=== PATIENT | female | born 1945 | race Caucasian/White ===

== ENCOUNTER 2018-05-21 18:34 | Inpatient (IN) | payer MEDICARE ==
[2018-05-21] MEDS ORDERED: Furosemide IV* 10 MG/ML VIAL (40 MG) IV ONE (19:06)
--- NOTE | 2018-05-21 19:13 | ED ---
Shortness of Breath - HPI Summary HPI Summary: This is a 72-year-old woman who presents to the emergency department with a history of progressive onset shortness of breath over the past several weeks. She had open heart surgery last month and apparently did well with that and felt generally well when she went home, but since that time she has become more and more short of breath. There has been some cough, occasionally productive of hicks green sputum. There is definitely orthopnea, the patient sleeps and rests in a recliner chair. There has not been any fever. Appetite has been diminished. There has been chest pain, but this appears to be related to her surgery, and has been present since that time area and there has been no change in the character or intensity of the chest pain. She has also been suffering reportedly from infection in the surgical wound in her leg where her grafting was done from. She was on Bactrim for this, is now on clindamycin. She has daily dressing changes with a visiting nurse. A chest x-ray was reportedly done 4 days ago. Her ability to exert herself and ambulate has been definitely impaired by this. - History of Current Complaint Chief Complaint: EDShortnessOfBreath Time Seen by Provider: 05/21/18 18:52 - Allergy/Home Medications Allergies/Adverse Reactions: Allergies Allergy/AdvReac Type Severity Reaction Status Date / Time cephalexin [From Keflex] Allergy Rash Verified 05/21/18 19:09 glucosamine Allergy Swelling Verified 05/21/18 19:09 ibuprofen Allergy Vomiting Verified 05/21/18 19:09 iodine Allergy Swelling Verified 05/21/18 19:09 metformin Allergy Diarrhea Verified 05/21/18 19:09 rofecoxib Allergy Unknown Verified 05/21/18 19:09 Reaction Details ropinirole [From Requip] Allergy Dizziness Verified 05/21/18 19:09 shrimp Allergy Hives Verified 05/21/18 19:09 Home Medications: Home Medications Docusate Sodium 100 mg PO BEDTIME 05/21/18 [History Confirmed 05/21/18] PMH/Surg Hx/FS Hx/Imm Hx Endocrine/Hematology History: Reports: Hx Diabetes Cardiovascular History: Reports: Hx Angina, Hx Hypercholesterolemia, Hx Hypertension Respiratory History: Reports: Hx Sleep Apnea GI History: Reports: Hx Gastroesophageal Reflux Disease, Hx Ulcer - Stomach Musculoskeletal History: Reports: Hx Arthritis, Hx Back Problems, Hx Fibromyalgia, Other Musculoskeletal History - Carpal Tunnel Left Wrist; Bilateral Knee Pain Sensory History: Reports: Hx Contacts or Glasses Denies: Hx Hearing Aid Opthamlomology History: Reports: Hx Contacts or Glasses Neurological History: Reports: Other Neuro Impairments/Disorders - Peripheral Neuropathy; Restless Leg Syndrome Psychiatric History: Reports: Hx Anxiety, Hx Depression, Hx Panic Disorder, Other Psychiatric Issues/Disorders - Insomnia - Cancer History Cancer Type, Location and Year: Squamous Cell Cancer - Surgical History Surgery Procedure, Year, and Place: Hysterectomy in 1989 at [facility] [place]; Laproscopic Tubal Ligation 1980 at [facility] [place]; Right Shoulder Surgery 1985 at [facility] [place]; Endoscopy in 1990 Infectious Disease History: No Infectious Disease History: Denies: Traveled Outside the [place] in Last 30 Days - Social History Alcohol Use: None Hx Substance Use: Yes Substance Use Type: Reports: Prescribed Smoking Status (MU): Current Some Day Smoker Type: Cigarettes Amount Used/How Often: 1-2 per day Have You Smoked in the Last Year: No Review of Systems Negative: Fever, Chills Eyes: Negative ENT: Negative Positive: Chest Pain - Chronic as noted in history of present illness Positive: Shortness Of Breath - As above Negative: Abdominal Pain, Vomiting, Diarrhea, Nausea Positive: no symptoms reported All Other Systems Reviewed And Are Negative: Yes Physical Exam - Summary Physical Exam Summary: General: This is a well-developed, well- nourished obese elderly woman lying on the stretcher in no apparent distress. The patient does not appear ill or toxic. HEENT:Extraocular movements are intact. Conjunctiva are normal without pallor. Pharynx is clear without exudate or swelling. Dentition is unremarkable. There is no sign of head trauma. Neck: Supple, no adenopathy noted. Lungs: Lungs are clear to auscultation. There are no signs of respiratory distress. I do not detect a pleural effusion on exam. Coronary: Peripheral perfusion is good. Heart sounds are regular, a normal S1 and S2 were auscultated. There is no gallop rhythm, nor any pathological sounded murmurs. Her sternotomy incision appears clean and dry. Abdomen: The abdomen appears normal and is nondistended. Normoactive bowel sounds are present. On palpation, there is no significant tenderness, nor any guarding or rebound. Genitourinary: Deferred Back: Good range of motion is observed. There are no surface abnormalities nor any scoliosis. Extremities: Good range of motion was observed in all 4 extremities. There is no sign of any trauma to the extremities. The surgical grafting sites on the left leg are moderately erythematous, and there is some bogginess about the incision and somewhat proximal to the incision concerning for a fluid collection. There is fairly marked peripheral edema noted in the skin is quite tense. Neurologic: The patient is awake and alert, speech is fluent in conversation is appropriate. There are no focal motor abnormalities. Cranial nerves are grossly intact. There is no ataxia observed. Psychiatric. The patients affect is felt to be normal and appropriate. There is no sign of any hallucinations or delusions, or any other signs of psychosis Triage Information Reviewed: Yes Vital Signs On Initial Exam: Initial Vitals Temp Pulse Resp BP Pulse Ox 36.6 C 81 20 129/72 93 05/21/18 18:36 05/21/18 18:36 05/21/18 18:36 05/21/18 18:36 05/21/18 18:36 Vital Signs Reviewed: Yes Diagnostics - Vital Signs Vital Signs Temp Pulse Resp BP Pulse Ox 05/21/18 18:36 36.6 C 81 20 129/72 93 - Laboratory Result Diagrams: 05/21/18 19:44 05/21/18 19:44 Lab Statement: Any lab studies that have been ordered have been reviewed, and results considered in the medical decision making process. - Radiology No standard instances Radiology Interpretation Completed By: ED Physician Summary of Radiographic Findings: CXR shows large left pleural effusion, stable compared to study of several days ago, with new right sided opacity, perhaps a RML infiltrate. Pending official Radiologist report. - EKG 2016 Cardiac Rate: NL EKG Rhythm: Sinus Rhythm - 81 BPM Summary of EKG Findings: Abnormal T, diffuse leads. Course/Dx - Diagnoses Provider Diagnoses: Peripheral edema, Dyspnea - Physician Notifications Discussed Care of Patient With: Bess Wang Time Discussed With Above Provider: 21:45 Instructed by Provider To: Admit As Inpatient Discharge - Sign-Out/Discharge Documenting (check all that apply): Patient Departure Patient Received Moderate/Deep Sedation with Procedure: No - Discharge Plan Condition: Fair Disposition: ADMITTED TO [facility] Referrals: Carlos Hurst MD [Primary Care Provider] - - Billing Disposition and Condition Condition: FAIR Disposition: Admitted to [facility] - Attestation Statements Document Initiated by Scribe: No
--- OUTSIDE RECORDS SUMMARY | 2018-05-21 19:45 | XMS REPORT | Continuity of Care Document ---
:1945 External Reference #:[id number] Author Name Riri Bolivar Care Team Providers Name Role Phone Alden Houston M.D. Care Team Information Head Well Puller Unavailable Payers Date Identification Numbers Payment Provider Subscriber Policy Number: [id number] [employer] Lily Yo PayID: [id number] [address] [address] Attn: [place] [address] Advance Directives Description No Information Available Problems Description No Information Family History Description No Information Available Social History Type Date Description Comments Sex Unknown Allergies, Adverse Reactions, Alerts Description No Information Medications Description No Information Immunizations Description No Information Available Vital Signs Description No Information Available Results Description No Information Available Procedures Date Code Description Status 04/13/2018 58605 Cath PLMT&NJX L Ventriculog Img S&I Completed 04/12/2018 03380 ECHO Transthorasic Realtime 2D W Doppler & Color Flow Hosp Completed 04/12/2018 34215 Treadmill Interp/Report Only Completed 04/12/2018 70029 Stress Test Supervsn W/Out I/R Completed Encounters Type Date Location Provider Dx Diagnosis Office Visit 04/12/2018 [facility] Polo Haney R07.9 Chest pain, 3:08p Of Ld Pope M.D. unspecified I25.110 Athscl heart disease of [place] cor art w unstable ang pctrs Plan of Treatment Future Appointment(s):05/12/2018 4:00 pm - Polo Pope M.D. at [facility]
--- OUTSIDE RECORDS SUMMARY | 2018-05-21 19:45 | XMS REPORT | Continuity of Care Document ---
:1945 External Reference #:[id number] Author Name Marlin Aaron Care Team Providers Name Role Phone Carlos Hurst MD Primary Care Physician Unavailable Payers Date Identification Numbers Payment Provider Subscriber Policy Number: [id number] [facility] [employer] Lily Yo PayID: [id number] [address] [address] Attn: [place] [address] Advance Directives Description No Information Available Problems Description No Information Family History Description No Information Available Social History Type Date Description Comments Sex Unknown Tobacco Use Start: Unknown End: Former Cigarette Smoker Unknown ETOH Use Denies alcohol use Tobacco Use Start: Unknown End: Patient is a former smoker Unknown Recreational Drug Use Denies Drug Use Tobacco Use Start: Unknown Heavy tobacco smoker (more than 10 cigarettes/day) Smoking Status Reviewed: 05/12/18 Heavy tobacco smoker (more than 10 cigarettes/day) Allergies, Adverse Reactions, Alerts Date Description Reaction Status Severity Comments 05/12/2018 Glucosamine Active 05/12/2018 Iodine Active 05/12/2018 Keflex Active 05/12/2018 Metformin Active 05/12/2018 Motrin Active 05/12/2018 Requip Active 05/12/2018 Rofecoxib Active Medications Medication Date Status Form Strength Qnty SIG Indications Ordering Provider Nortriptyline HCL Active Capsules 10mg 1 by mouth Unknown /0000 every day Omeprazole 00 Active Capsules 10mg 90cap 2 by mouth Unknown /0000 DR fallon every day Pioglitazone HCL 0000 Active Tablets 45mg 1 by mouth Unknown /0000 every day Pramipexole 00 Active Tablets 0.5mg 1 po at Unknown Dihydrochloride /0000 bedtime Pramipexole 0000 Active Tablets 1mg take 2 Unknown Dihydrochloride /0000 tablet by mouth at bedtime Pregabalin 00/00 Active 100mg 1 Unknown /0000 cap po every 8 hours Ventolin HFA Active Aerosol 108(90Bas 2 puffs by Unknown e) mouth four mcg/Act times a day as needed Sulfamethoxazole/Tr Active Tablets 800-160mg 1 po twice Skezmanisha imethoprim daily x 7 MD Carlos completed 05/218 Aspirin Active Tablets 81mg [address] every day Atorvastatin Active Tablets 40mg 1 tablet Unknown Calcium po daily Diclofenac Sodium Active Gel 1% as needed Aris, MD Carlos Glipizide ER Active Tablets 10mg 2 tablet Aris, ER 24HR po daily MD Carlos Hydrochlorothiazide Active Tablets 25mg Take One Unknown Tablet By Mouth Every Day Hydrocodone-Acetami Active Tablets 10-325mg 1-2 tablet Aris, nophen po every MD Carlos four hours as needed Losartan Potassium Active Tablets 100mg 1 po daily Bobezmanisha, MD Carlos Metoprolol Active Tablets 25mg Unknown Succinate ER /0000 ER 24HR Torsemide Active Tablets 10mg 90tab take 3 Polo s tablet by artis Mathis M.D. every day Immunizations Description No Information Available Vital Signs Date Vital Result Comment 05/12/2018 4:29pm Weight 247.00 lb with shoes Heart Rate 80 /min BP Systolic Sitting 120 mmHg Lue lg cuff BP Diastolic Sitting 62 mmHg Lue lg cuff BP Systolic Standing 120 mmHg Lue lg cuff BP Diastolic Standing 64 mmHg Lue lg cuff Respiratory Rate 16 /min Ejection Fraction 45-50% date 04/17/18 ECHO Results Description No Information Available Procedures Date Code Description Status 05/12/2018 05249 EKG Tracing & Interpretation Completed 04/13/2018 84396 Cath PLMT&NJX L Ventriculog Img S&I Completed 04/12/2018 72987 ECHO Transthorasic Realtime 2D W Doppler & Color Flow Hosp Completed 04/12/2018 07827 Treadmill Interp/Report Only Completed 04/12/2018 90876 Stress Test Supervsn W/Out I/R Completed 04/11/2018 80629 EKG, Interpretation Only Completed Encounters Type Date Location Provider Dx Diagnosis Office Visit 05/12/2018 [facility] Polo Haney I25.110 Athscl heart 4:00p Of Ld Pope M.D. disease of [place] cor art w unstable ang pctrs I10 Essential (primary) hypertension Office Visit 04/13/2018 [facility] I25.110 Athscl heart 9:45a [facility] [place] disease of Hospitalists [place] cor art w unstable ang pctrs I10 Essential (primary) hypertension Office Visit 04/12/2018 3:08p [facility] Polo Haney R07.9 Chest pain, Of Ld Pope M.D. unspecified I25.110 Athscl heart disease of [place] cor art w unstable ang pctrs Office Visit 04/11/2018 9:43a [facility] Idania Monae, R07.9 Chest pain , [facility] unspecified Hospitalists R06.02 Shortness of breath I10 Essential (primary) hypertension E11.9 Type 2 diabetes mellitus without complications Plan of Treatment Future Appointment(s):05/28/2018 2:30 pm - Abbey Wolfe, N.P. at [facility]05/12/2018 - Polo Pope M.D.I25.110 Atherosclerotic heart disease of [place] coronary artery withNew Labs:Basic Metabolic Panel, Ordered: 05/12/18Follow up:2 weeks with NPRecommendations:Increase Toresmide to 3 tabs [id number] Essential (primary) hypertension
--- OUTSIDE RECORDS SUMMARY | 2018-05-21 19:45 | XMS REPORT | Continuity of Care Document ---
:1945 External Reference #:[id number] Author Name Marlin Aaron Care Team Providers Name Role Phone Carlos Hurst MD Primary Care Physician Unavailable Payers Date Identification Numbers Payment Provider Subscriber Policy Number: [id number] [facility] [employer] Lily Yo PayID: [id number] [address] [address] Attn: [place] [address] Advance Directives Description No Information Available Problems [...] Available Procedures Date Code Description Status 05/12/2018 06615 EKG Tracing & Interpretation Completed 04/13/2018 58865 Cath PLMT&NJX L Ventriculog Img S&I Completed 04/12/2018 40585 ECHO Transthorasic Realtime 2D W Doppler & Color Flow Hosp Completed 04/12/2018 50814 Treadmill Interp/Report Only Completed 04/12/2018 05630 Stress Test Supervsn W/Out I/R Completed 04/11/2018 78166 EKG, Interpretation Only Completed Encounters Type Date Location Provider Dx Diagnosis Office Visit 05/12/2018 [facility] Polo Haney I25.110 Athscl heart 4:00p Of Ld Pope M.D. disease of [place] cor art w unstable ang pctrs I10 Essential (primary) hypertension Office Visit 04/13/2018 [facility] I25.110 Athscl heart 9:45a [facility] [place] disease of Hospitalists [place] cor art w unstable ang pctrs I10 Essential (primary) hypertension Office Visit 04/12/2018 3:08p [facility] Polo Haney R07.9 Chest pain, Of Ld Pope M.D. unspecified I25.110 Athscl heart disease of [place] cor art w unstable ang pctrs Office Visit 04/11/2018 9:43a [facility] Idania Monae, R07.9 Chest pain , [facility] N[facility] unspecified Hospitalists R06.02 Shortness of breath I10 Essential (primary) hypertension E11.9 Type 2 diabetes mellitus without complications Plan of Treatment 05/12/2018 - Polo Pope M.D.I25.110 Atherosclerotic heart disease of [place] coronary artery withNew Labs:Basic Metabolic Panel, Ordered: Follow up:2 weeks with NPRecommendations:Increase Toresmide to 3 tabs [id number] Essential (primary) hypertension
[2018-05-21 20:16] LABS: Troponin I 0.11 ng/mL (<0.04)
[2018-05-21 20:18] LABS: ABS Basophils 0.1 10^3/ul (0-0.2); ABS Lymphocytes 2.5 10^3/ul (1.0-4.8); ABS Monocytes 0.6 10^3/ul (0-0.8); ABS Neutrophils 5.5 10^3/ul (1.5-7.7); ABS Nucleated RBC 0 10^3/ul; Eosinophil % 9.9 %; Hematocrit 29 % (33-41); Hemoglobin 9.3 g/dL (12.0-16.0); Lymphocyte % 25.6 %; Mean Corpuscular HGB Conc 32 g/dL (31-36); Mean Corpuscular Hemoglobin 29 pg (27-31); Mean Corpuscular Volume 89 fL (80-97); Mean Platelet Volume 10.6 fL (7.4-10.4); Nucleated Red Blood Cells % 0; Platelet Count 174 10^3/uL (150-450); Red Blood Count 3.26 10^6 /uL (3.70-4.87); Red Cell Distribution Width 16 % (10.5-15); White Blood Count 9.6 10^3/uL (3.5-10.8)
[2018-05-21 20:19] LABS: ALT 5 U/L (7-52); AST 16 U/L (13-39); Albumin 3.9 g/dL (3.2-5.2); Albumin/Globulin Ratio 1.2 (1-3); Alkaline Phosphatase 92 U/L (34-104); Anion Gap 7 mmol/L (2-11); BUN/Creatinine Ratio 27.7 (8-20); Blood Urea Nitrogen 43 mg/dL (6-24); CO2 Carbon Dioxide 35 mmol/L (22-32); Calcium 9.7 mg/dL (8.6-10.3); Chloride 96 mmol/L (101-111); EGFR African American 39.8 (>60); EGFR Non-African American 32.9 (>60); Globulin 3.3 g/dL (2-4); Glucose 135 mg/dL (70-100); Potassium 4.2 mmol/L (3.5-5.0); Sodium 138 mmol/L (135-145); Total Protein 7.2 g/dL (6.4-8.9)
[2018-05-21] MEDS ORDERED: oxyCODONE/Acetamin 5/325 MG* TAB PO ONE (20:46)
[2018-05-21 20:48] LABS: Urine Appearance Clear; Urine Bilirubin Negative (Negative); Urine Blood Negative (Negative); Urine Color Straw; Urine Glucose Negative (Negative); Urine Ketones Negative (Negative); Urine Nitrite Negative (Negative); Urine Protein Negative (Negative); Urine Specific Gravity 1.006 (1.010-1.030); Urine Urobilinogen Negative (Negative)
[2018-05-21] MEDS ORDERED: Al Hydrox/Mg Hydrox/Simet LIQ* 30 ML UDC PO PRN (23:18)
[2018-05-21] MEDS ORDERED: Albuterol 2.5 MG/3 ML NEB.SOL* (0.083%) INH PRN (23:18)
[2018-05-22 00:12] LABS: Troponin I 0.12 ng/mL (<0.04)
[2018-05-22] MEDS ORDERED: Albuterol HFA INHALER* 8 gm MDI INH PRN (00:20)
[2018-05-22] MEDS ORDERED: NFT: Diclofenac 1% GEL (NF) 100 GM TUBE TOPICAL PRN (00:20)
[2018-05-22] MEDS ORDERED: Dextrose 50% Syringe 50 ML* 25 GM/50 ML SYRINGE IV PUSH PRN (00:51)
[2018-05-22] MEDS: Pregabalin CAP(*) 100 MG PO SCH ×3 (01:49→16:51)
[2018-05-22] MEDS: HYDROcodone/ACETAMIN 5-325 MG* 1 TAB PO PRN ×4 (01:49→21:20)
--- NOTE | 2018-05-22 03:24 | HP ---
CC: Dr. Hurst; Dr. Pope * HISTORY AND PHYSICAL: DATE OF ADMISSION: 05/21/18 TIME OF ADMISSION: 11 p.m. CHIEF COMPLAINT: Shortness of breath. HISTORY OF PRESENT ILLNESS: This is a 72-year-old female with history of coronary artery disease, status post CABG on 04/15/18 at [facility]. Her daughter is here with her today and brought her in because Lily has been progressively short of breath. They both agree that the shortness of breath has been ongoing since she left the hospital and has gotten worse over the past month. She was discharged from the hospital, 04/21/18 and since that time has had progressive shortness of breath at rest and with exertion. Even prior to the surgery, she had poor functional capacity and only walks around her small house. This has continued to be true postoperatively. However, over the past few days, she has barely been able to walk a few steps. She saw Dr. Pope in the office last week and was noted to be 20 pounds up from preop. He started her on Torsemide 40 mg daily and she notes that she has urinated well with this dose, but she does not think she has lost any weight and she has had no improvement in her symptom. She is unable to lie flat. However, she admits she has always slept on a recliner and not in bed. Her abdomen feels bloated. Her extremities are edematous and she has 2 L of oxygen that she wears nocturnally and over the past week, she has been wearing it continuously though she does not have pulse ox. They also do not weigh her at home because they do not have a scale. She has had ongoing pain at the incision site. No fevers. She has a cough with some phlegm and she is currently being treated for a cellulitis at the graft site on the left lower extremity where she also has pain. PAST MEDICAL HISTORY: Type 2 diabetes, chronic hypoxic respiratory failure with 2 L of oxygen at night, hypertension, obesity, chronic pain syndrome, restless leg syndrome and diabetic neuropathy. HOME MEDICATIONS: 1. Glipizide 20 mg daily. 2. Hydrochlorothiazide 25 mg daily. 3. Hydrocodone/acetaminophen 1 to 2 tabs q.4 p.r.n. pain. 4. Meclizine 25 mg t.i.d. 5. Albuterol 2 puffs q.4 p.r.n. 6. Aspirin 81 mg daily. 7. Diclofenac gel topical t.i.d. 8. Docusate 100 mg q.h.s. and 200 mg during the day. 9. Losartan 100 mg daily. 10. Nortriptyline 10 mg q.h.s. 11. Omeprazole 20 mg daily. 12. Pioglitazone 45 mg daily. 13. Pramipexole 1 mg t.i.d. 14. Pregabalin 100 mg q.8. SOCIAL HISTORY: She does not smoke. She does not use alcohol. She lives alone , but has VNS and an aide come in. Her healthcare proxy is her daughter Amaya. REVIEW OF SYSTEMS: As per the HPI. Remainder of the 14-point review of systems is negative. PHYSICAL EXAMINATION GENERAL: Alert, tired-appearing elderly female in no distress. She complains of pain frequently through my exam in her legs and back. VITAL SIGNS: Temperature 98.5, heart rate 84, respiratory rate 20, pulse ox 96 % on 2 L, blood pressure 105/59. HEENT: Pupils are 3 mm bilaterally and equally reactive to light. Oral mucosa is moist. No pharyngeal exudate, oral mucosa or lesions. NECK: She has JVP to her mandible sitting almost upright. CHEST: Her sternotomy incision is healing well. There is a crusty scab on the incision and at the inferior portion with no drainage or erythema. She is in a regular rate and rhythm. I do not hear any murmurs and her lungs have decreased breath sounds on the left side. ABDOMEN: Obese and also quite distended with no guarding or rebound. I cannot feel her liver. EXTREMITIES: 3+ edema to her thighs. Both legs are erythematous to the mid starks. The left graft site has 4 mm of erythema surrounding it with little drainage. The left heel has a large crack. NEUROLOGIC: Strength is 5/5 in all extremities. She is oriented x3 and she follows all commands. DIAGNOSTIC STUDIES/LAB DATA: White blood cells 9.6, hemoglobin 9.3, platelets 174. Sodium 138, potassium 4.2, chloride 96, bicarb 35, BUN 43, creatinine 1.55 , lactic acid 0.6. AST 16, ALT 15. Troponin 0.11. Venous Doppler study shows no evidence of DVT. Distal left femoral vein and left popliteal vein not visualized secondary to marked swelling and patient's pain level. Diffuse subcutaneous edema. EKG, normal sinus rhythm, normal axis, normal interval. Q in lead III, T-wave inversions in II, T-wave inversions in I and aVL, T-wave inversions in V4 through V6. The T-waves in V4 through V6 are new. ASSESSMENT AND PLAN: This is a 72-year-old female with a history of coronary artery disease status post coronary artery bypass graft on 04/15/18 presenting to the emergency department with 1 month of worsening shortness of breath and dyspnea on exertion and is found to be markedly volume overloaded. 1. Acute on chronic diastolic heart failure. Her last ejection fraction was noted to be 45% to 50% on an echocardiogram from April 2018. If anything I would expect this to have improved, since this was pre-CABG. The volume may be from her surgery, but it is unclear why else she would be retaining such fluid that was unresponsive to torsemide at home. I will order a new echocardiogram for tomorrow, start her on Bumex 2 mg b.i.d. (it should be noted that she has aversion to Lasix because of a family member having an adverse affect). I will trend her troponin. Request a Cardiology consult. She may also have post-CABG effusion. However, she has such evidence of global volume overload that I think is more than just a postop effusion. I also note that she is on pioglitazone, which can cause heart failure. So, I think this is a poor medication for her and I am discontinuing it. I am also adding daily weights and strict in's and out's. 2. Elevated troponin. I believe this is related to a type 2 demand in the setting of heart failure. However, she does have new EKG changes, but I would not expect her to have a graft occlusion this early and if so, I would expect ST elevations. So, I will continue to trend her troponin, continue her medical optimization and recheck an echo tomorrow. 3. Elevated D-dimer. Certainly, she is at risk for a PE given her recent surgery. I wish to keep this on the differential. However, at this point, her volume status clearly explains her shortness of breath and dyspnea on exertion. So, I will diurese her first and if she continues to be so symptomatic after diuresis, a PE will be a stronger consideration. 4. Left lower extremity cellulitis at the graft site. This is improving on outpatient clindamycin. I will continue the clindamycin that she has been taking, but I will make it IV. 5. Acute versus chronic kidney disease. We only have creatinine from April 2018, where she had one as low as 0.89 and one as high as 1.96. I would expect that if this is an acute kidney injury, it is related to vascular congestion and should improve with diuresis. While I think she needs afterload reduction, I am holding her losartan because it is unclear whether this is an acute kidney injury or a chronic kidney disease. 6. Hypertension. I am holding her hydrochlorothiazide in the setting of aggressive diuresis and possible acute kidney injury. 7. Type 2 diabetes. I am holding her home antihypertensive and starting her on a sliding scale and fingersticks a.c. h.s. 8. Chronic pain syndrome. I am continuing her home dose of hydrocodone and Lyrica. 9. DVT prophylaxis. Heparin subcu. [id number]/[facility] #: [id number] [facility]
[2018-05-22] MEDS: Heparin VIAL(*) 5000 UNITS/ML VIAL (FIVE THOUSAND) SUBCUT SCH ×3 (06:00→21:22)
[2018-05-22 06:02] LABS: ABS Basophils 0.2 10^3/ul (0-0.2); ABS Eosinophils 1.1 10^3/ul (0-0.6); ABS Lymphocytes 2.7 10^3/ul (1.0-4.8); ABS Monocytes 0.7 10^3/ul (0-0.8); ABS Neutrophils 5.1 10^3/ul (1.5-7.7); ABS Nucleated RBC 0 10^3/ul; Eosinophil % 11.4 %; Hematocrit 29 % (33-41); Hemoglobin 9.4 g/dL (12.0-16.0); Lymphocyte % 27.8 %; Mean Corpuscular HGB Conc 32 g/dL (31-36); Mean Corpuscular Hemoglobin 29 pg (27-31); Mean Corpuscular Volume 89 fL (80-97); Mean Platelet Volume 10.2 fL (7.4-10.4); Nucleated Red Blood Cells % 0.1; Platelet Count 169 10^3/uL (150-450); Red Blood Count 3.26 10^6 /uL (3.70-4.87); Red Cell Distribution Width 16 % (10.5-15); White Blood Count 9.8 10^3/uL (3.5-10.8)
[2018-05-22 06:20] LABS: Anion Gap 8 mmol/L (2-11); BUN/Creatinine Ratio 26.1 (8-20); Blood Urea Nitrogen 41 mg/dL (6-24); CO2 Carbon Dioxide 36 mmol/L (22-32); Calcium 9.6 mg/dL (8.6-10.3); Chloride 95 mmol/L (101-111); EGFR African American 39.2 (>60); EGFR Non-African American 32.4 (>60); Glucose 147 mg/dL (70-100); Potassium 3.6 mmol/L (3.5-5.0); Sodium 139 mmol/L (135-145)
[2018-05-22 06:24] LABS: Troponin I 0.09 ng/mL (<0.04)
[2018-05-22] MEDS ORDERED: Clindamycin 300 MG IVPREMIX(* 300 MG/50 ML SDV IV SCH ×2 (07:30→09:30)
[2018-05-22] MEDS: Insulin LISPRO* 1 UNITS UNIT SUBCUT SCH ×4 (08:37→21:22)
[2018-05-22] MEDS: Ferrous Sulfate TAB* 325 MG PO SCH (08:41)
[2018-05-22] MEDS: Docusate CAP* 100 MG PO SCH ×2 (08:42→21:20)
[2018-05-22] MEDS: Pantoprazole TAB * 40 MG TAB PO SCH (08:43)
[2018-05-22] MEDS: Ascorbic Acid TAB* 500 MG PO SCH (08:43)
[2018-05-22] MEDS: Aspirin EC TAB* 81 MG TAB.EC PO SCH (08:43)
[2018-05-22] MEDS: Bumetanide IV* 0.25 MG/ML 4 ML VIAL SLOW PUSH SCH ×2 (08:44→21:21)
[2018-05-22] MEDS ORDERED: Pramipexole TAB* 0.5 MG PO SCH (09:00)
[2018-05-22] MEDS ORDERED: Losartan TAB* 25 MG PO SCH (09:00)
[2018-05-22] MEDS ORDERED: Pioglitazone TAB* 30 MG PO SCH (09:00)
[2018-05-22] MEDS: Pramipexole TAB* 0.5 MG PO SCH ×3 (11:55→22:40)
[2018-05-22] MEDS ORDERED: Benzonatate CAP* 100 MG PO PRN (16:27)
--- NOTE | 2018-05-22 16:43 | PN ---
Subjective Date of Service: 05/22/18 Interval History: Pt denies any sob.c/o severe leg pain and swelling Objective Active Medications: Hydrocodone Bitart/Acetaminophen ([place] 5-325 Tab*) 1 tab PO Q4H PRN PRN Reason: PAIN Last Admin: 05/22/18 08:47 Dose: 1 tab Al Hydrox/Mg Hydrox/Simethicone (Maalox Plus*) 30 ml PO Q6H PRN PRN Reason: INDIGESTION Albuterol (Ventolin 2.5 Mg/3 Ml Neb.Amy*) 2.5 mg INH RT.[id number] AWAKE PRN PRN Reason: sob/wheezing Albuterol (Ventolin Hfa Inhaler*) 2 puff INH Q4H PRN PRN Reason: WHEEZING Ascorbic Acid (Vitamin C Tab*) 500 mg PO DAILY [facility] Last Admin: 05/22/18 08:43 Dose: 500 mg Aspirin (Aspirin Ec Tab*) 81 mg PO DAILY [facility] Last Admin: 05/22/18 08:43 Dose: 81 mg Benzonatate (Tessalon Cap*) 100 mg PO BID PRN PRN Reason: COUGH Bumetanide (Bumex*) 2 mg SLOW PUSH BID [facility] Last Admin: 05/22/18 08:44 Dose: 2 mg Dextrose (D50w Syringe 50 Ml*) 12.5 gm IV PUSH .FOR FS < 60 - SS PRN PRN Reason: FS < 60 Diclofenac Sodium (Voltaren 1% Gel (Nf)) 1 applic TOPICAL TID PRN; Protocol PRN Reason: PAIN Docusate Sodium (Colace Cap*) 100 mg PO BEDTIME LIZA Docusate Sodium (Colace Cap*) 200 mg PO DAILY [facility] Last Admin: 05/22/18 08:42 Dose: 200 mg Ferrous Sulfate (Ferrous Sulfate Tab*) 325 mg PO DAILY [facility] Last Admin: 05/22/18 08:41 Dose: 325 mg Heparin Sodium (Porcine) (Heparin Vial(*)) 5,000 units SUBCUT Q8HR [facility] Last Admin: 05/22/18 13:47 Dose: 5,000 units Insulin Human Lispro (Humalog*) 0 units SUBCUT ACHS [facility]; Protocol Last Admin: 05/22/18 11:56 Dose: 3 units Nortriptyline HCl (Pamelor Cap*) 10 mg PO BEDTIME [facility] Pantoprazole Sodium (Protonix Tab*) 40 mg PO DAILY [facility] Last Admin: 05/22/18 08:43 Dose: 40 mg Pramipexole Dihydrochloride (Mirapex Tab*) 1 mg PO 1200,1500,2100 [facility] Last Admin: 05/22/18 15:04 Dose: 1 mg Pregabalin (Lyrica Cap(*)) 100 mg PO Q8H [facility] Last Admin: 05/22/18 08:38 Dose: 100 mg Vital Signs - 8 hr 05/22/18 05/22/18 05/22/18 08:38 08:47 10:40 Temperature Pulse Rate Respiratory 17 17 17 Rate Blood Pressure (mmHg) O2 Sat by Pulse Oximetry 05/22/18 05/22/18 05/22/18 10:47 10:52 15:03 Temperature 97.7 F 97.3 F Pulse Rate 82 93 Respiratory 17 20 24 Rate Blood Pressure 122/67 110/60 (mmHg) O2 Sat by Pulse 100 92 Oximetry Oxygen Devices in Use Now: Nasal Cannula Eyes: No Scleral Icterus Ears/Nose/Mouth/Throat: NL Teeth, Lips, Gums Neck: - - jvd+ Respiratory: Symmetrical Chest Expansion and Respiratory Effort, - - dec breath sounds no crackles Cardiovascular: NL Sounds; No Murmurs; No JVD Extremities: - - 2+ edema stasis dermatitis, erythema dressing in place Neurological: Alert and Oriented x 3 Result Diagrams: 05/22/18 05:35 05/22/18 05:35 Microbiology and Other Data: Microbiology 05/22/18 03:25 Nasal Screen MRSA (PCR) - Final Nasal Mrsa Not Detected Assess/Plan/Problems-Billing Assessment: - Patient Problems (1) Acute on chronic diastolic (congestive) heart failure Current Visit: Yes Status: Acute Code(s): I50.33 - ACUTE ON CHRONIC DIASTOLIC (CONGESTIVE) HEART FAILURE SNOMED Code(s): 782907713 Comment: EF around 50% on prior echo Volume overload Was on torsemide at home On Bumex 2 mg iv bid and diuresing Can switch to bumex drip for agressive diuresis but pt reports peeing a lot since this am.Will eval on current dose (2) CAD (coronary artery disease) Current Visit: Yes Status: Acute Code(s): I25.10 - ATHSCL HEART DISEASE OF [place] CORONARY ARTERY W/O ANG PCTRS SNOMED Code(s): 76801630 Comment: s/p CABG 04/15/18 (3) Troponin level elevated Current Visit: Yes Status: Acute Code(s): R74.8 - ABNORMAL LEVELS OF OTHER SERUM ENZYMES SNOMED Code(s): 318106729 Comment: Likely related to volume and demand ischemia No sig ekg changes, no cp s/p CABG 04/15/18 (4) Cellulitis Current Visit: Yes Status: Acute Code(s): L03.90 - CELLULITIS, UNSPECIFIED SNOMED Code(s): 098405570 Comment: Was on clindamycin as outpatient which will be continued If worsening consider further coverage with IV (5) VIRGIL (acute kidney injury) Current Visit: Yes Status: Acute Code(s): N17.9 - ACUTE KIDNEY FAILURE, UNSPECIFIED SNOMED Code(s): 93464667 Comment: Poss cardiorenal syndrome Prior Cr 0.8 to 1 Fluctuating course likely related to CRS Losartan currently on hold Can restart when stable Diuresis as above and follow renal fx
[2018-05-22 19:00] LABS: Urine Appearance Clear; Urine Bilirubin Negative (Negative); Urine Blood Negative (Negative); Urine Color Yellow; Urine Glucose Negative (Negative); Urine Ketones Negative (Negative); Urine Nitrite Negative (Negative); Urine Protein Negative (Negative); Urine Urobilinogen Negative (Negative)
[2018-05-22] MEDS: Nortriptyline CAP* 10 MG PO SCH (21:20)
[2018-05-22] MEDS: Clindamycin CAP* 150 MG PO SCH (21:20)
[2018-05-23] MEDS: Pregabalin CAP(*) 100 MG PO SCH ×4 (00:54→23:12)
[2018-05-23] MEDS: Heparin VIAL(*) 5000 UNITS/ML VIAL (FIVE THOUSAND) SUBCUT SCH ×3 (05:41→20:39)
[2018-05-23 05:52] LABS: ABS Basophils 0.2 10^3/ul (0-0.2); ABS Eosinophils 1.1 10^3/ul (0-0.6); ABS Lymphocytes 3.1 10^3/ul (1.0-4.8); ABS Monocytes 0.6 10^3/ul (0-0.8); ABS Neutrophils 5.3 10^3/ul (1.5-7.7); ABS Nucleated RBC 0 10^3/ul; Eosinophil % 10.5 %; Hematocrit 29 % (33-41); Hemoglobin 9.6 g/dL (12.0-16.0); Mean Corpuscular HGB Conc 33 g/dL (31-36); Mean Corpuscular Hemoglobin 29 pg (27-31); Mean Corpuscular Volume 88 fL (80-97); Mean Platelet Volume 10.3 fL (7.4-10.4); Nucleated Red Blood Cells % 0; Platelet Count 185 10^3/uL (150-450); Red Blood Count 3.31 10^6 /uL (3.70-4.87); Red Cell Distribution Width 15 % (10.5-15); White Blood Count 10.3 10^3/uL (3.5-10.8)
[2018-05-23 06:10] LABS: BUN/Creatinine Ratio 26.9 (8-20); Calcium 9.2 mg/dL (8.6-10.3); EGFR African American 48.7 (>60); EGFR Non-African American 40.3 (>60); Potassium 3.5 mmol/L (3.5-5.0)
[2018-05-23] MEDS: HYDROcodone/ACETAMIN 5-325 MG* 1 TAB PO PRN ×4 (06:14→22:22)
[2018-05-23] MEDS ORDERED: Perflutren Lipid Microsphere* 3 ML VIAL ONE (07:25)
[2018-05-23] MEDS: Aspirin EC TAB* 81 MG TAB.EC PO SCH (08:27)
[2018-05-23] MEDS: Ascorbic Acid TAB* 500 MG PO SCH (08:27)
[2018-05-23] MEDS: Ferrous Sulfate TAB* 325 MG PO SCH (08:27)
[2018-05-23] MEDS: Pantoprazole TAB * 40 MG TAB PO SCH (08:27)
[2018-05-23] MEDS: Clindamycin CAP* 150 MG PO SCH ×3 (08:28→20:38)
[2018-05-23] MEDS: Bumetanide IV* 0.25 MG/ML 4 ML VIAL SLOW PUSH SCH ×2 (08:29→20:38)
[2018-05-23] MEDS: Docusate CAP* 100 MG PO SCH ×2 (08:29→20:39)
[2018-05-23] MEDS: Insulin LISPRO* 1 UNITS UNIT SUBCUT SCH ×4 (08:30→22:25)
--- NOTE | 2018-05-23 10:45 | ECHO ---
Patient: JF RIVERO [facility] Rec#: [id number] : 1945 Date: 05/23/2018 Age: 72y Height: 170 cm / 66.9 in Weight: 112 kg / 246.8 lbs Sex: F BSA: 2.21 Room#: 452 Admit Date#: 05/21/2018 Type: Inpatient Referring: Bess Wang MD Reading: Polo Pope MD Anode Machine Operator: Esperanza Penn,RDCS,RDMS CC: Carlos Hurst MD Transthoracic Echocardiogram Indication: CHF BP: 110/50 HR: 85 Rhythm: NSR Findings History: S/P CABG. CAD, CHF, IKE, HTN, DM, smoker Technical Comments: The study is technically limited due to poor parasternal windows. Left Ventricle: The left ventricular chamber size is normal. Moderate concentric left ventricular hypertrophy is observed. Global left ventricular wall motion and contractility are within normal limits. There is normal left ventricular systolic function. The estimated ejection fraction is 55-60%. Ventricular septal wall motion has a post-operative appearance. There is an E to A reversal in the mitral valve flow pattern suggestive of diastolic dysfunction. Left Atrium: The left atrium is mild to moderately dilated. Right Ventricle: The right ventricular chamber size and systolic function are within normal limits. Right Atrium: The right atrium is mild to moderately dilated. Aortic Valve: The aortic valve structure is not well visualized. The aortic valve leaflets are mildly thickened. There is no evidence of aortic regurgitation. There is borderline aortic stenosis present. The mean gradient of the aortic valve is 9 mmHg. The aortic valve area, by peak velocities, is calculated at 1.4 cm2. Mitral Valve: The mitral valve leaflets are mildly thickened. There is no evidence of mitral regurgitation. There is no evidence of mitral stenosis. Tricuspid Valve: The tricuspid valve structure is not well visualized. There is no evidence of tricuspid valve regurgitation. Unable to estimate the right ventricular systolic pressure. Pulmonic Valve: The pulmonic valve structure is not well visualized. There is no evidence of pulmonic regurgitation. Pericardium: There is a small pericardial effusion. Small to moderate. Appears loculated to the apical and inferior regions. No evidence of tamponade Aorta: The ascending aorta is not well visualized. There is no dilatation of the aortic arch. The aortic root is normal in size. Pulmonary Artery: The main pulmonary artery is not well visualized. Venous: The inferior vena cava appears normal in size. There is less than 50% respiratory change in the inferior vena cava dimension. Conclusions Moderate concentric left ventricular hypertrophy is observed. Global left ventricular wall motion and contractility are within normal limits. There is normal left ventricular systolic function. The estimated ejection fraction is 55-60%. Ventricular septal wall motion has a post-operative appearance. The right ventricular chamber size and systolic function are within normal limits. There is no evidence of aortic regurgitation. There is borderline aortic stenosis present. The mean gradient of the aortic valve is 9 mmHg. There is no evidence of mitral regurgitation. There is no evidence of tricuspid valve regurgitation. Unable to estimate the right ventricular systolic pressure. There is a small pericardial effusion. Small to moderate. Appears loculated to the apical and inferior regions. No evidence of tamponade Compared to study of 04/2018 (prior to CABG) the LV funciton has improved (was 45%) the valve structures are the same, the pericardial effusion is new Measurements Name Value Normal Range RVIDd (AP) 2D 3.3 cm (0.9 - 2.6) RVDdMajor (2D) 2.7 cm (2.2 - 4.4) RAd ISD 4CH 6.3 cm (3.4 - 4.9) RA (A4C)W 3.8 cm (2.9 - 4.6) IVSd (2D) 1.5 cm (0.6 - 1) LVPWd (2D) 1.5 cm (0.6 - 1) LVIDd (2D) 4.2 cm (3.6 - 5.4) Aortic Annulus 2 cm (1.4 - 2.6) Ao root diameter (2D) 2.5 cm (2.1 - 3.5) Ascending Ao 2.2 cm (2.1 - 3.4) LA dimension (AP) 2D 3.7 cm (2.3 - 3.8) LAd ISD 4CH 6.3 cm (2.9 - 5.3) LA ISD 4CH W 4.3 cm (2.5 - 4.5) Name Value Normal Range LA ESV BP (A/L) index 26 ml/m2 - Name Value Normal Range MV E-wave Vmax 0.9 m/sec - MV deceleration time 116 msec - MV A-wave Vmax 1.1 m/sec - MV E:A ratio 0.8 ratio - LV septal e' Vmax 0.07 m/sec - LV lateral e' Vmax 0.06 m/sec - LV E:e' septal ratio 13 ratio - LV E:e' lateral ratio 16 ratio - Name Value Normal Range AV Vmax 2.2 m/sec - AV VTI 41 cm - AV peak gradient 19 mmHg - AV mean gradient 9 mmHg - LVOT diameter 2 cm - LVOT Vmax 1 m/sec - LVOT VTI 18 cm - LVOT peak gradient 4 mmHg - LVOT mean gradient 2 mmHg - DOI (VTI) 0.4 ratio - KRISTIN (continuity Vmax) 1.4 cm2 - KRISTIN (continuity VTI) 1.4 cm2 - Name Value Normal Range MV Vmax 1.3 m/sec - MV VTI 35 cm - MV peak gradient 7 mmHg - MV mean gradient 3 mmHg - MV PHT 63 msec - MVA (PHT) 3.5 cm2 - MVA (continuity VTI) 1.6 cm2 - Name Value Normal Range RAP 8 mmHg - IVC diameter 2 cm - Name Value Normal Range PV Vmax 0.8 m/sec - PV peak gradient 2.6 mmHg -
[2018-05-23] MEDS: Pramipexole TAB* 0.5 MG PO SCH ×3 (12:24→20:48)
[2018-05-23] MEDS: predniSONE TAB* 50 MG PO SCH ×2 (12:24→20:38)
--- NOTE | 2018-05-23 13:20 | CONS ---
CC: Dr. Mohamud Hurst at [facility] * CARDIOLOGY CONSULTATION REPORT: DATE OF CONSULT: 05/23/18 INDICATION FOR CONSULTATION: Congestive heart failure, coronary artery disease. HISTORY OF PRESENT ILLNESS: The patient is a 72-year-old female who I consulted on at the beginning of April, she was admitted to the hospital with acute coronary syndrome. A stress at that time shows a large area of ischemia to inferolateral wall. Her cardiac catheterization showed 3-vessel coronary artery disease. She was transferred to [facility] and underwent 3-vessel bypass. The patient was discharged from the hospital after 7 days. I had seen the patient last week in followup, at that time, she had some significant lower extremity edema as well as what appeared to be cellulitis in the left lower extremity. At that time, my recommendation was to increase her torsemide to 30 mg a day in hopes of more aggressive diuresis. Despite that, she continued to have increasing shortness of breath and was admitted to the hospital on 05/21/18 with severe shortness of breath, cough, orthopnea. There was no evidence of fevers or chills, no evidence of ischemic EKG changes. Her troponins were minimally elevated. Since being in the hospital, the patient has been changed from torsemide to Bumex. She has been on 2 mg of Bumex IV every 12 hours and since then has diuresed about 4 L of fluid. In speaking with the patient today, she says her breathing is much better although she still has a cough productive of white sputum. Her greatest complaint is the pain in her left leg that radiates up into her hip. Today, she underwent an echocardiogram, which showed a normal LV size and systolic function, which is an improvement of her LV function from before her bypass. Her EF before bypass was about 45%. The patient has no significant valvular abnormalities. The patient does have a moderate-sized pericardial effusion that appears loculated to the apex and inferior wall. There is no evidence of hemodynamic compromise. PAST MEDICAL HISTORY: Significant for diabetes, hypertension, chronic back pain , coronary artery disease status post coronary artery bypass surgery last month. MEDICATIONS: Her medications on admission were: 1. Aspirin 81 mg a day. 2. Colace 200 mg a day. 3. Glipizide 20 mg a day. 4. Hydrochlorothiazide 25 mg a day. 5. Hydrocodone as needed. 6. Losartan 100 mg a day. 7. Nortriptyline 10 mg q.h.s. 8. Prilosec 20 mg a day. 9. Mirapex 1 mg 3 times a day. 10. Lyrica 100 mg 3 times a day. 11. Actos 45 mg a day. ALLERGIES: She is allergic to KEFLEX, IBUPROFEN, IODINE, METFORMIN. FAMILY HISTORY: No family history of early coronary artery disease. SOCIAL HISTORY: She lives alone. She was a previous half pack a day smoker, she quit after her bypass. She is retired. Her daughter is very involved in her care. REVIEW OF SYSTEMS: Positive for back pain. Positive for edema. Negative for fevers and chills. Negative for changes in her bowel or bladder habits. Other 12- point review is unremarkable. PHYSICAL EXAM: Height is 5 feet 7 inches, weight is 243 pounds. Her weight prior to her bypass was 220 pounds. Temperature 97.3, heart rate is 83, blood pressure 130/74, respiratory rate is 17, oxygen saturation 94% on room air. Sclerae anicteric. Oropharynx is pink without erythema. Carotids are 2+ without bruits. JVD is normal. Thyroid is normal. Cardiac Exam: S1, S2. Distant heart sounds. No murmurs, rubs, or gallops. PMI is difficult to assess. Lungs have decreased breath sounds on the left. There is mild rhonchi. Abdomen is obese, soft, nontender, and nondistended with normoactive bowel sounds. Extremities show 3+ pitting and nonpitting edema. She has 2+ pulses throughout. The patient is awake, alert, and oriented. She moves all 4 extremities equally. Her sternum is stable. Her incision in her sternum is stable. Her left lower extremity does have significant erythema and edema. There is no obvious fluctuance. DIAGNOSTIC STUDIES/LAB DATA: White count 10.3, hemoglobin 10, hematocrit 29, platelet count 185. Chemistries within normal limits. BUN 35, creatinine 1.3, which is down from her high creatinine of 2.0. AST and ALT were normal. Peak troponin level was 0.12. EKG shows normal sinus rhythm with nonspecific T-wave changes. IMPRESSION: This is a 72-year-old female with a history of coronary artery disease status post bypass surgery last month who is admitted to the hospital with shortness of breath. The patient's shortness of breath and edema are multifactorial. She does have a moderate-sized pericardial effusion. There is no evidence of tamponade. There is also a pleural effusion on chest x-ray. The patient does have significant lower extremity edema. Overall, her edema looks better than when I saw her last week. The patient has a significant amount of erythema and edema in her left leg. 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 She does have both pleural and pericardial effusions. The patient also has some significant erythema associated with her leg wound from her vein graft harvesting. The patient is on antibiotics. She is on daily diuretics. Overall, she continues to diurese slowly. I am concerned that there may be an abscess in her left lower extremity. I think a CAT scan of her left lower extremity is appropriate. Ultrasound of the lower extremity could not completely eliminate the possibility of a DVT. I think it is worthwhile doing a CTA of her chest to rule out pulmonary embolism. Further recommendations pending results of these tests. The patient will start back on her losartan if her blood pressure requires. The patient should concentrate her medical therapy and diuresis. [id number]/CPS #: [id number] MTDD
--- NOTE | 2018-05-23 13:54 | PN ---
Subjective Date of Service: 05/23/18 Interval History: Pt examined at bedside.Reports improvement in breathing Objective Active Medications: Hydrocodone Bitart/Acetaminophen ([place] 5-325 Tab*) 1 tab PO Q4H PRN PRN Reason: PAIN Last Admin: 05/23/18 11:15 Dose: 1 tab Al Hydrox/Mg Hydrox/Simethicone (Maalox Plus*) 30 ml PO Q6H PRN PRN Reason: INDIGESTION Albuterol (Ventolin 2.5 Mg/3 Ml Neb.Amy*) 2.5 mg INH [id number] AWAKE PRN PRN Reason: sob/wheezing Albuterol (Ventolin Hfa Inhaler*) 2 puff INH Q4H PRN PRN Reason: WHEEZING Ascorbic Acid (Vitamin C Tab*) 500 mg PO DAILY [facility] Last Admin: 05/23/18 08:27 Dose: 500 mg Aspirin (Aspirin Ec Tab*) 81 mg PO DAILY [facility] Last Admin: 05/23/18 08:27 Dose: 81 mg Benzonatate (Tessalon Cap*) 100 mg PO BID PRN PRN Reason: COUGH Bumetanide (Bumex*) 2 mg SLOW PUSH BID [facility] Last Admin: 05/23/18 08:29 Dose: 2 mg Clindamycin HCl (Cleocin Cap*) 300 mg PO TID [facility] Last Admin: 05/23/18 13:21 Dose: 300 mg Dextrose (D50w Syringe 50 Ml*) 12.5 gm IV PUSH .FOR FS < 60 - SS PRN PRN Reason: FS < 60 Diclofenac Sodium (Voltaren 1% Gel (Nf)) 1 applic TOPICAL TID PRN; Protocol PRN Reason: PAIN Docusate Sodium (Colace Cap*) 100 mg PO BEDTIME [facility] Last Admin: 05/22/18 21:20 Dose: 100 mg Docusate Sodium (Colace Cap*) 200 mg PO DAILY [facility] Last Admin: 05/23/18 08:29 Dose: 200 mg Ferrous Sulfate (Ferrous Sulfate Tab*) 325 mg PO DAILY [facility] Last Admin: 05/23/18 08:27 Dose: 325 mg Heparin Sodium (Porcine) (Heparin Vial(*)) 5,000 units SUBCUT Q8HR [facility] Last Admin: 05/23/18 13:21 Dose: 5,000 units Insulin Human Lispro (Humalog*) 0 units SUBCUT ACHS [facility]; Protocol Last Admin: 05/23/18 12:24 Dose: 3 units Nortriptyline HCl (Pamelor Cap*) 10 mg PO BEDTIME [facility] Last Admin: 05/22/18 21:20 Dose: 10 mg Pantoprazole Sodium (Protonix Tab*) 40 mg PO DAILY [facility] Last Admin: 05/23/18 08:27 Dose: 40 mg Pramipexole Dihydrochloride (Mirapex Tab*) 1 mg PO 1200,1500,2100 [facility] Last Admin: 05/23/18 13:21 Dose: 1 mg Prednisone (Deltasone Tab*) 50 mg PO Q8H [facility] Stop: 05/24/18 04:01 Last Admin: 05/23/18 12:24 Dose: 50 mg Pregabalin (Lyrica Cap(*)) 100 mg PO Q8H [facility] Last Admin: 05/23/18 08:27 Dose: 100 mg Vital Signs - 8 hr 05/23/18 05/23/18 05/23/18 06:14 08:00 08:10 Temperature 97.3 F Pulse Rate 83 Respiratory 20 17 20 Rate Blood Pressure 130/54 (mmHg) O2 Sat by Pulse 94 Oximetry 05/23/18 05/23/18 05/23/18 08:27 10:02 11:15 Temperature Pulse Rate Respiratory 17 17 18 Rate Blood Pressure (mmHg) O2 Sat by Pulse Oximetry 05/23/18 05/23/18 11:47 12:02 Temperature 98.6 F Pulse Rate 86 Respiratory 20 17 Rate Blood Pressure 110/65 (mmHg) O2 Sat by Pulse 96 Oximetry Eyes: No Scleral Icterus Neck: - - jvd+ Respiratory: Symmetrical Chest Expansion and Respiratory Effort, Clear to Auscultation Cardiovascular: NL Sounds; No Murmurs; No JVD Extremities: - - Edema bilateral LE improved. Erythema present.Dressing intact Result Diagrams: 05/23/18 05:46 05/23/18 05:46 Microbiology and Other Data: Microbiology 05/22/18 03:25 Nasal Screen MRSA (PCR) - Final Nasal Mrsa Not Detected Assess/Plan/Problems-Billing Assessment: - Patient Problems (1) Hanna syndrome Current Visit: Yes Status: Acute Code(s): I24.1 - HANNA'S SYNDROME SNOMED Code(s): 98149404 Comment: mod pericardial effusion on echo no hemodynamic compromise pleural effusion appreciate dr bennett's input cta of chest to eval for PE (2) Acute on chronic diastolic (congestive) heart failure Current Visit: Yes Status: Acute Code(s): I50.33 - ACUTE ON CHRONIC DIASTOLIC (CONGESTIVE) HEART FAILURE SNOMED Code(s): 998204396 Comment: EF around 50% on prior echo Volume overload Was on torsemide at home On Bumex 2 mg iv bid and diuresing Monitor BP and vitals closely No hemodynamic compromise from pericardial effusion CTA chest to eval for PE CTA in am as pt has an allergy to contrast but has tolerated contrast for heart cath.Premedicate with 50 mg q8h * [address] in am which is what she had prior to her cath. Data not supportive of mucomyst use for renoprotection and in addition pt does not want to drink it (3) CAD (coronary artery disease) Current Visit: Yes Status: Acute Code(s): I25.10 - ATHSCL HEART DISEASE OF [place] CORONARY ARTERY W/O ANG PCTRS SNOMED Code(s): 41782683 Comment: s/p CABG 04/15/18 (4) Troponin level elevated Current Visit: Yes Status: Acute Code(s): R74.8 - ABNORMAL LEVELS OF OTHER SERUM ENZYMES SNOMED Code(s): 929490515 Comment: Likely related to volume and demand ischemia No sig ekg changes, no cp s/p CABG 04/15/18 (5) Cellulitis Current Visit: Yes Status: Acute Code(s): L03.90 - CELLULITIS, UNSPECIFIED SNOMED Code(s): 131707409 Comment: Was on clindamycin as outpatient which will be continued If worsening consider further coverage with IV CT LE to eval for abscess per d/w cardiology (6) VIRGIL (acute kidney injury) Current Visit: Yes Status: Acute Code(s): N17.9 - ACUTE KIDNEY FAILURE, UNSPECIFIED SNOMED Code(s): 93987618 Comment: Poss cardiorenal syndrome Prior Cr 0.8 to 1 Fluctuating course likely related to CRS Losartan currently on hold Can restart when stable Diuresis as above and follow renal fx
[2018-05-23] MEDS: Nortriptyline CAP* 10 MG PO SCH (20:48)
[2018-05-24] MEDS: predniSONE TAB* 50 MG PO SCH (03:30)
[2018-05-24] MEDS: HYDROcodone/ACETAMIN 5-325 MG* 1 TAB PO PRN ×2 (03:31→09:31)
[2018-05-24] MEDS: Morphine 4 MG/ML VIAL (1 ml) 4 MG/ML VIAL IV PRN ×3 (03:58→21:01)
[2018-05-24] MEDS: Heparin VIAL(*) 5000 UNITS/ML VIAL (FIVE THOUSAND) SUBCUT SCH ×3 (05:29→20:31)
[2018-05-24 06:46] LABS: ABS Basophils 0.1 10^3/ul (0-0.2); ABS Eosinophils 0 10^3/ul (0-0.6); ABS Lymphocytes 1.3 10^3/ul (1.0-4.8); ABS Monocytes 0.2 10^3/ul (0-0.8); ABS Neutrophils 9.4 10^3/ul (1.5-7.7); ABS Nucleated RBC 0 10^3/ul; Eosinophil % 0.1 %; Hematocrit 31 % (33-41); Lymphocyte % 12.2 %; Mean Corpuscular HGB Conc 32 g/dL (31-36); Mean Corpuscular Hemoglobin 29 pg (27-31); Mean Corpuscular Volume 88 fL (80-97); Mean Platelet Volume 10.2 fL (7.4-10.4); Nucleated Red Blood Cells % 0; Platelet Count 171 10^3/uL (150-450); Red Blood Count 3.51 10^6 /uL (3.70-4.87); Red Cell Distribution Width 15 % (10.5-15)
[2018-05-24 07:06] LABS: BUN/Creatinine Ratio 27.6 (8-20); Calcium 9.4 mg/dL (8.6-10.3); EGFR Non-African American 41.4 (>60); Potassium 3.9 mmol/L (3.5-5.0)
[2018-05-24] MEDS ORDERED: diPHENhydraMINE PO* 50 MG PO ONE (08:26)
[2018-05-24] MEDS ORDERED: predniSONE TAB* 50 MG PO ONE (08:26)
[2018-05-24] MEDS: Pregabalin CAP(*) 100 MG PO SCH ×2 (09:31→17:47)
[2018-05-24] MEDS: Ascorbic Acid TAB* 500 MG PO SCH (09:31)
[2018-05-24] MEDS: Pantoprazole TAB * 40 MG TAB PO SCH (09:31)
[2018-05-24] MEDS: Aspirin EC TAB* 81 MG TAB.EC PO SCH (09:31)
[2018-05-24] MEDS: Clindamycin CAP* 150 MG PO SCH ×3 (09:31→20:30)
[2018-05-24] MEDS: Ferrous Sulfate TAB* 325 MG PO SCH ×2 (09:32→09:35)
[2018-05-24] MEDS: Insulin LISPRO* 1 UNITS UNIT SUBCUT SCH ×4 (09:32→21:13)
[2018-05-24] MEDS: Docusate CAP* 100 MG PO SCH ×2 (09:32→20:30)
[2018-05-24] MEDS: Bumetanide IV* 0.25 MG/ML 4 ML VIAL SLOW PUSH SCH ×2 (09:32→20:29)
[2018-05-24] MEDS: Pramipexole TAB* 0.5 MG PO SCH ×3 (13:16→20:37)
[2018-05-24] MEDS ORDERED: Dextrose 50% Syringe 50 ML* 25 GM/50 ML SYRINGE IV PUSH PRN (17:16)
[2018-05-24] MEDS ORDERED: Insulin LISPRO* 1 UNITS UNIT SUBCUT ONE (17:16)
--- NOTE | 2018-05-24 18:47 | PN ---
Subjective Date of Service: 05/24/18 Interval History: Pt states she is doing well. She expresses that she had some anxiety early about her LLE and possible abscess, but this is relieved with results. She still c/o tenderness at sight. She denies CP, fever, SOB, abd n/v/d/c, calf tenderness. She does c/o cough, which is chronic. She also states she is tired. Objective Active Medications: Hydrocodone Bitart/Acetaminophen ([place] 5-325 Tab*) 1 tab PO Q4H PRN Al Hydrox/Mg Hydrox/Simethicone (Maalox Plus*) 30 ml PO Q6H PRN Albuterol (Ventolin 2.5 Mg/3 Ml Neb.Amy*) 2.5 mg INH [id number] AWAKE PRN Albuterol (Ventolin Hfa Inhaler*) 2 puff INH Q4H PRN Ascorbic Acid (Vitamin C Tab*) 500 mg PO DAILY LIZA Aspirin (Aspirin Ec Tab*) 81 mg PO DAILY LIZA Benzonatate (Tessalon Cap*) 100 mg PO BID PRN Bumetanide (Bumex*) 2 mg SLOW PUSH BID LIZA Clindamycin HCl (Cleocin Cap*) 300 mg PO TID LIZA Dextrose (D50w Syringe 50 Ml*) 12.5 gm IV PUSH .FOR FS < 60 - SS PRN Diclofenac Sodium (Voltaren 1% Gel (Nf)) 1 applic TOPICAL TID PRN; Protocol Docusate Sodium (Colace Cap*) 100 mg PO BEDTIME LIZA Docusate Sodium (Colace Cap*) 200 mg PO DAILY LIZA Ferrous Sulfate (Ferrous Sulfate Tab*) 325 mg PO DAILY LIZA Heparin Sodium (Porcine) (Heparin Vial(*)) 5,000 units SUBCUT Q8HR LIZA Insulin Human Lispro (Humalog*) 0 units SUBCUT ACHS LIZA; Protocol Morphine Sulfate (Morphine Vial*) 1 mg IV Q2H PRN Nortriptyline HCl (Pamelor Cap*) 10 mg PO BEDTIME LIZA Pantoprazole Sodium (Protonix Tab*) 40 mg PO DAILY LIZA Pramipexole Dihydrochloride (Mirapex Tab*) 1 mg PO 1200,1500,2100 LIZA Pregabalin (Lyrica Cap(*)) 100 mg PO Q8H [facility] Vital Signs: Temp Pulse Resp BP Pulse Ox 97.5 F 95 16 106/54 96 05/24/18 14:35 05/24/18 14:35 05/24/18 17:47 05/24/18 14:35 05/24/18 14:35 Oxygen Devices in Use Now: None Appearance: Pt is sitting in chair with b/l LE elevated. She appears well and in no acute distress. Eyes: No Scleral Icterus, PERRLA Ears/Nose/Mouth/Throat: NL Teeth, Lips, Gums, Clear Oropharnyx, Mucous Membranes Moist Neck: NL Appearance and Movements; NL JVP, Trachea Midline Respiratory: Symmetrical Chest Expansion and Respiratory Effort, Clear to Auscultation Cardiovascular: NL Sounds; No Murmurs; No JVD, RRR, No Edema Abdominal: NL Sounds; No Tenderness; No Distention, No Hepatosplenomegaly Extremities: No Clubbing, Cyanosis, - - b/l LE with 2+ pitting edema; erythema to LLE; TTP Skin: No Rash or Ulcers Neurological: Alert and Oriented x 3 Result Diagrams: 05/24/18 06:29 05/24/18 06:29 Microbiology and Other Data: Microbiology 05/22/18 03:25 Nasal Screen MRSA (PCR) - Final Nasal Mrsa Not Detected Assess/Plan/Problems-Billing Assessment: Pt is a 72yof with PMHx CAD, s/p CABG 04/15/2018, DM II, chronic hypoxic resp failure requiring 2L O2 at night, HTN, obesity, chronic pain, RLS, diabetic neuropathy who presents with SOB, LLE cellulitis at graft site. - Patient Problems (1) Cellulitis Comment: -Was on clindamycin as outpatient which will be continued -Consult ID re: [email or web address], as there is question whether abscess is healing with Keflex followed by Clinda -MRI LLE shows edema, cellulitis, no abscess (2) Hanna syndrome Comment: -Pleural effusion, mod pericardial effusion on echo with no hemodynamic compromise -appreciate dr ebnnett's input; will restart pts Losartan and add lopressor 25 BID (3) Acute on chronic diastolic (congestive) heart failure Comment: -EF around 50% on prior echo; pt with LE edema -Was on torsemide at home; on Bumex 2 mg iv bid and diuresing -No hemodynamic compromise from pericardial effusion -V/Q negative for PE -Monitor BP and vitals closely (4) VIRGIL (acute kidney injury) Comment: -Poss cardiorenal syndrome -Prior Cr 0.8 to 1.27 -Losartan currently on hold; restart when stable -Diuresis as above and follow renal fx (5) Troponin level elevated Comment: -Likely related to volume and demand ischemia -No sig ekg changes, no cp, s/p CABG 04/15/18 (6) CAD (coronary artery disease) Comment: -s/p CABG 04/15/18 (7) DVT prophylaxis Comment: -Heparin SQ (8) Full code status Status and Disposition: Inpatient. Discharge when stable.
[2018-05-24] MEDS: Nortriptyline CAP* 10 MG PO SCH (20:31)
[2018-05-24] MEDS: Metoprolol Tartrate TAB* 25 MG PO SCH (20:40)
[2018-05-24] MEDS ORDERED: Metoprolol Tartrate TAB* 25 MG PO SCH (21:00)
[2018-05-25] MEDS: Pregabalin CAP(*) 100 MG PO SCH ×3 (00:51→16:47)
[2018-05-25] MEDS: Heparin VIAL(*) 5000 UNITS/ML VIAL (FIVE THOUSAND) SUBCUT SCH ×3 (05:14→22:23)
[2018-05-25 07:17] LABS: BUN/Creatinine Ratio 28.1 (8-20); Calcium 9.4 mg/dL (8.6-10.3); EGFR African American 46.6 (>60); EGFR Non-African American 38.5 (>60); Potassium 3.3 mmol/L (3.5-5.0)
[2018-05-25] MEDS: Morphine 4 MG/ML VIAL (1 ml) 4 MG/ML VIAL IV PRN ×3 (07:18→22:18)
[2018-05-25 07:38] LABS: ABS Basophils 0.1 10^3/ul (0-0.2); ABS Eosinophils 0.4 10^3/ul (0-0.6); ABS Lymphocytes 4.9 10^3/ul (1.0-4.8); ABS Monocytes 0.9 10^3/ul (0-0.8); ABS Neutrophils 9.9 10^3/ul (1.5-7.7); ABS Nucleated RBC 0 10^3/ul; Eosinophil % 2.7 %; Hematocrit 32 % (33-41); Hemoglobin 10.3 g/dL (12.0-16.0); Mean Corpuscular HGB Conc 32 g/dL (31-36); Mean Corpuscular Hemoglobin 28 pg (27-31); Mean Corpuscular Volume 88 fL (80-97); Mean Platelet Volume 10.3 fL (7.4-10.4); Nucleated Red Blood Cells % 0.1; Platelet Count 198 10^3/uL (150-450); Red Blood Count 3.67 10^6 /uL (3.70-4.87); Red Cell Distribution Width 16 % (10.5-15); White Blood Count 16.3 10^3/uL (3.5-10.8)
[2018-05-25] MEDS: Docusate CAP* 100 MG PO SCH ×2 (08:05→20:50)
[2018-05-25] MEDS: Metoprolol Tartrate TAB* 25 MG PO SCH ×2 (08:06→20:12)
[2018-05-25] MEDS: Ascorbic Acid TAB* 500 MG PO SCH (08:06)
[2018-05-25] MEDS: Bumetanide IV* 0.25 MG/ML 4 ML VIAL SLOW PUSH SCH ×2 (08:06→20:51)
[2018-05-25] MEDS: Pantoprazole TAB * 40 MG TAB PO SCH (08:06)
[2018-05-25] MEDS: Aspirin EC TAB* 81 MG TAB.EC PO SCH (08:06)
[2018-05-25] MEDS: Losartan TAB* 25 MG PO SCH (08:06)
[2018-05-25] MEDS: Clindamycin CAP* 150 MG PO SCH ×3 (08:06→20:50)
[2018-05-25] MEDS: Insulin LISPRO* 1 UNITS UNIT SUBCUT SCH ×4 (08:08→20:51)
[2018-05-25] MEDS: Ferrous Sulfate TAB* 325 MG PO SCH (08:14)
[2018-05-25] MEDS: Potassium Chlor TAB* 20 MEQ TAB.ER PO SCH ×3 (08:52→13:30)
[2018-05-25] MEDS: Pramipexole TAB* 0.5 MG PO SCH ×3 (12:08→22:22)
--- NOTE | 2018-05-25 14:33 | CONS ---
CONSULTATION REPORT: DATE OF CONSULT: 05/25/18 REQUESTING PROVIDER: MARISA Riojas CONSULTING SERVICE: Infectious Disease. REASON FOR CONSULTATION: Left leg cellulitis. IMPRESSION: 1. Recent coronary artery bypass grafting and now a cellulitis and wound infection at the site of her left lower extremity vein harvest. It is improving on clindamycin. An MRI shows some underlying gastrocnemius myositis and no abscess. That may explain some of the persistence of her symptoms. She also had what sounds like severe peripheral edema, which is improving. Overall , her leg is much improved. 2. Nonhealing non-pressure related ulcer of left leg at the vein harvest site. 3. Coronary artery disease, status post coronary artery bypass grafting, April 2018. 4. Type 2 diabetes. RECOMMENDATIONS: I agree with oral clindamycin, we will plan on 5 more days as well as wound care, which I think will be the biggest thing as topical wound treatment to help this close up as well as attention to controlling her peripheral edema. HISTORY OF PRESENT ILLNESS: This is a 72-year-old woman who had a CABG in April 2018 at [facility]. She recovered uneventfully, but has had some increasing shortness of breath and bilateral leg swelling, so came into the hospital on 05/21/18. She also had been treated with oral clindamycin for cellulitis at the site of left leg vein graft harvest. White count when she got here was 9, it is 16.5 today. She has been afebrile throughout her stay. Swelling in her legs has much improved. The redness around her left leg harvest sites are both improved and nearly resolved. She is having some serous drainage. The pain has much improved. She has not had infection after other surgeries or one that required hospitalization in the past. She does have type 2 diabetes. She reports mediocre control recently. PAST MEDICAL HISTORY: 1. Type 2 diabetes. 2. Chronic hypoxic respiratory failure, 2 L supplemental oxygen at night. 3. Hypertension. 4. Obesity. 5. Coronary artery disease, status post CABG. 6. Chronic pain. 7. Restless leg syndrome. 8. Peripheral neuropathy. MEDICATIONS: 1. Albuterol inhaler. 2. Vitamin C. 3. Aspirin. 4. Bumex. 5. Clindamycin 300 mg by mouth 3 times a day. 6. Docusate. 7. Ferrous sulfate. 8. Heparin subcutaneous injection. 9. Insulin lispro. 10. Losartan. 11. Metoprolol. 12. Nortriptyline. 13. Pantoprazole. 14. Pregabalin. ALLERGIES: KEFLEX, GLUCOSAMINE, IBUPROFEN, IODINE, and METFORMIN. FAMILY HISTORY: No recurrent infections. SOCIAL HISTORY: She lives in senior housing. She is a nonsmoker, no alcohol. REVIEW OF SYSTEMS: All negative except as noted above in the history of present illness. PHYSICAL EXAM: Vital Signs: Temperature is 36, heart rate 100, respiratory rate 18, blood pressure 90/44, oxygen saturation 94% on 2 L via nasal cannula. In general, she is awake, not in distress. Neurologic: She is oriented x3. Follows all commands. HEENT: There is no conjunctival hemorrhage. Oropharynx without lesions. Neck is supple without mass. Heart has regular rate and rhythm without murmurs, rubs or gallops. Lungs are clear to auscultation bilaterally. Chest: Sternal incision has well healed. Abdomen: Soft, nontender, nondistended. There are bowel sounds present. Skin: There are no rashes or splinter hemorrhage. Musculoskeletal: There is no spinal tenderness to palpation. In the left lower leg medially there are 2 approximately 1.5 cm open areas with scant serous drainage and underlying fibrinous debris. No surrounding erythema. No tenderness or crepitus or fluctuance. DIAGNOSTIC STUDIES/LAB DATA: White blood cell count 16, hemoglobin 10, platelets 198, creatinine 1.3. Please see impressions and recommendations outlined above. Thank you for asking me to see Ms. Yo in consultation. [id number]/[facility] #: [id number] [facility] HOSPITALMarita
--- NOTE | 2018-05-25 17:19 | PN ---
Subjective Date of Service: 05/25/18 Interval History: Pt is doing well. She states that her leg feels better and erythema, swelling has gone down; still TTP. She denies CP, SOB, cough, fever, abd pain, n/v/d/c. She states that she has been ambulating. She is eating and drinking well. She is eager to go home. Objective Active Medications: Hydrocodone Bitart/Acetaminophen ([place] 5-325 Tab*) 1 tab PO Q4H PRN Al Hydrox/Mg Hydrox/Simethicone (Maalox Plus*) 30 ml PO Q6H PRN Albuterol (Ventolin 2.5 Mg/3 Ml Neb.Amy*) 2.5 mg INH [id number] AWAKE PRN Albuterol (Ventolin Hfa Inhaler*) 2 puff INH Q4H PRN Ascorbic Acid (Vitamin C Tab*) 500 mg PO DAILY LIZA Aspirin (Aspirin Ec Tab*) 81 mg PO DAILY LIZA Benzonatate (Tessalon Cap*) 100 mg PO BID PRN Bumetanide (Bumex*) 2 mg SLOW PUSH BID LIZA Clindamycin HCl (Cleocin Cap*) 300 mg PO TID LIZA Dextrose (D50w Syringe 50 Ml*) 12.5 gm IV PUSH .FOR FS < 60 - SS PRN Diclofenac Sodium (Voltaren 1% Gel (Nf)) 1 applic TOPICAL TID PRN; Protocol Docusate Sodium (Colace Cap*) 100 mg PO BEDTIME LIZA Docusate Sodium (Colace Cap*) 200 mg PO DAILY LIZA Ferrous Sulfate (Ferrous Sulfate Tab*) 325 mg PO DAILY LIZA Heparin Sodium (Porcine) (Heparin Vial(*)) 5,000 units SUBCUT Q8HR LIZA Insulin Human Lispro (Humalog*) 0 units SUBCUT ACHS LIZA; Protocol Losartan Potassium (Cozaar Tab*) 50 mg PO DAILY LIZA Metoprolol Tartrate (Lopressor Tab*) 25 mg PO BID LIZA Morphine Sulfate (Morphine Vial*) 1 mg IV Q2H PRN Nortriptyline HCl (Pamelor Cap*) 10 mg PO BEDTIME LIZA Pantoprazole Sodium (Protonix Tab*) 40 mg PO DAILY LIZA Pramipexole Dihydrochloride (Mirapex Tab*) 1 mg PO 1200,1500,2100 LIZA Pregabalin (Lyrica Cap(*)) 100 mg PO Q8H LIZA Vital Signs: Temp Pulse Resp BP Pulse Ox 97.4 F 71 18 96/54 93 05/25/18 15:51 05/25/18 15:51 05/25/18 16:47 05/25/18 15:54 05/25/18 15:51 Oxygen Devices in Use Now: None Appearance: Pt is sitting in chair resting with b/l LE elevated. She wakes to sound and is cooperative and appropriate. She appears well and in no acute distress. Eyes: No Scleral Icterus, PERRLA Ears/Nose/Mouth/Throat: NL Teeth, Lips, Gums, Clear Oropharnyx, Mucous Membranes Moist Neck: NL Appearance and Movements; NL JVP, Trachea Midline Respiratory: Symmetrical Chest Expansion and Respiratory Effort, Clear to Auscultation Cardiovascular: NL Sounds; No Murmurs; No JVD, RRR, No Edema Abdominal: NL Sounds; No Tenderness; No Distention, No Hepatosplenomegaly Extremities: No Clubbing, Cyanosis, - - B/l LE with edema. LLE without erythema. Two wounds with small amount of drainage and CDI dressing. Neurological: Alert and Oriented x 3 Result Diagrams: 05/25/18 06:22 05/25/18 06:22 Microbiology and Other Data: Microbiology 05/22/18 03:25 Nasal Screen MRSA (PCR) - Final Nasal Mrsa Not Detected Assess/Plan/Problems-Billing Assessment: Pt is a 72yof with PMHx CAD, s/p CABG 04/15/2018, DM II, chronic hypoxic resp failure requiring 2L O2 at night, HTN, obesity, chronic pain, RLS, diabetic neuropathy who presents with SOB, LLE cellulitis at graft site. - Patient Problems (1) Cellulitis Comment: -Was on clindamycin as outpatient which will be continued -Consult ID appreciated; will continue x5 more days, as recommended -MRI LLE shows edema, cellulitis, no abscess (2) Hanna syndrome Comment: -Pleural effusion, mod pericardial effusion on echo with no hemodynamic compromise -Appreciate dr bennett's input; will restart pts Losartan and add Lopressor 25 BID (3) Acute on chronic diastolic (congestive) heart failure Comment: -EF around 50% on prior echo; pt with LE edema -Was on torsemide at home; on Bumex 2 mg iv bid and diuresing -No hemodynamic compromise from pericardial effusion -V/Q negative for PE -Monitor BP and vitals closely (4) VIRGIL (acute kidney injury) Comment: -Poss cardiorenal syndrome -Prior Cr 0.8 to 1.35 -Diuresis as above and follow renal fx (5) Electrolyte abnormality Comment: -Repleted K -Recheck in a.m. (6) Troponin level elevated Comment: -Likely related to volume and demand ischemia -No sig ekg changes, no cp, s/p CABG 04/15/18 (7) CAD (coronary artery disease) Comment: -s/p CABG 04/15/18 (8) DVT prophylaxis Comment: -Heparin SQ (9) Full code status Status and Disposition: Inpatient. Discharge when stable.
[2018-05-25] MEDS: Nortriptyline CAP* 10 MG PO SCH (20:50)
--- NOTE | 2018-05-25 21:16 | PN ---
Hospitalist Progress Note Date of Service: 05/25/18 Elevated white count noted. Pt received multiple doses of prednisone on 05/23- in preparation for CT scan with contrast that wasn't performed. Leukocytosis likely a result of prednisone; pt is afebrile and has a chronic cough which has not changed and no other s/s infection. Will continue to monitor.
[2018-05-26] MEDS: Pregabalin CAP(*) 100 MG PO SCH ×2 (00:15→07:58)
[2018-05-26] MEDS: Heparin VIAL(*) 5000 UNITS/ML VIAL (FIVE THOUSAND) SUBCUT SCH ×2 (05:47→12:15)
[2018-05-26 07:19] LABS: ABS Basophils 0.2 10^3/ul (0-0.2); ABS Eosinophils 1.1 10^3/ul (0-0.6); ABS Lymphocytes 4.6 10^3/ul (1.0-4.8); ABS Monocytes 0.6 10^3/ul (0-0.8); ABS Neutrophils 5.4 10^3/ul (1.5-7.7); ABS Nucleated RBC 0 10^3/ul; Eosinophil % 8.9 %; Hematocrit 33 % (33-41); Hemoglobin 10.7 g/dL (12.0-16.0); Lymphocyte % 38.4 %; Mean Corpuscular HGB Conc 33 g/dL (31-36); Mean Corpuscular Hemoglobin 29 pg (27-31); Mean Corpuscular Volume 88 fL (80-97); Mean Platelet Volume 9.9 fL (7.4-10.4); Nucleated Red Blood Cells % 0.1; Platelet Count 186 10^3/uL (150-450); Red Blood Count 3.69 10^6 /uL (3.70-4.87); Red Cell Distribution Width 16 % (10.5-15); White Blood Count 11.9 10^3/uL (3.5-10.8)
[2018-05-26 07:38] LABS: Calcium 9.3 mg/dL (8.6-10.3); EGFR African American 44.7 (>60); Potassium 4.1 mmol/L (3.5-5.0)
[2018-05-26] MEDS: Losartan TAB* 25 MG PO SCH (07:54)
[2018-05-26] MEDS: Morphine 4 MG/ML VIAL (1 ml) 4 MG/ML VIAL IV PRN ×2 (07:55→12:16)
[2018-05-26] MEDS: Bumetanide IV* 0.25 MG/ML 4 ML VIAL SLOW PUSH SCH (07:55)
[2018-05-26] MEDS: Insulin LISPRO* 1 UNITS UNIT SUBCUT SCH ×2 (07:56→12:16)
[2018-05-26] MEDS: Docusate CAP* 100 MG PO SCH (07:57)
[2018-05-26] MEDS: Clindamycin CAP* 150 MG PO SCH ×2 (07:57→12:16)
[2018-05-26] MEDS: Aspirin EC TAB* 81 MG TAB.EC PO SCH (07:57)
[2018-05-26] MEDS: Pantoprazole TAB * 40 MG TAB PO SCH (07:57)
[2018-05-26] MEDS: Ascorbic Acid TAB* 500 MG PO SCH (07:58)
[2018-05-26] MEDS: Metoprolol Tartrate TAB* 25 MG PO SCH (08:00)
[2018-05-26] MEDS: Ferrous Sulfate TAB* 325 MG PO SCH (08:00)
[2018-05-26 08:12] VITALS: BP 113/62
[2018-05-26] MEDS: Pramipexole TAB* 0.5 MG PO SCH (12:16)
--- NOTE | 2018-05-26 23:12 | DS ---
CC: Carlos Hurst MD; Chavo Lyle MD; Polo Pope MD * DISCHARGE SUMMARY: DATE OF ADMISSION: 05/21/18 DATE OF DISCHARGE: 05/26/18 PRIMARY CARE PROVIDER: Carlos Hurst MD. INFECTIOUS DISEASE SPECIALIST: Chavo Lyle MD. CLIENT SERVICE SUPERVISOR: Polo Pope MD. ATTENDING PHYSICIAN: Dr. Mavis Figueroa * (dictated by MARISA Riojas). PRIMARY DIAGNOSES: 1. Hanna syndrome. 2. Acute on chronic congestive heart failure. 3. Cellulitis. SECONDARY DIAGNOSES: 1. Diabetes mellitus type 2. 2. Chronic hypoxic respiratory failure requiring 2 L of oxygen at night. 3. Hypertension. 4. Obesity. 5. Chronic pain syndrome. 6. Restless leg syndrome. 7. Diabetic neuropathy. STUDIES WHILE IN THE HOSPITAL: 1. Chest x-ray 05/21/18, impression: Increased airspace opacification of the right lower lobe, status post recent midline sternotomy and CABG with stable cardiomediastinal silhouette, interstitial pulmonary edema, similar moderate left pleural effusion. 2. Venous Doppler ultrasound, left leg, 05/21/18. Impression: No evidence of DVT within visualized veins, distal left femoral vein and left popliteal veins not visualized secondary to marked swelling and patient pain level during examination, diffuse subcutaneous edema. 3. Transthoracic echocardiogram, 05/22/18, conclusion: Moderate concentric left ventricular hypertrophy is observed. Global left ventricular wall motion and contractility are within normal limits. There is normal left ventricular systolic function. The estimated ejection fraction is 55% to 60%. Ventricular septal wall motion has a postoperative appearance. The right ventricular chamber size and systolic function are within normal limits. There is no evidence of aortic regurgitation. There is borderline aortic stenosis present. The mean gradient of the aortic valve is 9 mmHg. There is no evidence of mitral regurgitation. There is no evidence of tricuspid valve regurgitation. Unable to estimate the right ventricular systolic pressure. There is a small pericardial effusion, small to moderate, appears loculated to the apical and inferior region. No evidence of tamponade. Compared to study of 04/28/18, prior to CABG, the LV function has improved, was 45%. The valve structures are the same. Pericardial effusion is new. 4. Chest x-ray, 05/24/18, impression: Moderate left pleural effusion with left basilar atelectasis versus consolidation. 5. V/Q lung scan, 05/24/18, impression: Cardiomegaly with left pleural effusion, photopenia in the left lung base; otherwise, no evidence of perfusion defects to suggest pulmonary embolism is noted. 6. Lower extremity MRI, 05/24/18. Impression: In correct clinical context the constellation of findings at the left lower leg is consistent with the presence of cellulitis and probable associated myositis at the gastrocnemius musculature. No superficial or deep abscess collection evident. Given extensive subcutaneous edema at the contralateral lower leg, the component of dependant edema related to cardiac or other systemic disease is suspected. DISCHARGE MEDICATIONS: Home medications: 1. Docusate sodium 200 mg p.o. daily. 2. Diclofenac 1% gel apply topically t.i.d. p.r.n. 3. Aspirin 81 mg p.o. daily. 4. Meclizine 25 mg p.o. t.i.d. p.r.n. 5. Albuterol HFA inhaler 2 puffs inhalation q. 4 hours p.r.n. 6. Glipizide 20 mg p.o. daily. 7. Hydrocodone/acetaminophen 1 to 2 tabs p.o. q.4 hours p.r.n. 8. Pioglitazone 45 mg p.o. daily. 9. Omeprazole 20 mg p.o. daily. 10. Nortriptyline 10 mg p.o. at bedtime. 11. Mirapex 1 mg p.o. t.i.d. 12. Pregabalin 100 mg p.o. q.8 hours. New home medications: 1. Metoprolol tartrate 25 mg p.o. b.i.d. 2. Clindamycin 300 mg p.o. t.i.d. x4 days. 3. Bumex 2 mg p.o. daily. Changed home medications: Losartan 25 mg p.o. daily. HISTORY OF PRESENT ILLNESS/HOSPITAL COURSE: Ms. Yo is a 72-year-old female with a past medical history of coronary artery disease, status post CABG at [facility]. She presented to the ER on 05/21/18 with complaints of progressive shortness of breath. She states that this has been progressing for approximately 1 month. She was seen by Dr. Pope, Cardiology approximately 1 week prior and was noted to have a 20-pound weight gain. She was started on torsemide 40 for this. She noted that along with the weight gain, she was requiring 2 L of oxygen during the day; previously she only used it at night. She also complained of bilateral lower extremity edema. It is noted that the patient has 2 graft incision sites on the left lower extremity. She has a productive cough. In the ER, she received a full workup. She was noted to have elevated troponins. She was noted to also have left lower extremity cellulitis at her graft site. A Doppler ultrasound was negative for DVT. In the setting of shortness of breath and elevated D-dimer, a workup for pulmonary embolism was indicated. The patient was admitted by the hospitalist group. In the hospital, the patient received an echocardiogram, which revealed an improved ejection fraction from prior to her CABG. Elevated troponins are likely due to demand ischemia. The left lower extremity cellulitis was monitored throughout her stay. It has slowly improved on clindamycin, which the patient was receiving outpatient and was continued throughout her stay. Infectious Disease was consulted and recommended continuation of clindamycin with follow up with Infectious Disease. The wound was managed with dressing changes every other day. The patient will have visiting nursing services to help with dressing changes at home. The patient continued to have shortness of breath, which was likely a result of either exacerbation of heart failure, or pulmonary embolism. The patient was started on Bumex 2 mg IV b.i.d. for diuresis. Torsemide was discontinued. It was noted that the patient has a IODINE CONTRAST allergy, so a V/Q scan was ordered, which revealed no pulmonary embolism. Throughout the patient stay, her lower extremity edema and shortness of breath improved to where she no longer required oxygen. It was noted on echocardiogram that the patient had a moderate pericardial effusion. Cardiology was consulted for this as well as exacerbation of heart failure and elevated troponins in the setting of status post CABG. The patient was noted to have both pleural and pericardial effusion. They were stable and did not lead to hemodynamic compromise. On the day of discharge, the patient denies chest pain or shortness of breath. She complains of a cough, which she has had for approximately 1 month now since her surgery; she noted the cough had not changed since she developed it 1 month ago. She denies fever. She denies change in cough. She denies abdominal pain, nausea, vomiting, diarrhea, constipation or pain in the calves. She does have left leg pain. It is noted that she has a history of neuropathy as well as restless leg syndrome. The graft site is slightly painful, but improved with decrease in cellulitis. It is also noted that the patient is slightly hypotensive after restarting her home Losartan 50 mg and initiation of metoprolol 25 mg BID. She denies dizziness, lightheadedness, and syncope with hypotension. This was discussed with Dr. Pope, who recommended decreasing Losartan to 25 mg per day. Ms. Yo is stable for discharge. PHYSICAL EXAMINATION: Vitals Sings: Temperature 97.3 temporally, heart rate 77 , respiratory rate 17, oxygen saturation 93% on room air, and blood pressure 113 /62. General: Ms. oY is a well-developed, well-nourished, obese older woman who is sitting in a reclining chair with her lower extremities elevated. She appears well and in no acute distress. HEENT: Visual castro are grossly intact. The pupils are equally round and reactive to light. Extraocular movements are intact. Sclerae are without icterus. Hearing is grossly intact. Oral mucous membranes are moist and without lesion. Pharynx is clear. Neck with full range of motion. Thyroid not palpable. Trachea is at midline. There is no lymphadenopathy. Cardiovascular: Regular rate and rhythm with S1 and S2 present. There are no murmurs, rubs, or gallops. There is no JVD. Respiratory : Symmetrical chest expansion but no use of accessory muscles. The lungs are clear to auscultation. There is no rhonchi, wheezes, or rubs. Abdomen: Abdomen is obese. Bowel sounds in all quadrants. It is soft and nontender to palpation. There is no hepatosplenomegaly. Extremities: Skin is warm and smooth bilaterally. No clubbing or cyanosis. Radial and pedal pulses are palpable. Bilateral lower extremities with edema. The left lower extremity has 2 wounds from graft for CABG. There is no erythema or warmth. It is slightly tender to palpation. Neuro: The patient is awake. She is alert and oriented x3. She is able to move all of her extremities. DISCHARGE PLAN: Ms. Yo will be discharged to home. ACTIVITY: As tolerated. DIET: Heart healthy. MEDICATIONS: As above. EDUCATION: 1. Losartan dose decreased to 25 mg daily, monitor blood pressure. 2. Continue clindamycin 3 times daily for 5 days. Next dose is 9 p.m. tonight. Continue Bumex medication and discontinue all other home diuretics. 3. Follow up with Dr. Pope on Thursday as scheduled. 4. Follow up with primary care physician in 4 to 7 days. 5. Follow up with Dr. Lyle as scheduled. His office will call with appointment time. 6. VNS will continue to come to house for dressing changes. 7. Return to the ER or nearest hospital if you experience any worsening of symptoms, shortness of breath, lightheadedness, dizziness, chest discomfort, high fevers, chills, night sweats, loss of consciousness or any other worrisome signs or symptoms. This is a summarized report of a complex medical history and hospital stay. For further details, please see the entire medical record. TIME SPENT: Approximately 40 minutes were spent on this discharge; greater than half of that time was spent [id number] with the patient discussing discharge plans and instructions. MARISA GARCIA [id number]/[facility] #: [id number] RITA
[2018-05-27] MEDS ORDERED: Losartan TAB* 25 MG PO SCH (09:00)
== END 2018-05-26 14:45 | disposition home health service (06) | DRG 314 ==
LOC: ED 18:34 → MEDTELE 23:18
PROVIDERS: ADMIT Internal Medicine; ATTEND Internal Medicine
DX: I24.1 Dressler's syndrome (principal); I50.33 Acute on chronic diastolic (congestive) heart failure; I13.0 Hypertensive heart and chronic kidney disease with heart failure and stage 1 through stage 4 chronic kidney disease, or unspecified chronic kidney disease; J96.11 Chronic respiratory failure with hypoxia; L03.116 Cellulitis of left lower limb; L97.929 Non-pressure chronic ulcer of unspecified part of left lower leg with unspecified severity; N17.9 Acute kidney failure, unspecified; T82.7XXA Infection and inflammatory reaction due to other cardiac and vascular devices, implants and grafts, initial encounter; I24.8 Other forms of acute ischemic heart disease; E78.00 Pure hypercholesterolemia, unspecified; G47.30 Sleep apnea, unspecified; K21.9 Gastro-esophageal reflux disease without esophagitis; M60.862 Other myositis, left lower leg; M19.90 Unspecified osteoarthritis, unspecified site; M79.7 Fibromyalgia; E66.9 Obesity, unspecified; G89.4 Chronic pain syndrome; E11.22 Type 2 diabetes mellitus with diabetic chronic kidney disease; G25.81 Restless legs syndrome; E11.42 Type 2 diabetes mellitus with diabetic polyneuropathy; N18.9 Chronic kidney disease, unspecified; F17.210 Nicotine dependence, cigarettes, uncomplicated; F32.9 Major depressive disorder, single episode, unspecified; F41.0 Panic disorder [episodic paroxysmal anxiety]; Y71.3 Surgical instruments, materials and cardiovascular devices (including sutures) associated with adverse incidents; G56.02 Carpal tunnel syndrome, left upper limb; I25.10 Atherosclerotic heart disease of native coronary artery without angina pectoris; Z88.8 Allergy status to other drugs, medicaments and biological substances; Z88.6 Allergy status to analgesic agent; Z88.1 Allergy status to other antibiotic agents; Z91.013 Allergy to seafood; Z85.828 Personal history of other malignant neoplasm of skin; Z90.710 Acquired absence of both cervix and uterus; Z98.51 Tubal ligation status; Z68.37 Body mass index [BMI] 37.0-37.9, adult; Z95.1 Presence of aortocoronary bypass graft; Z79.82 Long term (current) use of aspirin; Z79.84 Long term (current) use of oral hypoglycemic drugs; Y92.9 Unspecified place or not applicable
CPT/HCPCS: 36415; 71046; 78582; 80048; 80053; 81003; 82947; 83605; 84300; 84484; 85025; 85379; 87040; 87641; 93005; 93306; 99285; A9270-GY; A9540; A9558; J1644; J1940; J2270; J7512

== ENCOUNTER 2018-08-02 17:44 | Inpatient (IN) | payer MEDICARE ==
--- OUTSIDE RECORDS SUMMARY | 2018-08-02 18:04 | XMS REPORT | Continuity of Care Document ---
:1945 External Reference #:[id number] Author Name Madeleine Sheets Care Team Providers Name Role Phone Carlos Hurst MD Primary Care Physician Unavailable Payers Date Identification Numbers Payment Provider Subscriber Policy Number: [id number] [facility] Todays Options Lily Yo PayID: [id number] [address] [address] Attn: [place] [address] Advance Directives Description No Information Available Problems [...] (more than 10 cigarettes/day) Smoking Status Reviewed: 07/07/18 Heavy tobacco smoker (more than 10 cigarettes/day) Exercise Type/Frequency Does not exercise Allergies, Adverse Reactions, Alerts Active Allergies Reaction Severity Comments Date Glucosamine 05/12/2018 Iodine 05/12/2018 Keflex 05/12/2018 Metformin 05/12/2018 Motrin 05/12/2018 Requip 05/12/2018 Rofecoxib 05/12/2018 Medications Active Medications SIG Qnty Indications Ordering Date Provider Bumetanide 1 tab by mouth once Abbey Wolfe, 05/28/2018 2mg Tablets a day N.P. Carlos Laboy, 10mg Tablets Meclizine HCL 1 tab by mouth Unknown 25mg three times a day Chewtabs as needed Colace 2 tab every 12 Unknown 100mg Capsules hours as needed for constipation Clindamycin HCL 1 by mouth three Unknown 300mg times a day Capsules Losartan Potassium 1 by mouth every Unknown 25mg day Tablets Metoprolol Succinate 1 po bid Unknown ER 25mg Tablets ER 24HR Hydrocodone-Acetaminop 1-2 tablet po every Carlos Hurst, hen four hours as 10-325mg Tablets needed Glipizide ER 2 tablet po daily Carlos Hurst, 10mg Tablets MD ER 24HR Diclofenac Sodium as needed Carlos Hurst, 1% Gel Atorvastatin Calcium 1 tablet po daily Unknown 40mg Tablets Aspirin 1 by mouth every Unknown 81mg Tablets DR day Ventolin HFA 2 puffs by mouth Unknown 108(90Base) four times a day as mcg/Act Aerosol needed Pregabalin 100mg 1 cap po Unknown every 8 hours Pramipexole 1 tab po tid Unknown Dihydrochloride 1mg Tablets Pioglitazone HCL 1 by mouth every Unknown 45mg day Tablets Omeprazole 2 by mouth every 90caps Unknown 10mg Capsules day DR Nortriptyline HCL 1 by mouth every Unknown 10mg day Capsules History Medications Pramipexole Dihydrochloride 1 po at bedtime Unknown - 0.5mg 05/26/2018 Tablets Sulfamethoxazole/Trimethopr 1 po twice daily Carlos Hurst, - im DS x 7 days 05/26/2018 800-160mg Tablets completed 05/218 Hydrochlorothiazide Take One Tablet Unknown - 25mg Tablets By Mouth Every 05/26/2018 Day Losartan Potassium 1 po daily Carlos Hurst, - 100mg Tablets 05/27/2018 Torsemide take 3 tablet by 90tabs Polo Haney - 10mg Tablets mouth every day Keyanna Pope 05/26/2018 Immunizations Description No Information Available Vital Signs Date Vital Result Comment 07/07/2018 10:47am Height 67 inches 5'7" Weight 232.00 lb with shoes Heart Rate 70 /min BP Systolic Sitting 138 mmHg Lue Lg cuff BP Diastolic Sitting 70 mmHg Lue Lg cuff Respiratory Rate 16 /min BMI (Body Mass Index) 36.3 kg/m2 05/28/2018 10:42am Height 67 inches 5'7" Weight 229.00 lb Heart Rate 66 /min BP Systolic Sitting 100 mmHg lue laRGE Cuff BP Diastolic Sitting 60 mmHg lue laRGE Cuff BP Systolic Standing 94 mmHg lue laRGE Cuff BP Diastolic Standing 60 mmHg lue laRGE Cuff Respiratory Rate 12 /min BMI (Body Mass Index) 35.9 kg/m2 Ejection Fraction 55-60% ECHO 05/23/18 05/12/2018 4:29pm Weight 247.00 lb with shoes Heart Rate 80 /min BP Systolic Sitting 120 mmHg Lue lg cuff BP Diastolic Sitting 62 mmHg Lue lg cuff BP Systolic Standing 120 mmHg Lue lg cuff BP Diastolic Standing 64 mmHg Lue lg cuff Respiratory Rate 16 /min Ejection Fraction 45-50% date 04/17/18 ECHO Results Test Date Facility Test Result H/L Range Note CBC Auto Diff 05/31/2018 [facility] White Blood 11.5 10^3/uL High 3.5-10.[address] [place] [address] [phone] Red Blood Count 3.54 10^6/uL Low 3.70-4.87 Hemoglobin 10.1 g/dL Low 12.0-16.0 Hematocrit 32 % Low 33-41 Mean Corpuscular Volume 89 fL N 80-97 Mean Corpuscular Hemoglobin 29 pg N 27-31 Mean Corpuscular HGB Conc 32 g/dL N 31-36 Red Cell Distribution Width 16 % High 10.5-15 Platelet Count 204 10^3/uL N 150-450 Mean Platelet Volume 10.5 fL High 7.4-10.4 Abs Neutrophils 6.7 10^3/uL N 1.5-7.7 Abs Lymphocytes 2.6 10^3/uL N 1.0-4.8 Abs Monocytes 0.9 10^3/uL High 0-0.8 Abs Eosinophils 1.1 10^3/uL High 0-0.6 Abs Basophils 0.1 10^3/uL N 0-0.2 Abs Nucleated RBC 0 10^3/uL Granulocyte % 58.3 % Lymphocyte % 22.9 % Monocyte % 7.7 % Eosinophil % 9.8 % Basophil % 1.3 % Nucleated Red Blood Cells % 0 Basic Metabolic Panel 05/31/2018 [facility] Sodium 137 mmol/L N 135-145 [address] [place] [address] [phone] Potassium 4.5 mmol/L N 3.5-5.0 Chloride 97 mmol/L Low 101-111 Co2 Carbon Dioxide 27 mmol/L N 22-32 Anion Gap 13 mmol/L High 2-11 Glucose 233 mg/dL High 70-100 Blood Urea Nitrogen 27 mg/dL High 6-24 Creatinine 1.07 mg/dL High 0.51-0.95 BUN/Creatinine Ratio 25.2 High 8-20 Calcium 9.3 mg/dL N 8.6-10.3 Egfr Non- 50.4 >60 Egfr 61.0 >60 1 Laboratory test 05/31/2018 [facility] Magnesium 2.0 mg/dL N 1.9-2.7 finding [address] [place] [address] [phone] B-Type Natriuretic Peptide BNP 83 pg/mL <=100 CBC No Diff 05/17/2018 [facility] White Blood 10.3 10^3/uL N 3.5-10.[address] [place] [address] [phone] Red Blood Count 3.09 10^6/uL Low 4.00-5.40 Hemoglobin 9.0 g/dL Low 12.0-16.0 Hematocrit 28 % Low 35-47 Mean Corpuscular Volume 91 fL N 80-97 Mean Corpuscular Hemoglobin 29 pg N 27-31 Mean Corpuscular HGB Conc 32 g/dL N 31-36 Red Cell Distribution Width 16 % High 10.5-15 Platelet Count 165 10^3/uL N 150-450 Mean Platelet Volume 10.7 fL High 7.4-10.4 Basic Metabolic Panel 05/17/2018 [facility] Sodium 136 mmol/L N 135-145 [address] [place] [address] [phone] Potassium 4.4 mmol/L N 3.5-5.0 Chloride 97 mmol/L Low 101-111 Co2 Carbon Dioxide 29 mmol/L N 22-32 Anion Gap 10 mmol/L N 2-11 Glucose 213 mg/dL High 70-100 Blood Urea Nitrogen 46 mg/dL High 6-24 Creatinine 1.96 mg/dL High 0.51-0.95 BUN/Creatinine Ratio 23.5 High 8-20 Calcium 8.5 mg/dL Low 8.6-10.3 Egfr Non- 25.1 >60 Egfr 30.3 >60 2 1 Because ethnic data is not always readily available, this report includes an eGFR for both -Americans and non- Americans. The National Kidney Disease Education Program (NKDEP) does not endorse the use of the MDRD equation for patients that are not between the ages of 18 and 70, are , have extremes of body size, muscle mass, or nutritional status, or are non- or non-. According to the National Kidney Foundation, irrespective of diagnosis, the stage of the disease is based on the level of kidney function: Stage Description GFR(mL/min/1.73 m(2)) 1 Kidney damage with normal or decreased GFR 90 2 Kidney damage with mild decrease in GFR 60-89 3 Moderate decrease in GFR 30-59 4 Severe decrease in GFR 15-29 5 Kidney failure <15 (or dialysis) 2 Because ethnic data is not always readily available, this report includes an eGFR for both -Americans and non- Americans. The National Kidney Disease Education Program (NKDEP) does not endorse the use of the MDRD equation for patients that are not between the ages of 18 and 70, are , have extremes of body size, muscle mass, or nutritional status, or are non- or non-. According to the National Kidney Foundation, irrespective of diagnosis, the stage of the disease is based on the level of kidney function: Stage Description GFR(mL/min/1.73 m(2)) 1 Kidney damage with normal or decreased GFR 90 2 Kidney damage with mild decrease in GFR 60-89 3 Moderate decrease in GFR 30-59 4 Severe decrease in GFR 15-29 5 Kidney failure <15 (or dialysis) Procedures Date Code Description Status 05/28/2018 05285 EKG Tracing & Interpretation Completed 05/23/2018 03801 ECHO Transthorasic Realtime 2D W Doppler & Color Flow Hosp Completed 05/12/2018 88797 EKG Tracing & Interpretation Completed 04/13/2018 63875 Cath PLMT&NJX L Ventriculog Img S&I Completed 04/12/2018 15433 ECHO Transthorasic Realtime 2D W Doppler & Color Flow Hosp Completed 04/12/2018 08425 Treadmill Interp/Report Only Completed 04/12/2018 30238 Stress Test Supervsn W/Out I/R Completed 04/11/2018 63052 EKG, Interpretation Only Completed Encounters Type Date Location Provider Dx Diagnosis Office Visit 05/28/2018 [facility] Abbey CarmenMaris Aiden, J90 Pleural effusion, 10:30a Of [employer] N.P. 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 L03.116 Cellulitis of left lower limb Office Visit 05/25/2018 [facility] Chavo Haney T81.42xA Infct fol a 10:47a For Infectious Keyanna Villagran procedure, deep Diseases incisional surgical site, init L03.116 Cellulitis of left lower limb M60.062 Infective myositis, left lower leg Office Visit 05/25/2018 [facility] L03.116 Cellulitis of 10:04a nicholas Hughes PA left lower limb Hospitalists 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 I50.33 Acute on chronic diastolic (congestive) heart failure N17.9 Acute kidney failure, unspecified R74.8 Abnormal levels of other serum enzymes E87.8 Oth disorders of electrolyte and fluid balance, NEC I25.10 [place]scl heart disease of [place] coronary artery w/o ang pctrs Office Visit 05/24/2018 [facility] L03.116 Cellulitis of 10:04a nicholas Hughes PA left lower limb Hospitalists 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 unspecified L03.116 Cellulitis of left lower limb I25.10 Athscl heart disease of [place] coronary artery w/o ang pctrs I48.91 Unspecified atrial fibrillation Office Visit 05/23/2018 [facility] I24.1 Hanna's 1:52p Assoc,nicholas Mendoza MD syndrome Hospitalists I25.10 Athscl heart disease of [place] coronary artery w/o ang pctrs R74.8 Abnormal levels of other serum enzymes L03.90 Cellulitis, unspecified N17.9 Acute kidney failure, unspecified Office Visit 05/23/2018 12:27p [facility] Polo Haney J90 Pleural effusion, Of Ld Pope M.D. not elsewhere classified I31.3 Pericardial effusion (noninflammatory) R60.0 Localized edema I25.10 Athscl heart disease of [place] coronary artery w/o ang pctrs Z95.1 Presence of aortocoronary bypass graft I50.9 Heart failure, unspecified Office Visit 05/22/2018 [facility] I50.33 Acute on chronic 1:52p Assoc,nicholas Mendoza MD diastolic Hospitalists (congestive) heart failure I25.10 Athscl heart disease of [place] coronary artery w/o ang pctrs R74.8 Abnormal levels of other serum enzymes L03.90 Cellulitis, unspecified N17.9 Acute kidney failure, unspecified Office Visit 05/21/2018 [facility] I50.33 Acute on chronic 10:03a Assoc,nicholas Wang DO diastolic Hospitalists (congestive) heart failure I11.0 Hypertensive heart disease with heart failure L03.116 Cellulitis of left lower limb E87.70 Fluid overload, unspecified Office Visit 05/12/2018 4:00p [facility] Polo Haney I25.110 Athscl heart Of [place] Pope M.D. disease of [place] cor art w unstable ang pctrs I10 Essential (primary) hypertension R60.0 Localized edema Z95.1 Presence of aortocoronary bypass graft Office Visit 04/13/2018 [facility] I25.110 Athscl heart 9:45a Assoc,pc MARISA Oliva disease of Hospitalists [place] cor art w unstable ang pctrs I10 Essential (primary) hypertension Office Visit 04/12/2018 3:08p [facility] Polo Haney R07.9 Chest pain, Of [facility] Keyanna Pope unspecified I25.110 Athscl heart disease of [place] cor art w unstable ang pctrs Office Visit 04/11/2018 9:43a [facility] Idania Monae, R07.9 Chest pain , Assoc,pc N.P. unspecified Hospitalists R06.02 Shortness of breath I10 Essential (primary) hypertension E11.9 Type 2 diabetes mellitus without complications Plan of Treatment Future Appointment(s):11/12/2018 10:30 am - Polo Pope M.D. at [facility]07/07/2018 - Polo Pope M.D.R94.31 Abnormal electrocardiogram [ECG] [EKG]Follow up:4 dgynadO67.10 Atherosclerotic heart disease of [place] coronary artery withI10 Essential (primary) hypertension
[2018-08-02] MEDS ORDERED: Vancomycin(*) 1,000 MG in NS 0.9% 250 ML* 250 ML IVPB ONE (19:02)
[2018-08-02] MEDS ORDERED: Piperacillin/Tazobac ADVAN(*) 3.375 GM in NS 0.9% 100 ML* 100 ML IVPB ONE (19:03)
[2018-08-02] MEDS ORDERED: NS 0.9% 1000 ML** 1,000 ML IV ONE (19:04)
[2018-08-02 19:34] LABS: INR 1.01 (0.82-1.09)
[2018-08-02 19:44] LABS: ABS Basophils 0.1 10^3/ul (0-0.2); ABS Eosinophils 0.6 10^3/ul (0-0.6); ABS Lymphocytes 1.5 10^3/ul (1.0-4.8); ABS Monocytes 0.6 10^3/ul (0-0.8); ABS Neutrophils 8.5 10^3/ul (1.5-7.7); Albumin 4.2 g/dL (3.2-5.2); Albumin/Globulin Ratio 1.1 (1-3); BUN/Creatinine Ratio 30.2 (8-20); C Reactive Protein 43.27 mg/L (<8.01); Calcium 9.8 mg/dL (8.6-10.3); EGFR African American 55.6 (>60); EGFR Non-African American 45.9 (>60); Eosinophil % 5.4 %; Globulin 3.8 g/dL (2-4); Hematocrit 32 % (35-47); Hemoglobin 10.4 g/dL (12.0-16.0); Lymphocyte % 13.2 %; Mean Corpuscular HGB Conc 32 g/dL (31-36); Mean Corpuscular Hemoglobin 28 pg (27-31); Mean Corpuscular Volume 87 fL (80-97); Mean Platelet Volume 9.5 fL (7.4-10.4); Nucleated Red Blood Cells % 0.1; Platelet Count 184 10^3/uL (150-450); Potassium 3.6 mmol/L (3.5-5.0); Red Blood Count 3.72 10^6 /uL (3.70-4.87); Red Cell Distribution Width 17 % (10.5-15); Total Bilirubin 0.4 mg/dL (0.2-1.0); White Blood Count 11.3 10^3/uL (3.5-10.8)
[2018-08-02] MEDS ORDERED: Ondansetron INJ* 2 MG/ML VIAL IV ONE (19:50)
[2018-08-02] MEDS ORDERED: Morphine 4 MG/ML VIAL (1 ml) 4 MG/ML VIAL IV ONE ×2 (19:50→20:41)
[2018-08-02] MEDS ORDERED: Pregabalin CAP(*) 100 MG PO ONE (19:51)
[2018-08-02] MEDS ORDERED: Pramipexole TAB* 0.5 MG PO ONE (20:42)
[2018-08-02] MEDS ORDERED: Iodixanol* (CONTRAST) 320 MG/ML 100 ML SDV IV ONE (21:29)
--- NOTE | 2018-08-02 21:31 | ED ---
Lower Extremity - HPI Summary HPI Summary: Patient presents for worsening chronic wounds to left leg. Patient has seen wound care once, has a nurse come out every other day to attend to wounds. Patient states wounds are dramatically larger and deeper with new tissue ulceration in the past 2 days, with foul odor and discharge. Patient has been on Bactrim twice a day 2 months, started on clindamycin yesterday. Denies fever, cough, sore throat, CP, SOB, N/V/D, abdominal pain, change in urine, change in BM. Medical history is DM, CABG, fibromyalgia. Wounds are status post vein harvesting during CABG on and 09/24. Surgeon Dr. Bennett at [facility] - History of Current Complaint Chief Complaint: EDExtremityLower Stated Complaint: LT LEG INFECTION PER PT Time Seen by Provider: 08/02/18 18:01 Hx Obtained From: Patient Mechanism Of Injury: Unknown Onset/Duration: Weeks Severity Initially: Mild Severity Currently: Severe Pain Intensity: 9 Pain Scale Used: 0-10 Numeric Timing: Constant Location: Is Discrete @ Character Of Pain: Aching, Throbbing Associated Signs And Symptoms: Positive: Swelling, Redness Alleviating Factor(s): Nothing Able to Bear Weight: No - Allergies/Home Medications Allergies/Adverse Reactions: Allergies Allergy/AdvReac Type Severity Reaction Status Date / Time cephalexin [From Keflex] Allergy Rash Verified 08/02/18 17:54 Iodinated Contrast- Oral and Allergy Hives Verified 08/02/18 21:44 IV Dye rofecoxib Allergy Unknown Verified 08/02/18 17:54 Reaction Details glucosamine AdvReac Swelling Verified 08/03/18 03:10 ibuprofen AdvReac Vomiting Verified 08/03/18 03:10 metformin AdvReac Diarrhea Verified 08/03/18 03:10 ropinirole [From Requip] AdvReac Dizziness Verified 08/03/18 03:10 Home Medications: Home Medications Atorvastatin* [Lipitor*] 40 mg PO DAILY 08/02/18 [History Confirmed 08/02/18] Empagliflozin [Jardiance] 10 mg PO DAILY 08/02/18 [History Confirmed 08/02/18] Hydrocodone/Acetaminophen [Hydrocodone-Acetamin 10-325 mg] 1 - 2 tab PO Q4H PRN 08/02/18 [History Confirmed 08/02/18] Metoprolol Tartrate TAB* [Lopressor TAB*] 12.5 mg PO DAILY 08/02/18 [History Confirmed 08/02/18] glipiZIDE [Glipizide ER] 20 mg PO DAILY 08/02/18 [History Confirmed 08/02/18] PMH/Surg Hx/FS Hx/Imm Hx Endocrine/Hematology History: Reports: Hx Diabetes Cardiovascular History: Reports: Hx Angina, Hx Hypercholesterolemia, Hx Hypertension Denies: Hx Pacemaker/ICD Respiratory History: Reports: Hx Sleep Apnea GI History: Reports: Hx Gastroesophageal Reflux Disease, Hx Ulcer - Stomach Musculoskeletal History: Reports: Hx Arthritis, Hx Back Problems, Hx Fibromyalgia, Other Musculoskeletal History - Carpal Tunnel Left Wrist; Bilateral Knee Pain Sensory History: Reports: Hx Contacts or Glasses Denies: Hx Hearing Aid Opthamlomology History: Reports: Hx Contacts or Glasses Neurological History: Reports: Other Neuro Impairments/Disorders - Peripheral Neuropathy; Restless Leg Syndrome Psychiatric History: Reports: Hx Anxiety, Hx Depression, Other Psychiatric Issues/Disorders - Insomnia Denies: Hx Panic Disorder - Cancer History Cancer Type, Location and Year: Squamous Cell Cancer - Surgical History Surgery Procedure, Year, and Place: [facility], 04/15/18- HYSTER, SHOULDER Infectious Disease History: No Infectious Disease History: Denies: Traveled Outside the [place] in Last 30 Days - Family History Known Family History: Positive: Diabetes - Social History Alcohol Use: None Hx Substance Use: Yes Substance Use Type: Reports: Prescribed Smoking Status (MU): Former Smoker Type: Cigarettes Amount Used/How Often: 1-2 per day Have You Smoked in the Last Year: No Review of Systems Constitutional: Negative Eyes: Negative ENT: Negative Cardiovascular: Negative Respiratory: Negative Gastrointestinal: Negative Genitourinary: Negative Musculoskeletal: Negative Skin: Other Neurological: Negative Psychological: Normal All Other Systems Reviewed And Are Negative: Yes Physical Exam - Summary Physical Exam Summary: Two ulcers. One located just distal to left knee on medial lower extremity. Second located 6 inches more distally on medial side of left lower extremity. No foul odor noted. Some ulceration of tissue between 2 ulcers. Localized erythema. PMS intact distally. Triage Information Reviewed: Yes Vital Signs On Initial Exam: Initial Vitals Temp Pulse Resp BP Pulse Ox 98.3 F 89 17 152/66 95 08/02/18 17:49 08/02/18 17:49 08/02/18 17:49 08/02/18 17:49 08/02/18 17:49 Vital Signs Reviewed: Yes Appearance: Positive: Well-Appearing Skin: Positive: Warm Head/Face: Positive: Normal Head/Face Inspection Eyes: Positive: Normal Neck: Positive: Supple Respiratory/Lung Sounds: Positive: Clear to Auscultation Cardiovascular: Positive: Normal Abdomen Description: Positive: Nontender Musculoskeletal: Positive: Normal Neurological: Positive: Normal Psychiatric: Positive: Normal AVPU Assessment: Alert - Jonathon Coma Scale Best Eye Response: 4 - Spontaneous Best Motor Response: 6 - Obeys Commands Best Verbal Response: 5 - Oriented Coma Scale Total: 15 Diagnostics - Vital Signs Vital Signs Temp Pulse Resp BP Pulse Ox 08/02/18 21:12 20 08/02/18 20:00 88 16 93 08/02/18 19:57 18 08/02/18 19:45 91 19 96 08/02/18 19:44 13 166/87 08/02/18 18:11 92 161/75 98 08/02/18 18:10 90 98 08/02/18 17:49 98.3 F 89 17 152/66 95 - Laboratory Lab Results: Lab Results 08/02/18 08/02/18 08/02/18 Range/Units 19:19 19:19 19:19 WBC (3.5-10.8) 10^3/uL RBC (3.70-4.87) 10^6 /uL Hgb (12.0-16.0) g/dL Hct (35-47) % MCV (80-97) fL MCH (27-31) pg MCHC (31-36) g/dL RDW (10.5-15) % Plt Count (150-450) 10^3/uL MPV (7.4-10.4) fL Neut % (Auto) % Lymph % (Auto) % [place]ock % (Auto) % Eos % (Auto) % Baso % (Auto) % Absolute Neuts (auto) (1.5-7.7) 10^3/ul Absolute Lymphs (auto) (1.0-4.8) 10^3/ul Absolute Monos (auto) (0-0.8) 10^3/ul Absolute Eos (auto) (0-0.6) 10^3/ul Absolute Basos (auto) (0-0.2) 10^3/ul Absolute Nucleated RBC 10^3/ul Nucleated RBC % INR (Anticoag Therapy) 1.01 (0.82-1.09) Sodium 137 (135-145) mmol/L Potassium 3.6 (3.5-5.0) mmol/L Chloride 96 L (101-111) mmol/L Carbon Dioxide 32 (22-32) mmol/L Anion Gap 9 (2-11) mmol/L BUN 35 H (6-24) mg/dL Creatinine 1.16 H (0.51-0.95) mg/dL Est GFR ( Amer) 55.6 (>60) Est GFR (Non-Af Amer) 45.9 (>60) BUN/Creatinine Ratio 30.2 H (8-20) Glucose 268 H (70-100) mg/dL Lactic Acid 1.7 (0.5-2.0) mmol/L Calcium 9.8 (8.6-10.3) mg/dL Total Bilirubin 0.40 (0.2-1.0) mg/dL AST 19 (13-39) U/L ALT 7 (7-52) U/L Alkaline Phosphatase 90 (34-104) U/L C-Reactive Protein 43.27 H (<8.01) mg/L Total Protein 8.0 (6.4-8.9) g/dL Albumin 4.2 (3.2-5.2) g/dL Globulin 3.8 (2-4) g/dL Albumin/Globulin Ratio 1.1 (1-3) 08/02/18 Range/Units 19:19 WBC 11.3 H (3.5-10.8) 10^3/uL RBC 3.72 (3.70-4.87) 10^6 /uL Hgb 10.4 L (12.0-16.0) g/dL Hct 32 L (35-47) % MCV 87 (80-97) fL MCH 28 (27-31) pg MCHC 32 (31-36) g/dL RDW 17 H (10.5-15) % Plt Count 184 (150-450) 10^3/uL MPV 9.5 (7.4-10.4) fL Neut % (Auto) 75.3 % Lymph % (Auto) 13.2 % [place]ascock % (Auto) 5.1 % Eos % (Auto) 5.4 % Baso % (Auto) 1.0 % Absolute Neuts (auto) 8.5 H (1.5-7.7) 10^3/ul Absolute Lymphs (auto) 1.5 (1.0-4.8) 10^3/ul Absolute Monos (auto) 0.6 (0-0.8) 10^3/ul Absolute Eos (auto) 0.6 (0-0.6) 10^3/ul Absolute Basos (auto) 0.1 (0-0.2) 10^3/ul Absolute Nucleated RBC 0.0 10^3/ul Nucleated RBC % 0.1 INR (Anticoag Therapy) (0.82-1.09) Sodium (135-145) mmol/L Potassium (3.5-5.0) mmol/L Chloride (101-111) mmol/L Carbon Dioxide (22-32) mmol/L Anion Gap (2-11) mmol/L BUN (6-24) mg/dL Creatinine (0.51-0.95) mg/dL Est GFR ( Amer) (>60) Est GFR (Non-Af Amer) (>60) BUN/Creatinine Ratio (8-20) Glucose (70-100) mg/dL Lactic Acid (0.5-2.0) mmol/L Calcium (8.6-10.3) mg/dL Total Bilirubin (0.2-1.0) mg/dL AST (13-39) U/L ALT (7-52) U/L Alkaline Phosphatase (34-104) U/L C-Reactive Protein (<8.01) mg/L Total Protein (6.4-8.9) g/dL Albumin (3.2-5.2) g/dL Globulin (2-4) g/dL Albumin/Globulin Ratio (1-3) Result Diagrams: 08/03/18 05:30 08/03/18 05:30 Lab Statement: Any lab studies that have been ordered have been reviewed, and results considered in the medical decision making process. Lower Extremity Course/Dx - Course Course Of Treatment: Patient presents for worsening chronic wounds to left leg. Patient has seen wound care once, has a nurse come out every other day to attend to wounds. Patient states wounds are dramatically larger and deeper with new tissue ulceration in the past 2 days, with foul odor and discharge. Patient has been on Bactrim twice a day 2 months, started on clindamycin yesterday. Denies fever, cough, sore throat, CP, SOB, N/V/D, abdominal pain, change in urine, change in BM. Medical history is DM, CABG, fibromyalgia. Wounds are status post vein harvesting during CABG on and 09/24. Surgeon Dr. Bennett at [facility]. Physical exam: Two ulcers. One located just distal to left knee on medial lower extremity. Second located 6 inches more distally on medial side ofno foul odor noted. Some ulceration of tissue between 2 ulcers. Localized erythema. PMS intact distally. Vital signs within normal limits. Baseline for patient. Labs otherwise unremarkable. Attending physician Dr. Nunez recommended admission for debridement. Discussed patient with surgery on-call Dr. Heck recommended admission to hospitalist and surgical follow-up tomorrow. Patient given vancomycin and Zosyn here in the ED. X-ray negative for osteo. Ultrasound negative for DVT. CTA positive for partial arterial stenosis. Needed to hospitalist. - Diagnoses Provider Diagnoses: Cellulitis, Venous stasis ulcer Discharge - Sign-Out/Discharge Documenting (check all that apply): Patient Departure Patient Received Moderate/Deep Sedation with Procedure: No - Discharge Plan Condition: Stable Disposition: ADMITTED TO [facility] - Billing Disposition and Condition Condition: STABLE Disposition: Admitted to [facility]
[2018-08-02] MEDS ORDERED: methylPREDNISolone 125 MG* 2 ML VIAL IV ONE (21:32)
[2018-08-02] MEDS ORDERED: diPHENhydraMINE IV* 50 MG/ML 1 ml VIAL (BENADRYL) IV ONE (21:32)
[2018-08-03] MEDS ORDERED: Zosyn per Pharmacy* NOTE FOLLOW UP SCH (03:00)
[2018-08-03] MEDS ORDERED: Vancomycin per Pharmacy* NOTE FOLLOW UP SCH (03:00)
[2018-08-03] MEDS ORDERED: Dextrose 50% Syringe 50 ML* 25 GM/50 ML SYRINGE IV PUSH PRN (03:07)
[2018-08-03] MEDS ORDERED: HYDROmorphone INJ* 0.5 MG/0.5 ML SYRINGE IV SLOW PU PRN (03:39)
[2018-08-03] MEDS ORDERED: Ondansetron INJ* 2 MG/ML VIAL IV PRN (03:39)
[2018-08-03 03:41] LABS: CRP High Sensitivity 39.82 mg/L (<2.00)
[2018-08-03 04:33] LABS: Erythrocyte Sed Rate 80 mm/Hr (0-29)
[2018-08-03] MEDS: Piperacillin/Tazobac ADVAN(*) 3.375 GM in NS 0.9% 100 ML* 100 ML IVPB SCH ×3 (05:23→22:05)
[2018-08-03] MEDS: Heparin VIAL(*) 5000 UNITS/ML VIAL (FIVE THOUSAND) SUBCUT SCH ×3 (05:34→22:14)
[2018-08-03] MEDS: Insulin LISPRO* 1 UNITS UNIT SUBCUT SCH ×5 (05:34→22:11)
[2018-08-03] MEDS: Pregabalin CAP(*) 50 MG PO SCH ×3 (05:35→22:03)
[2018-08-03] MEDS: Hydrocodone/Acetamin 10/325 1 TAB PO PRN ×4 (05:35→23:45)
[2018-08-03 05:39] LABS: ABS Basophils 0.1 10^3/ul (0-0.2); ABS Eosinophils 0.1 10^3/ul (0-0.6); ABS Lymphocytes 0.6 10^3/ul (1.0-4.8); ABS Monocytes 0.5 10^3/ul (0-0.8); ABS Neutrophils 14.3 10^3/ul (1.5-7.7); Eosinophil % 0.7 %; Hematocrit 31 % (35-47); Hemoglobin 9.9 g/dL (12.0-16.0); Lymphocyte % 3.8 %; Mean Corpuscular HGB Conc 32 g/dL (31-36); Mean Corpuscular Hemoglobin 28 pg (27-31); Mean Corpuscular Volume 87 fL (80-97); Mean Platelet Volume 9.3 fL (7.4-10.4); Platelet Count 167 10^3/uL (150-450); Red Blood Count 3.55 10^6 /uL (3.70-4.87); Red Cell Distribution Width 17 % (10.5-15); White Blood Count 15.6 10^3/uL (3.5-10.8)
[2018-08-03 05:56] LABS: Albumin 3.7 g/dL (3.2-5.2); Albumin/Globulin Ratio 1.1 (1-3); BUN/Creatinine Ratio 27.7 (8-20); Calcium 8.9 mg/dL (8.6-10.3); EGFR African American 70.8 (>60); EGFR Non-African American 58.5 (>60); Globulin 3.4 g/dL (2-4); Magnesium 2.3 mg/dL (1.9-2.7); Phosphorus 3.4 mg/dL (2.5-5.0); Potassium 4.3 mmol/L (3.5-5.0); Total Bilirubin 0.5 mg/dL (0.2-1.0); Total Protein 7.1 g/dL (6.4-8.9)
[2018-08-03] MEDS ORDERED: Morphine 4 MG/ML VIAL (1 ml) 4 MG/ML VIAL ONE (07:15)
[2018-08-03] MEDS: Losartan TAB* 25 MG PO SCH (07:42)
[2018-08-03] MEDS: Metoprolol Tartrate TAB* 25 MG PO SCH (07:42)
[2018-08-03] MEDS: Atorvastatin* 40 MG TAB PO SCH (07:44)
[2018-08-03] MEDS: Pramipexole TAB* 0.5 MG PO SCH ×3 (07:44→22:02)
[2018-08-03] MEDS ORDERED: Vancomycin(*) 1,500 MG in NS 0.9% 250 ML* 250 ML IVPB ONE (08:00)
[2018-08-03] MEDS: Bumetanide TAB* 2 MG PO SCH (08:48)
--- NOTE | 2018-08-03 10:30 | HP ---
HISTORY AND PHYSICAL: DATE OF ADMISSION: 08/03/18 CHIEF COMPLAINT: Left lower extremity postoperative wound that is wet, weepy, and painful since a few hours prior to admission. HISTORY OF PRESENT ILLNESS: The patient is a 72-year-old lady with history of CAD, status post CABG on 04/15/16 at [facility] who has had a complicated course since then. 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 She was also being treated at that time for cellulitis of her postoperative wound. It was noted at that point on her discharge summary that she had been advised to follow up with Dr. Lyle and was set up for VNS. However, per patient, she has not followed up with Dr. Lyle and seemed unaware that she was supposed to follow up with ID on discharge. She mentioned that she had been referred initially to ID by [facility], but has since been lost to follow up. She mentioned that since her last discharge from our facility, her left lower extremity has not improved and has been in pain. She mentioned that 1 week postdischarge, she followed up with her PCP who then placed her on Bactrim and she has been on Bactrim since yesterday when her primary care physician told to change it to clindamycin. She mentions that she also was recently seen by her visiting nurse, Aditi, on Thursday and advised that one of her colleagues would be able to see her on Thursday because she would be unable to and she will defer on her colleague to reassess the wound to see whether there has been some improvement or worsening. Unfortunately, her reliever was not able to come earlier today when the patient has already been complaining of some discharge of her postoperative wound and increasing pain. However, later this afternoon when Aditi's reliever was unable to come to evaluate Mrs. Yo, the patient found her dressings to be soaked in serosanguineous fluid and hence the visiting nurse team was able to contact Aditi who was able to able to evaluate patient and mentioned that her wound has gotten worse despite therapy and advised ER evaluation, at which point she was found to have mild leukocytosis with possible cellulitis and hence her admission. In the ED, she received vanco, Zosyn, pregabalin, pramipexole, Zofran, 1 L normal saline bolus, morphine 4 mg IV x2, Solu-Medrol, and diphenhydramine. PAST MEDICAL AND SURGICAL HISTORY: 1. Diabetes. 2. Basal cell carcinoma, status post excision on the right hand. 3. Chronic hypoxic respiratory failure with 2 L of O2 at night, only started since post CABG. 4. Hypertension. 5. Obesity. 6. Chronic pain syndrome. 7. Restless legs syndrome. 8. Diabetic neuropathy. HOME MEDICATIONS: Are as follows: 1. Colace. 2. Jardiance. 3. Glipizide. 4. Metoprolol tartrate. 5. Losartan. 6. Atorvastatin. 7. Hydrocodone. 8. Acetaminophen. 9. Clindamycin. 10. Pregabalin. 11. Bumetanide. 12. Pramipexole. ALLERGIES: To KEFLEX which causes itching and hives. She also has a noted allergy to IODINATED CONTRAST and has received premedication prior to being exposed to contrast in the ED. ROFECOXIB, GLUCOSAMINE, IBUPROFEN, METFORMIN, and ROPINIROLE. FAMILY HISTORY: Skin cancer of unknown type in her mother. SOCIAL HISTORY: She mentions she has quit smoking since December 2017. She denies any alcohol abuse nor IV drug use. She lives alone, but has a VNS and an aide that comes in. Her healthcare proxy is her daughter, Amaya. PHYSICAL EXAMINATION GENERAL APPEARANCE: The patient is awake, alert, and oriented x3, not in acute distress. VITAL SIGNS: Reveals the most recent vital sings of records with blood pressure of 148/72, 80 beats per minute heart rate, 21 per minute respiratory rate, saturating at 97% on room air. HEENT: Normocephalic, atraumatic. PERRLA. Extraocular muscles intact. Negative for icterus. Moist oral mucosa. Negative throat erythema. NECK: Soft and supple with no cervical lymphadenopathy. Difficult to assess JVD given obesity. CHEST: Bibasilar crackles, otherwise no wheezes nor rales nor rhonchi with good air entry. HEART: S1, S2 within normal limits. No murmurs, rubs, or gallops. ABDOMEN: Soft, nondistended. Initially, the patient was squinting when I let go of her right lower quadrant and on subsequent repetition is not consistent with possible rebound. EXTREMITIES: No cyanosis or clubbing with bilateral lower extremity edema 1+ although difficult to assess given her obesity. SKIN EXAM: She has 2 well delineated ulcers with erythema surrounding them, and on the lower ulceration, there is some metallic object seen to be shining through from her tissue, and the deep wound also has some sanguineous looking fluid that appears yellowish to green. DIAGNOSTIC STUDIES/LAB DATA: The most recent pertinent laboratories drawn show CBC with a WBC of 11.3, H and H of 10.4 and 32, platelets of 184. Sodium and potassium were normal. BUN and creatinine of 35 and 1.16. INR of 1.01. GFR of 45.9. Doppler of left lower extremity shows left popliteal and calf veins that are not seen. Negative for DVT. CTA of the abdominal aorta and runoff rather shows subcutaneous edema of lower extremity bilaterally, left greater than right, with large soft tissue ulceration at the medial aspect of the left knee and medial mid left thigh, there is a foreign body that is noted within the ulceration of the medial left thigh, and multifocal stenosis of the right lower extremity, the greatest appears to be in the proximal right popliteal artery estimated to be at 50% to 70%. There is also multifocal left lower extremity stenosis with occlusion of the left superficial femoral artery and reconstitution of the proximal popliteal artery. There is a mild bibasilar fibroatelectatic change and question of minimal infiltrates, and there has been prior cholecystectomy and hysterectomy, and there is a suggestion of significant origin stenosis of celiac artery and suggestion of at least mild origin stenosis of only left renal artery. 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 1. Left lower extremity arterial ulcers with possible cellulitis. At this point, when her legs on the left lower extremity are not warm to touch and is cooler than her right lower extremity, it is tender to touch, erythematous, and slightly edematous; however, it is very difficult to determine whether she does have some form of cellulitis given she is a poor historian and has peripheral neuropathy. At this point, I agree with continuing Zosyn and vancomycin; however, given the above exam, I have suggested that the patient likely will need to be seen by vascular surgeon and I have offered transfer in the ED for vascular evaluation. However, given her complicated course as well as her poor experience in [facility], she does not want to be transferred there at this time. Hence, I have spoken with Niranjan of ER to speak with the general surgeon to have her at least evaluated for her arterial ulcerations and to suggest any further intervention if so needed. I will defer with hospitalist colleague juan ramon tomorrow to inform Dr. Lyle of patient's arrival for subsequent consultation and followup. 2. Diabetes mellitus. We will hold p.o. medications and we will place her on sliding scale and we will continue to monitor fingersticks q.a.c. and at bedtime. 3. Hypertension, well controlled, continue bumetanide for her bilateral lower extremity swelling as well as losartan. 4. Restless legs syndrome, well controlled. Continue pramipexole. 5. DVT prophylaxis, we will place patient on heparin subcu as ordered. 6. Disposition for PT eval as above. [id number]/[facility] #: [id number] [facility] CENTERMarita
[2018-08-03] MEDS: HYDROmorphone INJ1* 1 MG/ML SYRINGE IV SLOW PU PRN ×2 (12:09→22:04)
--- NOTE | 2018-08-03 16:27 | CONSULT ---
Consult Consult: Date of Service: 08/03/18 Requesting Provider: Dr. Heck and Dr. Bartlett/Hospitalist Service Reason for Consultation: Ischemic chronic left lower leg wound. (Focused) HPI: Mrs. Yo is a 72 YOF vasculopath that recently presented to the ER with worsening left lower leg pain due to an enlarging lower leg wound. Risk factors for vasculopathy include PPD cigarette smoking up until December 2017, diabetes and hypercholesterolemia. She underwent CABG surgery April 2018 that included (saphenous) vein harvesting from the left lower leg. The surgical sites have continued to deteriorate and enlarge. Prior to this surgery she describes claudication in her L>R leg that prevented her from walking more than 50 yards. She also describes "restless leg syndrome" that would wake her from sleep. The pain usually resolved when she walked around her bedroom. Sleeping in a recliner has prevented night time rest pain. The patient reports a contrast reaction back in the "1960's". She is not aware of ever having a contrast reaction since. She denies SOB, lip swelling, itchiness or hives after receiving contrast for her CTA recently. PMH: Endocrine/Hematology History: Reports: Hx Diabetes Cardiovascular History: Reports: Hx Angina, Hx Hypercholesterolemia, Hx Hypertension Denies: Hx Pacemaker/ICD Respiratory History: Reports: Hx Sleep Apnea GI History: Reports: Hx Gastroesophageal Reflux Disease, Hx Ulcer - Stomach Musculoskeletal History: Reports: Hx Arthritis, Hx Back Problems, Hx Fibromyalgia, Other Musculoskeletal History - Carpal Tunnel Left Wrist; Bilateral Knee Pain Sensory History: Reports: Hx Contacts or Glasses Denies: Hx Hearing Aid Opthamlomology History: Reports: Hx Contacts or Glasses Neurological History: Reports: Other Neuro Impairments/Disorders - Peripheral Neuropathy; Restless Leg Syndrome Psychiatric History: Reports: Hx Anxiety, Hx Depression, Other Psychiatric Issues/Disorders - Insomnia Denies: Hx Panic Disorder - Cancer History Cancer Type, Location and Year: Squamous Cell Cancer - Surgical History Surgery Procedure, Year, and Place: [facility] [place], 04/15/18- HYSTER, SHOULDER Infectious Disease History: No Infectious Disease History: Denies: Traveled Outside the [place] in Last 30 Days - Social History Alcohol Use: None Hx Substance Use: Yes Substance Use Type: Reports: Prescribed Smoking Status (MU): Former Smoker Type: Cigarettes Amount Used/How Often: 1-2 per day Have You Smoked in the Last Year: No Physical Examination: Selected Entries 05/28/19 15:54 Temperature 98.1 F Temperature Temporal Artery Source Scan Pulse Rate 71 Respiratory 16 Rate Blood Pressure 98/42 (mmHg) Blood Pressure 56 Mean O2 Sat by Pulse 93 Oximetry Patient on Room Yes Air Mild distress, AAO x3 RRR, S1/S2 CTAB Abdomen is soft, NT 1+ pulses palpated at the bilateral DISPERSION MIXER Cannot palpate pulses from popliteal and down 1+ pitting edema in bilateral lower legs, skin is "scaly" Left lower leg wound is dressed at the time of PE Relevant Imaging: CTA w/ runoff, August 02, 2018 IMPRESSION: 1. Subcutaneous edema of the lower extremities bilaterally, left greater than right with large soft tissue ulcerations at the medial aspect of the left knee and medial mid left thigh. A foreign body is noted within the ulceration of the medial left thigh. 2. Multifocal stenoses of the right lower extremity. The greatest appears to be in the proximal right popliteal artery estimated at 50-70%. 3. Multifocal left lower extremity stenoses with occlusion of the left superficial femoral artery and reconstitution of the proximal popliteal artery. Other stenoses are estimated at 50-70% at several points. 4. Mild bibasilar fibro-atelectatic change and question of minimal infiltrates. 5. There has been prior cholecystectomy and hysterectomy. 6. Suggestion of significant origin stenosis of the celiac artery. 7. Suggestion of at least mild origin stenosis of only left renal artery. <Electronically signed by Dariel Kwong MD in [place]> 08/03/1810 Dictated By: Dariel Kwong MD Dictated Date/Time: 08/03/1810 Transcribed Date/Time: Relevant Labs: Laboratory Tests 08/02/18 08/02/18 08/03/18 19:19 19:19 05:30 WBC RBC Hgb Hct INR (Anticoag Therapy) 1.01 BUN 26 H Creatinine 0.94 Est GFR ( Amer) 70.8 Est GFR (Non-Af Amer) 58.5 C-Reactive Protein 43.27 H C-React Prot High Sens 39.82 H 08/03/18 05:30 WBC 15.6 H RBC 3.55 L Hgb 9.9 L Hct 31 L INR (Anticoag Therapy) BUN Creatinine Est GFR ( Amer) Est GFR (Non-Af Amer) C-Reactive Protein C-React Prot High Sens Summary: 72 YOF vasculopath with at least a left mid SFA occlusion above her non-healing left lower leg wound. I discussed with her that chronic wounds will heal poorly, even with the best of wound care, without direct in line arterial flow. Plan/Recommendations: 1. Pelvic and LLE arteriography with anticipated revascularization of the occluded left SFA. Possible angioplasty, atherectomy and/or stenting. 2. NPO after 0400 hours on 08/04/18. 3. Plavix 75 mg PO daily. 4. Continue wound care. 5. Baseline LINDA.
--- NOTE | 2018-08-03 17:00 | CONS ---
CONSULTATION REPORT: DATE OF CONSULT: REFERRING PROVIDER: Shalom Velez MD, Hospitalist Service. REASON FOR CONSULTATION: Left lower extremity postoperative nonhealing wounds. HISTORY OF PRESENT ILLNESS: Ms. Lily Yo is a 72-year-old woman with a history of coron milly artery disease, status post coronary bypass grafting this past April 2018 at [facility] who had a complicated course postoperatively. She was admitted to [facility] in May 2018 with padma rtness of breath and felt to be in heart failure. She was also noted that there was some cellulitis of the left lower vein harvest site in the upper portion of the medial calf. Visiting nurses apparent ly had been performing wound care, but other than that, she had been lost to follow up, however, she had been seen twice in the last 2 weeks in the wound center and started on oral clindamycin by Dr. Bacilio yoo. She had some discomfort and some discoloration of the wound, and she presented to the emergency room last night after there was significant serosanguineous drainage. In the emergency room, she was noted to be afebrile. She did not have tachycardia. Her white blood c ell count was 11,300. She was noted to have some redness, irritation and some serosanguineous fluid from her open wounds. She was admitted to the Hospitalist Service, started on IV antibiotics and Surgical consultation was obtained. In addition to the above workup, she had a venous Doppler study, which was unremarkable for thrombosi s. She also underwent CTA of the aorta with run off, which showed the ulceration of the medial aspec t of the left calf as well as multifocal left lower extremity stenosis with occlusion of the left sup erficial femoral artery and reconstitution of the proximal popliteal artery. PAST MEDICAL HISTORY: 1. Obesity. 2. Chronic pain syndrome. 3. Restless legs. 4. Diabetic neuropathy. HOME MEDICINES: Include: 1. Colace. 2. Jardiance. 3. Glipizide. 4. Metoprolol. 5. Losartan. 6. Atorvastatin. 7. Hydrocodone. 8. Acetaminophen. 9. Clindamycin. 10. Pregabalin. 11. Bumetanide. 12. Pramipexole. ALLERGIES: KEFLEX, IODINE, ROFECOXIB, GLUCOSAMINE, IBUPROFEN, METFORMIN, ROPINIROLE. FAMILY HISTORY: Skin cancer of unknown type in her mother. SOCIAL HISTORY: She mentioned she quit smoking in 2018. She does not use alcohol. No IV drug abuse. She lives alone. Her healthcare proxy is her daughter. PHYSICAL EXAM: Temperature 97.4, pulse 65, blood pressure 100/54. General: Well- developed overwei ght female. She is awake, alert and quite conversive. Her abdomen is obese, but nontender. She had normoactive bowel sounds. Her lungs were clear to auscultation with normal respiratory effort. She has a well-healed median sternotomy incision without redness or tenderness. Heart with regular rate and rhythm without murmurs, rubs or gallops. Left lower extremity showed there is no palpable femor al, popliteal, or distal pulses. She has edema in both lower extremities. In the upper medial calf area at the site of the previous vein harvest, there are 2 areas of open wounds, each approximately 3 cm x 3 cm with exposed subcutaneous fat and some surrounding erythema. There is no odor or purulenc e. There is no undrained abscess. There is some non-viable tissue and subcutaneous fat present. Lo wer pretibial area shows 1 to 2+ pitting edema. I appreciate no posterior tibial or anterior tibial pulse or dorsalis pedis pulse. She has loss of light touch and pinprick in the foot all the way up to the mid starks area. She has full motor strength in the foot, ankle and knee. IMPRESSION: Nonhealing surgical wound of left lower extremity from previous vein harvest for coronar y bypass grafting. This developed a cellulitis with some nonviable tissue. It has not responded to conventional wound care over the past several months. She was admitted with apparent worsening of th e erythema. She has a mild elevation of her white blood cell count but no fever or signs of sepsis. CTA shows a significant peripheral vascular disease in the left lower extremity, particularly in the superficial femoral artery distribution. PLAN: 1. The patient has been admitted and started on intravenous antibiotics. Cultures have now returned pseudomonas aeruginosa and E. coli from the wound. She will be placed on appropriate antibiotics wi an Infectious Disease consult from Dr. Lyle. 2. We will start aggressive wound care. However, at this point, we will start wet to dry twice sergio y 4x4 gauze. The wounds may require further operative debridement depending on the clinical course o f the next several days. 3. Dr. Maxi Sharma from Interventional Radiology, has been consulted for the superficial femoral a rtery occlusion and she may be a candidate for intervention in this regard to improve inflow. 4. The leg should be elevated as much as possible. 5. We will follow the patient closely with you. [id number]/[facility] #: [id number]
--- NOTE | 2018-08-03 17:22 | CONSULT ---
Subjective Date of Service: 08/03/18 Interval History: Ms. Yo is a 72 yo female with PMH significant for CAD s/p CABG on 04/15/18, CHF , Hanna syndrome, DM, basal cell CA, chronic hypoxic respiratory failure on home O2, HTN, obesity, chronic pain syndrome, RLS, and diabetic neuropathy who presented to the emergency room with complaints of a non healing left LE postoperative wound. Ms. Yo underwent a CABG with left LE vein harvest in April 2018. She states that the incision has been open since surgery. She reports VNS coming to her home and doing packing changes a few times a week to the wounds. She has been seen by the [facility] for wound healing and was supposed to have outpatient imaging completed, that was never completed. She was also seen in consultation by Dr. Heck with general surgery regarding her left LE wound during this hospitalization. Patient seen and examined at bedside. Family History: Unchanged from Admission Social History: Unchanged from Admission Past Medical History: Unchanged from Admission Review of Systems - Measurements Intake and Output: Intake and Output Last 24 Hours 08/01/18 08/02/18 08/03/18 08/04/18 06:59 06:59 06:59 06:59 Intake Total 1350 125 Balance 1350 125 Weight 232 lb Intake: IV Fluids 1350 15 Zosyn 15 IVPB 110 Zosyn 110 - Review of Systems Constitutional Symptoms: Negative: Fever, Other - Chills Dermatology: Positive: Other - Open areas to the left lateral leg Endocrinology: Positive: Diabetes Mellitus Objective Active Medications: Hydrocodone Bitart/Acetaminophen ([place] 10/325 (Nf)) 1 tab PO Q4H PRN Reason: PAIN Atorvastatin Calcium (Lipitor*) 40 mg PO DAILY [facility] Bumetanide (Bumex Tab*) 2 mg PO DAILY [facility] Dextrose (D50w Syringe 50 Ml*) 12.5 gm IV PUSH .FOR FS < 60 - SS PRN Reason: FS < 60 Docusate Sodium (Colace Cap*) 100 mg PO BEDTIME [facility] Heparin Sodium (Porcine) (Heparin Vial(*)) 5,000 units SUBCUT Q8HR [facility] Hydromorphone HCl (Dilaudid Inj1s*) 0.5 mg IV SLOW PU Q4H PRN Reason: PAIN Piperacillin Sod/Tazobactam (Sod 3.375 gm/ Sodium Chloride) 100 mls @ 25 mls/ hr IVPB Q8H [facility] Vancomycin HCl 1,000 mg/ (Sodium Chloride) 250 mls @ 166.667 mls/hr IVPB Q12H [facility] Insulin Human Lispro (Humalog*) 0 units SUBCUT ACHS [facility]; Protocol Losartan Potassium (Cozaar Tab*) 25 mg PO DAILY [facility] Metoprolol Tartrate (Lopressor Tab*) 12.5 mg PO DAILY [facility] Ondansetron HCl (Zofran Inj*) 4 mg IV Q6H PRN Reason: NAUSEA/VOMITING Pharmacy Consult (Vancomycin Per Pharmacy*) 0 note FOLLOW UP .VANC PER PHARMACY [facility]; Protocol Pharmacy Consult (Zosyn Per Pharmacy*) 1 note FOLLOW UP .ZOSYN PER PHARMACY [facility] Pharmacy Profile Note (Vancomycin Trough Check) 1 note FOLLOW UP 729 ONE Stop: 08/05/18 07:31 Pramipexole Dihydrochloride (Mirapex Tab*) 1 mg PO TID [facility] Pregabalin (Lyrica Cap(*)) 150 mg PO Q8HR [facility] Vital Signs 08/03/18 08/03/18 08/03/18 14:39 14:48 15:54 Temperature 98.1 F Pulse Rate 71 Respiratory 18 18 16 Rate Blood Pressure 98/42 (mmHg) O2 Sat by Pulse 93 Oximetry Oxygen Devices in Use Now: None Appearance: NAD, laying in bed Ears/Nose/Mouth/Throat: Mucous Membranes Moist Respiratory: Symmetrical Chest Expansion and Respiratory Effort Skin: - - See skin note below Neurological: Alert and Oriented x 3, NL Muscle Strength and Tone Result Diagrams: 08/04/18 07:02 08/05/18 05:54 Microbiology and Other Data: Microbiology 08/02/18 20:13 Skin and Soft Tissue MRSA/MSSA (PCR - Final Knee Left Mrsa Negative S.aureus Negative Gram Stain - Final Wound Culture - Preliminary Pseudomonas Aeruginosa Escherichia Coli 08/02/18 20:13 Skin and Soft Tissue MRSA/MSSA (PCR - Final Leg Left Mrsa Negative S.aureus Negative Gram Stain - Final Wound Culture - Preliminary Pseudomonas Aeruginosa Escherichia Coli 08/03/18 04:35 Nasal Screen MRSA (PCR) - Final Nasal Mrsa Not Detected Skin Deviation Note - Skin Deviation Findings left medial leg - Open surgical incision. The proximal wound measures 2.8 cm x 4 cm x 1.7 cm. The wound base is black eschar. The distal wound measures 4.5 cm x 2.5 cm x 1 cm. The wound base is yellow slough. There is a surgical clip visible in the distal portion of this wound. There is dark colored eschar between the 2 wounds. The surrounding skin has erythema and irritation from tape. There is serous drainage noted. Left lateral LE - There is a superficial open area, measures 2 cm x 2 cm x 0.1 cm. The wound base is pink granulation tissue. The surrounding skin is intact with dry flaky skin. No drainage noted. Left heel - There is a superfical open area to the left heel, measures 1 cm x 0.7 cm x 0.1 cm. The wound base is pink granulation tissue. There is no drainage and the surrounding skin is intact. Assessment/Plan: Ms. Yo is a 72 yo female with PMH significant for CAD s/p CABG on 04/15/18, CHF , Hanna syndrome, DM, basal cell CA, chronic hypoxic respiratory failure on home O2, HTN, obesity, chronic pain syndrome, RLS, and diabetic neuropathy who presented to the emergency room with complaints of a non healing left LE postoperative wound. 1. Chronic non healing surgical incision to the left leg. Has been seen by the wound clinic outpatient and Dr. Heck with general surgery. She will be seen later today by Dr. Sharma about revascularization of the left leg. Recommend wet (normal saline) to dry 4x4 gauze packing and cover with dry gauze , and rolled gauze. Change BID. 2. Diabetic ulcer to the left heel. Recommend applying antibiotic ointment to the heel twice daily. Keep pressure off the left heel. 3. Diabetes Mellitus, type 2 with diabetic neuropathy. HgA1C was 8.0 on 06/11/18. 4. Obesity. BMI 39. 5. Diet. Consistent Carbohydrate diet. 6. Code Status. Full code. 7. Disposition. Inpatient, disposition per primary medicine team TIME SPENT: Time for this wound consultation was 30 minutes and 20 minutes was spent with the patient discussing past medical history; assessing, measuring and photographing the wound; removing the old dressing and reapplying a new dressing. Wound Problem/Plan Is Patient a Wound Clinic Patient: Yes - [facility] Current Treatment: Patient is unsure Attending: Nikki Wolfe
--- NOTE | 2018-08-03 17:25 | PN ---
Subjective Date of Service: 08/03/18 Interval History: Pt c/o left medial knee wound that opened 4 days ago. Had been under the care of Dr. Gloria from [facility] Objective Active Medications: Hydrocodone Bitart/Acetaminophen ([place] 10/325 (Nf)) 1 tab PO Q4H PRN PRN Reason: PAIN Last Admin: 08/03/18 14:39 Dose: 1 tab Atorvastatin Calcium (Lipitor*) 40 mg PO DAILY [facility] Last Admin: 08/03/18 07:44 Dose: 40 mg Bumetanide (Bumex Tab*) 2 mg PO DAILY [facility] Last Admin: 08/03/18 08:48 Dose: 2 mg Dextrose (D50w Syringe 50 Ml*) 12.5 gm IV PUSH .FOR FS < 60 - SS PRN PRN Reason: FS < 60 Docusate Sodium (Colace Cap*) 100 mg PO BEDTIME [facility] Heparin Sodium (Porcine) (Heparin Vial(*)) 5,000 units SUBCUT Q8HR [facility] Last Admin: 08/03/18 13:24 Dose: 5,000 units Hydromorphone HCl (Dilaudid Inj1s*) 0.5 mg IV SLOW PU Q4H PRN PRN Reason: PAIN Last Admin: 08/03/18 12:09 Dose: 0.5 mg Piperacillin Sod/Tazobactam (Sod 3.375 gm/ Sodium Chloride) 100 mls @ 25 mls/ hr IVPB Q8H [facility] Last Admin: 08/03/18 12:09 Dose: 25 mls/hr Vancomycin HCl 1,000 mg/ (Sodium Chloride) 250 mls @ 166.667 mls/hr IVPB Q12H [facility] Insulin Human Lispro (Humalog*) 0 units SUBCUT ACHS [facility]; Protocol Last Admin: 08/03/18 13:24 Dose: 6 units Losartan Potassium (Cozaar Tab*) 25 mg PO DAILY [facility] Last Admin: 08/03/18 07:42 Dose: 25 mg Metoprolol Tartrate (Lopressor Tab*) 12.5 mg PO DAILY [facility] Last Admin: 08/03/18 07:42 Dose: 12.5 mg Ondansetron HCl (Zofran Inj*) 4 mg IV Q6H PRN PRN Reason: NAUSEA/VOMITING Last Admin: 08/03/18 04:01 Dose: 4 mg Pharmacy Consult (Vancomycin Per Pharmacy*) 0 note FOLLOW UP .VANC PER PHARMACY [facility]; Protocol Pharmacy Consult (Zosyn Per Pharmacy*) 1 note FOLLOW UP .ZOSYN PER PHARMACY [facility] Pharmacy Profile Note (Vancomycin Trough Check) 1 note FOLLOW UP 0730 ONE Stop: 08/05/18 07:31 Pramipexole Dihydrochloride (Mirapex Tab*) 1 mg PO TID [facility] Last Admin: 08/03/18 13:24 Dose: 1 mg Pregabalin (Lyrica Cap(*)) 150 mg PO Q8HR [facility] Last Admin: 08/03/18 14:39 Dose: 150 mg Vital Signs - 8 hr 08/03/18 08/03/18 08/03/18 11:04 12:09 13:25 Temperature 97.4 F Pulse Rate 65 Respiratory 18 18 18 Rate Blood Pressure 100/54 (mmHg) O2 Sat by Pulse 97 Oximetry 08/03/18 08/03/18 08/03/18 14:39 14:48 15:54 Temperature 98.1 F Pulse Rate 71 Respiratory 18 18 16 Rate Blood Pressure 98/42 (mmHg) O2 Sat by Pulse 93 Oximetry 08/03/18 16:48 Temperature Pulse Rate Respiratory 16 Rate Blood Pressure (mmHg) O2 Sat by Pulse Oximetry Oxygen Devices in Use Now: None Appearance: 72 yo F in nAD, AAOx3 Eyes: No Scleral Icterus, PERRLA Ears/Nose/Mouth/Throat: NL Teeth, Lips, Gums, Mucous Membranes Moist Neck: NL Appearance and Movements; NL JVP, Trachea Midline Respiratory: Symmetrical Chest Expansion and Respiratory Effort, Clear to Auscultation Cardiovascular: NL Sounds; No Murmurs; No JVD, RRR Abdominal: NL Sounds; No Tenderness; No Distention Lymphatic: No Cervical Adenopathy Extremities: No Edema, No Clubbing, Cyanosis Skin: No Nodules or Sclerosis, - - left medial knee area wound at 5 cm in lenght 2-3 cm deep, doen to muscle with scan purulent discharge, below that another smaller sounf at 3 cm in diam 2 cm deep, bottom covered with slough Neurological: Alert and Oriented x 3, NL Muscle Strength and Tone Result Diagrams: 08/03/18 05:30 08/03/18 05:30 Additional Lab and Data: Lab Results 08/02/18 08/02/18 08/02/18 Range/Units 19:19 19:19 19:19 WBC (3.5-10.8) 10^3/uL RBC (3.70-4.87) 10^6 /uL Hgb (12.0-16.0) g/dL Hct (35-47) % MCV (80-97) fL MCH (27-31) pg MCHC (31-36) g/dL RDW (10.5-15) % Plt Count (150-450) 10^3/uL MPV (7.4-10.4) fL Neut % (Auto) % Lymph % (Auto) % [place] % (Auto) % Eos % (Auto) % Baso % (Auto) % Absolute Neuts (auto) (1.5-7.7) 10^3/ul Absolute Lymphs (auto) (1.0-4.8) 10^3/ul Absolute Monos (auto) (0-0.8) 10^3/ul Absolute Eos (auto) (0-0.6) 10^3/ul Absolute Basos (auto) (0-0.2) 10^3/ul Absolute Nucleated RBC 10^3/ul Nucleated RBC % INR (Anticoag Therapy) 1.01 (0.82-1.09) Sodium 137 (135-145) mmol/L Potassium 3.6 (3.5-5.0) mmol/L Chloride 96 L (101-111) mmol/L Carbon Dioxide 32 (22-32) mmol/L Anion Gap 9 (2-11) mmol/L BUN 35 H (6-24) mg/dL Creatinine 1.16 H (0.51-0.95) mg/dL Est GFR ( Amer) 55.6 (>60) Est GFR (Non-Af Amer) 45.9 (>60) BUN/Creatinine Ratio 30.2 H (8-20) Glucose 268 H (70-100) mg/dL Lactic Acid 1.7 (0.5-2.0) mmol/L Calcium 9.8 (8.6-10.3) mg/dL Total Bilirubin 0.40 (0.2-1.0) mg/dL AST 19 (13-39) U/L ALT 7 (7-52) U/L Alkaline Phosphatase 90 (34-104) U/L C-Reactive Protein 43.27 H (<8.01) mg/L Total Protein 8.0 (6.4-8.9) g/dL Albumin 4.2 (3.2-5.2) g/dL Globulin 3.8 (2-4) g/dL Albumin/Globulin Ratio 1.1 (1-3) 08/02/18 Range/Units 19:19 WBC 11.3 H (3.5-10.8) 10^3/uL RBC 3.72 (3.70-4.87) 10^6 /uL Hgb 10.4 L (12.0-16.0) g/dL Hct 32 L (35-47) % MCV 87 (80-97) fL MCH 28 (27-31) pg MCHC 32 (31-36) g/dL RDW 17 H (10.5-15) % Plt Count 184 (150-450) 10^3/uL MPV 9.5 (7.4-10.4) fL Neut % (Auto) 75.3 % Lymph % (Auto) 13.2 % Child[place] % (Auto) 5.1 % Eos % (Auto) 5.4 % Baso % (Auto) 1.0 % Absolute Neuts (auto) 8.5 H (1.5-7.7) 10^3/ul Absolute Lymphs (auto) 1.5 (1.0-4.8) 10^3/ul Absolute Monos (auto) 0.6 (0-0.8) 10^3/ul Absolute Eos (auto) 0.6 (0-0.6) 10^3/ul Absolute Basos (auto) 0.1 (0-0.2) 10^3/ul Absolute Nucleated RBC 0.0 10^3/ul Nucleated RBC % 0.1 INR (Anticoag Therapy) (0.82-1.09) Sodium (135-145) mmol/L Potassium (3.5-5.0) mmol/L Chloride (101-111) mmol/L Carbon Dioxide (22-32) mmol/L Anion Gap (2-11) mmol/L BUN (6-24) mg/dL Creatinine (0.51-0.95) mg/dL Est GFR ( Amer) (>60) Est GFR (Non-Af Amer) (>60) BUN/Creatinine Ratio (8-20) Glucose (70-100) mg/dL Lactic Acid (0.5-2.0) mmol/L Calcium (8.6-10.3) mg/dL Total Bilirubin (0.2-1.0) mg/dL AST (13-39) U/L ALT (7-52) U/L Alkaline Phosphatase (34-104) U/L C-Reactive Protein (<8.01) mg/L Total Protein (6.4-8.9) g/dL Albumin (3.2-5.2) g/dL Globulin (2-4) g/dL Albumin/Globulin Ratio (1-3) Microbiology and Other Data: Microbiology 08/02/18 20:13 Skin and Soft Tissue MRSA/MSSA (PCR - Final Knee Left Mrsa Negative S.aureus Negative Gram Stain - Final Wound Culture - Preliminary Pseudomonas Aeruginosa Escherichia Coli 08/02/18 20:13 Skin and Soft Tissue MRSA/MSSA (PCR - Final Leg Left Mrsa Negative S.aureus Negative Gram Stain - Final Wound Culture - Preliminary Pseudomonas Aeruginosa Escherichia Coli 08/03/18 04:35 Nasal Screen MRSA (PCR) - Final Nasal Mrsa Not Detected Assess/Plan/Problems-Billing Assessment: 72 yo F with h/o CABG 04/15/18, vein grafted from left LE with chronic LE's edema and nonhealing wound on left LE - Patient Problems (1) Cellulitis Comment: pt has a significant deep wound on medial aspect on left knee. Appreciate wound care consult Cx pending (but MRSA neg) small area of surrouding cellulitis present.cont Zosyn. PAD noted on cTA-for angioplasty of SMA by Dr. Sharma tomorrow (2) CAD (coronary artery disease) Comment: -s/p CABG 04/15/18 (3) Diabetes mellitus, type II Comment: -Continue sliding scale -holding glipizide, jardiance (4) Hypertension Comment: -Continue Losartan,lopressor (5) Chronic diastolic (congestive) heart failure Comment: cont Bumex, euvolemic daily weights EF 55% in 05/2018 (6) DVT prophylaxis Comment: -Heparin SQ Status and Disposition: inpatient
[2018-08-03] MEDS: Clopidogrel TAB* 75 MG PO SCH (17:59)
[2018-08-03] MEDS ORDERED: Vancomycin(*) 1,000 MG in NS 0.9% 250 ML* 250 ML IVPB SCH (20:00)
[2018-08-03] MEDS: Docusate CAP* 100 MG PO SCH (22:03)
[2018-08-04] MEDS: HYDROmorphone INJ1* 1 MG/ML SYRINGE IV SLOW PU PRN ×2 (02:02→09:55)
[2018-08-04] MEDS: Hydrocodone/Acetamin 10/325 1 TAB PO PRN ×3 (05:09→18:24)
[2018-08-04] MEDS: Pregabalin CAP(*) 50 MG PO SCH ×3 (05:10→22:36)
[2018-08-04] MEDS: Piperacillin/Tazobac ADVAN(*) 3.375 GM in NS 0.9% 100 ML* 100 ML IVPB SCH ×3 (05:11→22:37)
[2018-08-04] MEDS: Heparin VIAL(*) 5000 UNITS/ML VIAL (FIVE THOUSAND) SUBCUT SCH ×3 (05:26→22:40)
[2018-08-04 06:49] LABS: Calcium 8.8 mg/dL (8.6-10.3); Potassium 4.1 mmol/L (3.5-5.0)
[2018-08-04 06:55] LABS: BUN/Creatinine Ratio 25.4 (8-20); EGFR Non-African American 38.9 (>60)
[2018-08-04 07:28] LABS: ABS Basophils 0.2 10^3/ul (0-0.2); ABS Eosinophils 0.9 10^3/ul (0-0.6); ABS Lymphocytes 2.4 10^3/ul (1.0-4.8); ABS Monocytes 0.7 10^3/ul (0-0.8); ABS Neutrophils 9.3 10^3/ul (1.5-7.7); Eosinophil % 6.8 %; Hematocrit 30 % (35-47); Hemoglobin 9.5 g/dL (12.0-16.0); Lymphocyte % 17.8 %; Mean Corpuscular HGB Conc 32 g/dL (31-36); Mean Corpuscular Hemoglobin 28 pg (27-31); Mean Corpuscular Volume 87 fL (80-97); Platelet Count 173 10^3/uL (150-450); Red Blood Count 3.43 10^6 /uL (3.70-4.87); Red Cell Distribution Width 17 % (10.5-15); White Blood Count 13.5 10^3/uL (3.5-10.8)
[2018-08-04] MEDS: Insulin LISPRO* 1 UNITS UNIT SUBCUT SCH ×4 (07:34→22:42)
[2018-08-04] MEDS ORDERED: NS 0.9% 1000 ML** 1,000 ML IV SCH (09:00)
[2018-08-04] MEDS: Bumetanide TAB* 2 MG PO SCH (09:19)
[2018-08-04] MEDS: Pramipexole TAB* 0.5 MG PO SCH ×3 (09:19→22:35)
[2018-08-04] MEDS: Atorvastatin* 40 MG TAB PO SCH (09:20)
[2018-08-04] MEDS: Clopidogrel TAB* 75 MG PO SCH (09:20)
[2018-08-04] MEDS: Metoprolol Tartrate TAB* 25 MG PO SCH (09:20)
[2018-08-04] MEDS: Aspirin EC TAB* 81 MG TAB.EC PO SCH (09:20)
[2018-08-04] MEDS: Losartan TAB* 25 MG PO SCH (09:20)
--- NOTE | 2018-08-04 09:27 | PN ---
Progress Note - Progress Note Date of Service: 08/04/18 SOAP: Subjective: Still with chronic left leg pain For IR procedure today Objective: Temp Pulse Resp BP Pulse Ox 97.5 F 69 18 113/45 96 08/04/18 07:43 08/04/18 07:43 08/04/18 09:20 08/04/18 07:43 08/04/18 07:43 PEX: Left leg remains edematous. Erythema calf and thigh improved. Ulcers on upper medial calf are without drainage or purulence. Some non-viable subcutaneous fat and skin edges present, no odor or tracking. Wound re-dressed. LINDA pending Cultures noted Assessment: PVD left leg Non-healing left leg surgical wound s/p vein harvest. Plan: Continue present wound care IR procedure today-possible left SFA intervention to improve inflow IV abx Elevation
[2018-08-04] MEDS ORDERED: Heparin 2 UNITS/ML IVPREMIX* 3,000 UNIT/1,500 ML BAG IV ONE (12:45)
[2018-08-04] MEDS ORDERED: Iodixanol 320 (CONTRAST) 100 ML SDV ONE (12:45)
[2018-08-04] MEDS ORDERED: Lidocaine 1% INJ* 10 MG/ML 30 ML SDV ONE (12:45)
[2018-08-04] MEDS ORDERED: fentaNYL* 50 MCG/ML 2 ML VIAL (100 MCG VIAL) ONE ×2 (13:03→15:42)
[2018-08-04] MEDS ORDERED: Midazolam* 1 MG/ML 5 ML VIAL (5 MG) ONE (13:04)
[2018-08-04] MEDS ORDERED: Heparin(*) 1000 UNIT/ML 10 ML VIAL CATH LAB IV ONE (13:29)
[2018-08-04] MEDS ORDERED: fentaNYL* 50 MCG/ML 5 ML VIAL (250 MCG VIAL) ONE (13:42)
[2018-08-04] MEDS ORDERED: diPHENhydraMINE IV* 50 MG/ML 1 ml VIAL (BENADRYL) ONE ×2 (14:24→14:48)
[2018-08-04] MEDS ORDERED: nitroGLYCERIN DRIP* 25,000 MCG/250 ML BTL ONE (14:45)
--- NOTE | 2018-08-04 15:27 | PN ---
Subjective Date of Service: 08/04/18 Interval History: Pt is s/p angioplasty today. Feels well. Her chronic LBP got exacerbated by lying on the table Family History: Unchanged from Admission Social History: Unchanged from Admission Past Medical History: Unchanged from Admission Objective Active Medications: Hydrocodone Bitart/Acetaminophen ([place] 10/325 (Nf)) 1 tab PO Q4H PRN PRN Reason: PAIN Last Admin: 08/04/18 09:20 Dose: 1 tab Aspirin (Aspirin Ec Tab*) 81 mg PO DAILY [facility] Last Admin: 08/04/18 09:20 Dose: 81 mg Atorvastatin Calcium (Lipitor*) 40 mg PO DAILY [facility] Last Admin: 08/04/18 09:20 Dose: 40 mg Bumetanide (Bumex Tab*) 2 mg PO DAILY [facility] Last Admin: 08/04/18 09:19 Dose: 2 mg Clopidogrel Bisulfate (Plavix Tab*) 75 mg PO DAILY [facility] Last Admin: 08/04/18 09:20 Dose: 75 mg Dextrose (D50w Syringe 50 Ml*) 12.5 gm IV PUSH .FOR FS < 60 - SS PRN PRN Reason: FS < 60 Docusate Sodium (Colace Cap*) 100 mg PO BEDTIME [facility] Last Admin: 08/03/18 22:03 Dose: 100 mg Heparin Sodium (Porcine) (Heparin Vial(*)) 5,000 units SUBCUT Q8HR [facility] Last Admin: 08/04/18 14:43 Dose: Not Given Hydromorphone HCl (Dilaudid Inj1s*) 0.5 mg IV SLOW PU Q4H PRN PRN Reason: PAIN Last Admin: 08/04/18 09:55 Dose: 0.5 mg Piperacillin Sod/Tazobactam (Sod 3.375 gm/ Sodium Chloride) 100 mls @ 25 mls/ hr IVPB Q8H [facility] Last Admin: 08/04/18 11:25 Dose: 25 mls/hr Sodium Chloride (Ns 0.9% 1000 Ml) 1,000 mls @ 50 mls/hr IV .PER RATE [facility] Last Admin: 08/04/18 09:55 Dose: 50 mls/hr Insulin Human Lispro (Humalog*) 0 units SUBCUT ACHS [facility]; Protocol Last Admin: 08/04/18 11:24 Dose: Not Given Losartan Potassium (Cozaar Tab*) 25 mg PO DAILY [facility] Last Admin: 08/04/18 09:20 Dose: 25 mg Metoprolol Tartrate (Lopressor Tab*) 12.5 mg PO DAILY [facility] Last Admin: 08/04/18 09:20 Dose: 12.5 mg Neomycin/Polymyxin/Bacitracin (Neosporin Top Oint Tube*) 1 applic TOPICAL BID [facility] Ondansetron HCl (Zofran Inj*) 4 mg IV Q6H PRN PRN Reason: NAUSEA/VOMITING Last Admin: 08/03/18 04:01 Dose: 4 mg Pharmacy Consult (Zosyn Per Pharmacy*) 1 note FOLLOW UP .ZOSYN PER PHARMACY [facility] Pramipexole Dihydrochloride (Mirapex Tab*) 1 mg PO TID [facility] Last Admin: 08/04/18 09:19 Dose: 1 mg Pregabalin (Lyrica Cap(*)) 150 mg PO Q8HR [facility] Last Admin: 08/04/18 05:10 Dose: 150 mg Vital Signs - 8 hr 08/04/18 08/04/18 08/04/18 07:34 07:35 07:43 Temperature 97.5 F Pulse Rate 69 Respiratory 18 18 18 Rate Blood Pressure 113/45 (mmHg) O2 Sat by Pulse 96 Oximetry 08/04/18 08/04/18 08/04/18 09:20 09:55 11:14 Temperature 97.4 F Pulse Rate 64 Respiratory 18 18 16 Rate Blood Pressure 111/49 (mmHg) O2 Sat by Pulse 96 Oximetry 08/04/18 11:16 Temperature Pulse Rate Respiratory 18 Rate Blood Pressure (mmHg) O2 Sat by Pulse Oximetry Oxygen Devices in Use Now: None Appearance: 72 yo f in nAD, aAOx3 Eyes: No Scleral Icterus, PERRLA Ears/Nose/Mouth/Throat: NL Teeth, Lips, Gums, Mucous Membranes Moist Neck: NL Appearance and Movements; NL JVP, Trachea Midline Respiratory: Symmetrical Chest Expansion and Respiratory Effort, Clear to Auscultation Cardiovascular: NL Sounds; No Murmurs; No JVD, RRR Abdominal: NL Sounds; No Tenderness; No Distention Lymphatic: No Cervical Adenopathy Extremities: No Edema, No Clubbing, Cyanosis Skin: No Nodules or Sclerosis, - - wounds on medial right knee and below - unchanged Neurological: Alert and Oriented x 3, NL Muscle Strength and Tone Result Diagrams: 08/04/18 07:02 08/04/18 06:10 Additional Lab and Data: Lab Results 08/02/18 08/02/18 08/02/18 Range/Units 19:19 19:19 19:19 WBC (3.5-10.8) 10^3/uL RBC (3.70-4.87) 10^6 /uL Hgb (12.0-16.0) g/dL Hct (35-47) % MCV (80-97) fL MCH (27-31) pg MCHC (31-36) g/dL RDW (10.5-15) % Plt Count (150-450) 10^3/uL MPV (7.4-10.4) fL Neut % (Auto) % Lymph % (Auto) % [place] % (Auto) % Eos % (Auto) % Baso % (Auto) % Absolute Neuts (auto) (1.5-7.7) 10^3/ul Absolute Lymphs (auto) (1.0-4.8) 10^3/ul Absolute Monos (auto) (0-0.8) 10^3/ul Absolute Eos (auto) (0-0.6) 10^3/ul Absolute Basos (auto) (0-0.2) 10^3/ul Absolute Nucleated RBC 10^3/ul Nucleated RBC % INR (Anticoag Therapy) 1.01 (0.82-1.09) Sodium 137 (135-145) mmol/L Potassium 3.6 (3.5-5.0) mmol/L Chloride 96 L (101-111) mmol/L Carbon Dioxide 32 (22-32) mmol/L Anion Gap 9 (2-11) mmol/L BUN 35 H (6-24) mg/dL Creatinine 1.16 H (0.51-0.95) mg/dL Est GFR ( Amer) 55.6 (>60) Est GFR (Non-Af Amer) 45.9 (>60) BUN/Creatinine Ratio 30.2 H (8-20) Glucose 268 H (70-100) mg/dL Lactic Acid 1.7 (0.5-2.0) mmol/L Calcium 9.8 (8.6-10.3) mg/dL Total Bilirubin 0.40 (0.2-1.0) mg/dL AST 19 (13-39) U/L ALT 7 (7-52) U/L Alkaline Phosphatase 90 (34-104) U/L C-Reactive Protein 43.27 H (<8.01) mg/L Total Protein 8.0 (6.4-8.9) g/dL Albumin 4.2 (3.2-5.2) g/dL Globulin 3.8 (2-4) g/dL Albumin/Globulin Ratio 1.1 (1-3) 08/02/18 Range/Units 19:19 WBC 11.3 H (3.5-10.8) 10^3/uL RBC 3.72 (3.70-4.87) 10^6 /uL Hgb 10.4 L (12.0-16.0) g/dL Hct 32 L (35-47) % MCV 87 (80-97) fL MCH 28 (27-31) pg MCHC 32 (31-36) g/dL RDW 17 H (10.5-15) % Plt Count 184 (150-450) 10^3/uL MPV 9.5 (7.4-10.4) fL Neut % (Auto) 75.3 % Lymph % (Auto) 13.2 % [place] % (Auto) 5.1 % Eos % (Auto) 5.4 % Baso % (Auto) 1.0 % Absolute Neuts (auto) 8.5 H (1.5-7.7) 10^3/ul Absolute Lymphs (auto) 1.5 (1.0-4.8) 10^3/ul Absolute Monos (auto) 0.6 (0-0.8) 10^3/ul Absolute Eos (auto) 0.6 (0-0.6) 10^3/ul Absolute Basos (auto) 0.1 (0-0.2) 10^3/ul Absolute Nucleated RBC 0.0 10^3/ul Nucleated RBC % 0.1 INR (Anticoag Therapy) (0.82-1.09) Sodium (135-145) mmol/L Potassium (3.5-5.0) mmol/L Chloride (101-111) mmol/L Carbon Dioxide (22-32) mmol/L Anion Gap (2-11) mmol/L BUN (6-24) mg/dL Creatinine (0.51-0.95) mg/dL Est GFR ( Amer) (>60) Est GFR (Non-Af Amer) (>60) BUN/Creatinine Ratio (8-20) Glucose (70-100) mg/dL Lactic Acid (0.5-2.0) mmol/L Calcium (8.6-10.3) mg/dL Total Bilirubin (0.2-1.0) mg/dL AST (13-39) U/L ALT (7-52) U/L Alkaline Phosphatase (34-104) U/L C-Reactive Protein (<8.01) mg/L Total Protein (6.4-8.9) g/dL Albumin (3.2-5.2) g/dL Globulin (2-4) g/dL Albumin/Globulin Ratio (1-3) Microbiology and Other Data: Microbiology 08/02/18 20:13 Skin and Soft Tissue MRSA/MSSA (PCR - Final Knee Left Mrsa Negative S.aureus Negative Gram Stain - Final Wound Culture - Preliminary Pseudomonas Aeruginosa Escherichia Coli 08/02/18 20:13 Skin and Soft Tissue MRSA/MSSA (PCR - Final Leg Left Mrsa Negative S.aureus Negative Gram Stain - Final Wound Culture - Preliminary Pseudomonas Aeruginosa Escherichia Coli 08/03/18 04:35 Nasal Screen MRSA (PCR) - Final Nasal Mrsa Not Detected Assess/Plan/Problems-Billing Assessment: 72 yo F with h/o CABG 04/15/18, vein grafted from left LE with chronic LE's edema and nonhealing wound on left LE - Patient Problems (1) Cellulitis Comment: pt has a significant deep wound on medial aspect on left knee. Appreciate wound care consult Pt has a vascular clip noted in her blow the knee wound on left leg medially, likely placed during vein grafting at CABG Cx positive for Pseudomonas and E.coli. Small area of surrouding cellulitis present. cont Zosyn. PAD noted s/p angioplasty of SFA by Dr. Sharma 08/04/18 (2) CAD (coronary artery disease) Comment: -s/p CABG 04/15/18 (3) Diabetes mellitus, type II Comment: -Continue sliding scale -holding glipizide, jardiance (4) Hypertension Comment: -Continue Losartan,lopressor (5) Chronic diastolic (congestive) heart failure Comment: cont Bumex, euvolemic daily weights EF 55% in 05/2018 (6) CKD stage 3 due to type 2 diabetes mellitus Comment: creat close to baseline (7) Peripheral arterial disease Comment: s/p SFA angioplasty by Dr. Sharma on 08/04/18 cont ASA, started Plavix (8) DVT prophylaxis Comment: -Heparin SQ Status and Disposition: inpatient
--- NOTE | 2018-08-04 16:55 | PN ---
Progress Note - Progress Note Date of Service: 08/04/18 SOAP: Subjective: Patient with complaints of baseline back pain. No right groin pain. No SOB. No nausea. Denies left thigh or pelvic pain. Objective: Selected Entries 08/04/18 11:14 Temperature 97.4 F Temperature Temporal Artery Source Scan Pulse Rate 64 Respiratory 16 Rate Blood Pressure 111/49 (mmHg) Blood Pressure 69 Mean O2 Sat by Pulse 96 Oximetry Patient on Room Yes Air NAD, AAO x 3 Right groin is soft, nontender "Ooze" at dressing 1+ palpable pulse at right [employer]ACH[employer], left pop and left [employer] Abdomen and pelvis is soft, NT Assessment: 72 YOF s/p Pelvic and LLE arteriography, revascularization of occluded left SFA followed by atherectomy and drug coated balloon angioplasty. 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 Plan: 1. Bedrest until 1800 right right leg straight. 2. Arteriotomy site with "ooze", no signs of arterial bleed. Pressure to right groin x 15 minutes. 3. Plavix 75 mg PO and ASA 81 mg daily.
[2018-08-04] MEDS: Docusate CAP* 100 MG PO SCH (22:35)
[2018-08-04] MEDS: Neomycin/Polym/Bacit TOP OINT* 15 GM TOPICAL SCH (22:43)
[2018-08-05] MEDS: Hydrocodone/Acetamin 10/325 1 TAB PO PRN ×3 (00:03→20:44)
[2018-08-05] MEDS: HYDROmorphone INJ1* 1 MG/ML SYRINGE IV SLOW PU PRN ×5 (00:04→18:45)
[2018-08-05] MEDS: Piperacillin/Tazobac ADVAN(*) 3.375 GM in NS 0.9% 100 ML* 100 ML IVPB SCH ×3 (06:09→20:24)
[2018-08-05] MEDS: Pregabalin CAP(*) 50 MG PO SCH ×3 (06:12→20:43)
[2018-08-05] MEDS: Heparin VIAL(*) 5000 UNITS/ML VIAL (FIVE THOUSAND) SUBCUT SCH ×3 (06:15→20:43)
[2018-08-05 07:18] LABS: Vancomycin Trough 6.4 mcg/mL
[2018-08-05] MEDS ORDERED: Vancomycin Trough Check NOTE FOLLOW UP ONE (07:30)
[2018-08-05] MEDS: Bumetanide TAB* 2 MG PO SCH (07:49)
[2018-08-05] MEDS: Clopidogrel TAB* 75 MG PO SCH (07:49)
[2018-08-05] MEDS: Losartan TAB* 25 MG PO SCH (07:49)
[2018-08-05] MEDS: Atorvastatin* 40 MG TAB PO SCH (07:49)
[2018-08-05] MEDS: Metoprolol Tartrate TAB* 25 MG PO SCH (07:50)
[2018-08-05] MEDS: Pramipexole TAB* 0.5 MG PO SCH ×3 (07:55→19:48)
[2018-08-05] MEDS: Aspirin EC TAB* 81 MG TAB.EC PO SCH (09:00)
[2018-08-05] MEDS: Neomycin/Polym/Bacit TOP OINT* 15 GM TOPICAL SCH ×2 (09:22→20:58)
[2018-08-05] MEDS: Insulin LISPRO* 1 UNITS UNIT SUBCUT SCH ×4 (09:22→22:41)
[2018-08-05 11:12] LABS: Calcium 8.4 mg/dL (8.6-10.3); Potassium 4.1 mmol/L (3.5-5.0)
[2018-08-05 11:18] LABS: BUN/Creatinine Ratio 23.1 (8-20); EGFR African American 52.9 (>60); EGFR Non-African American 43.7 (>60)
--- NOTE | 2018-08-05 12:19 | CONS ---
CONSULTATION REPORT: DATE OF CONSULT: 08/05/18 REQUESTING PHYSICIAN: Dr. Bartlett. CONSULTING SERVICE: Infectious disease. REASON FOR CONSULTATION: Left leg infection. IMPRESSION: 1. Cellulitis of the left lower leg and nonpressure chronic left leg ulcer at her left leg vein graft harvest site, superficial wound culture growing pseudomonas and E. coli. There is no information on the pseudomonas yet, the E. coli is pansensitive. 2. CABG in 2019 with left leg vein harvest, the sternal site is well healed. 3. Morbid obesity. RECOMMENDATION: Stop the vancomycin. Continue Zosyn for the leg cellulitis, await the pseudomonas susceptibility data. Dr. Heck plans on further debridement and removal of a vascular clip. HISTORY OF PRESENT ILLNESS: This is a 72-year-old woman with coronary artery disease, recent CABG and vascular disease near the left leg infection. The vein graft harvest site on the left lower leg has not healed since the surgery in April 2018. She was here in May 2018 with the cellulitis and myositis by MRI, was treated with clindamycin with improvement, had been following up with the wound clinic and then the wound started getting worse, more red. She came into the hospital on 08/02/18, left leg swelling, pain, redness, and serous drainage. Wound culture was taken, the results as above. She was seen by Dr. Sharma who performed a occluded SFA revascularization and angioplasty. Her legs have been better since she has gotten here, she has been keeping it elevated more, there is less drainage. She has no fevers, chills, sweats. Appetite is good. PAST MEDICAL HISTORY: 1. Coronary disease, status post CABG in April 2018. 2. Diabetes mellitus. 3. Basal cell carcinoma on the right hand, which was excised. 4. Chronic hypoxic respiratory failure. 5. Hypertension. 6. Obesity. 7. Chronic pain. 8. Restless leg. 9. Peripheral neuropathy. 10. Peripheral vascular disease. MEDICATIONS: 1. Aspirin. 2. Lipitor. 3. Bumex. 4. Plavix. 5. Heparin subcutaneous injection. 6. Vicodin as needed. 7. Dilaudid as needed. 8. Losartan. 9. Metoprolol, 10. Pramipexole. 11. Pregabalin. 12. Zosyn 3.375 g every 8 hours. ALLERGIES: KEFLEX caused hives, IODINE, ROFECOXIB, GLUCOSAMINE, IBUPROFEN, METFORMIN, ROPINIROLE. FAMILY HISTORY: No recurrent infections. SOCIAL HISTORY: She is a past smoker. No alcohol or IV drug use. Lives by herself, does have visiting nurse. REVIEW OF SYSTEMS: All negative as noted above to 14 point review. PHYSICAL EXAM: Vital Signs: Temperature 36.3, heart rate is 70, respiratory rate 16, blood pressure 115/60, oxygen saturation 98% on room air. In general, she is awake, not in distress. Neurologic: She is oriented x3. Follows all commands. She has decreased sensation to light touch of both feet. HEENT: There is no conjunctival hemorrhage. Oropharynx without lesions. Neck: Supple without mass. Heart: Regular rate and rhythm without murmurs, rubs or gallops. Lungs: Clear to auscultation bilaterally. Abdomen: Soft, nontender , nondistended. There is bowel sound present. Skin: There is no rash or splinter hemorrhage. The left lower extremity vein graft harvest site. There is a linear wound with surrounding mild erythema and there is a metallic foreign body in the more distal aspect. There is no crepitus or fluctuance. Musculoskeletal: There is no spine tenderness to palpation or left knee effusion. DIAGNOSTIC STUDIES/LAB DATA: White blood cell count 13.5, hemoglobin 9.5, platelets 173, creatinine is 1.3 yesterday. Please see impressions and recommendations outlined above, which I have discussed with Dr. Bartlett. Thank you for asking me to see Ms. Yo in consultation. [id number]/[facility] #: [id number] [facility]
--- NOTE | 2018-08-05 12:33 | PN ---
Subjective Date of Service: 08/05/18 Interval History: Pt feels well. Satisfied that the left leg feels better and hurts less Family History: Unchanged from Admission Social History: Unchanged from Admission Past Medical History: Unchanged from Admission Objective Active Medications: Hydrocodone Bitart/Acetaminophen ([place] 10/325 (Nf)) 1 tab PO Q4H PRN PRN Reason: PAIN Last Admin: 08/05/18 00:03 Dose: 1 tab Aspirin (Aspirin Ec Tab*) 81 mg PO DAILY [facility] Last Admin: 08/05/18 09:00 Dose: 81 mg Atorvastatin Calcium (Lipitor*) 40 mg PO DAILY [facility] Last Admin: 08/05/18 07:49 Dose: 40 mg Bumetanide (Bumex Tab*) 2 mg PO DAILY [facility] Last Admin: 08/05/18 07:49 Dose: 2 mg Clopidogrel Bisulfate (Plavix Tab*) 75 mg PO DAILY [facility] Last Admin: 08/05/18 07:49 Dose: 75 mg Dextrose (D50w Syringe 50 Ml*) 12.5 gm IV PUSH .FOR FS < 60 - SS PRN PRN Reason: FS < 60 Docusate Sodium (Colace Cap*) 100 mg PO BEDTIME [facility] Last Admin: 08/04/18 22:35 Dose: 100 mg Heparin Sodium (Porcine) (Heparin Vial(*)) 5,000 units SUBCUT Q8HR [facility] Last Admin: 08/05/18 06:15 Dose: 5,000 units Hydromorphone HCl (Dilaudid Inj1s*) 1 mg IV SLOW PU Q3H PRN PRN Reason: PAIN Last Admin: 08/05/18 09:19 Dose: 1 mg Piperacillin Sod/Tazobactam (Sod 3.375 gm/ Sodium Chloride) 100 mls @ 25 mls/ hr IVPB Q8H [facility] Last Admin: 08/05/18 06:09 Dose: 25 mls/hr Insulin Human Lispro (Humalog*) 0 units SUBCUT ACHS [facility]; Protocol Last Admin: 08/05/18 09:22 Dose: 6 units Losartan Potassium (Cozaar Tab*) 25 mg PO DAILY [facility] Last Admin: 08/05/18 07:49 Dose: 25 mg Metoprolol Tartrate (Lopressor Tab*) 12.5 mg PO DAILY [facility] Last Admin: 08/05/18 07:50 Dose: 12.5 mg Neomycin/Polymyxin/Bacitracin (Neosporin Top Oint Tube*) 1 applic TOPICAL BID [facility] Last Admin: 08/05/18 09:22 Dose: Not Given Ondansetron HCl (Zofran Inj*) 4 mg IV Q6H PRN PRN Reason: NAUSEA/VOMITING Last Admin: 08/03/18 04:01 Dose: 4 mg Pharmacy Consult (Zosyn Per Pharmacy*) 1 note FOLLOW UP .ZOSYN PER PHARMACY [facility] Pramipexole Dihydrochloride (Mirapex Tab*) 1 mg PO TID [facility] Last Admin: 08/05/18 07:55 Dose: 1 mg Pregabalin (Lyrica Cap(*)) 150 mg PO Q8HR [facility] Last Admin: 08/05/18 06:12 Dose: 150 mg Vital Signs - 8 hr 08/05/18 08/05/18 08/05/18 06:10 06:12 07:37 Temperature 97.3 F Pulse Rate 69 Respiratory 18 18 16 Rate Blood Pressure 115/58 (mmHg) O2 Sat by Pulse 98 Oximetry 08/05/18 08/05/18 08/05/18 08:00 08:17 09:19 Temperature Pulse Rate Respiratory 16 18 18 Rate Blood Pressure (mmHg) O2 Sat by Pulse Oximetry Oxygen Devices in Use Now: None Appearance: 72 yo F in nAD, aAOx3 Eyes: No Scleral Icterus, PERRLA Ears/Nose/Mouth/Throat: NL Teeth, Lips, Gums, Mucous Membranes Moist Neck: NL Appearance and Movements; NL JVP, Trachea Midline Respiratory: Symmetrical Chest Expansion and Respiratory Effort, Clear to Auscultation Cardiovascular: NL Sounds; No Murmurs; No JVD, RRR Abdominal: NL Sounds; No Tenderness; No Distention Lymphatic: No Cervical Adenopathy Extremities: No Clubbing, Cyanosis, - - +1 pitting edeam b/l LE's Skin: No Nodules or Sclerosis, - - left medial knee, calf wounds unchanged Neurological: Alert and Oriented x 3, NL Muscle Strength and Tone Result Diagrams: 08/04/18 07:02 08/05/18 05:54 Additional Lab and Data: Lab Results 08/02/18 08/02/18 08/02/18 Range/Units 19:19 19:19 19:19 WBC (3.5-10.8) 10^3/uL RBC (3.70-4.87) 10^6 /uL Hgb (12.0-16.0) g/dL Hct (35-47) % MCV (80-97) fL MCH (27-31) pg MCHC (31-36) g/dL RDW (10.5-15) % Plt Count (150-450) 10^3/uL MPV (7.4-10.4) fL Neut % (Auto) % Lymph % (Auto) % [place] % (Auto) % Eos % (Auto) % Baso % (Auto) % Absolute Neuts (auto) (1.5-7.7) 10^3/ul Absolute Lymphs (auto) (1.0-4.8) 10^3/ul Absolute Monos (auto) (0-0.8) 10^3/ul Absolute Eos (auto) (0-0.6) 10^3/ul Absolute Basos (auto) (0-0.2) 10^3/ul Absolute Nucleated RBC 10^3/ul Nucleated RBC % INR (Anticoag Therapy) 1.01 (0.82-1.09) Sodium 137 (135-145) mmol/L Potassium 3.6 (3.5-5.0) mmol/L Chloride 96 L (101-111) mmol/L Carbon Dioxide 32 (22-32) mmol/L Anion Gap 9 (2-11) mmol/L BUN 35 H (6-24) mg/dL Creatinine 1.16 H (0.51-0.95) mg/dL Est GFR ( Amer) 55.6 (>60) Est GFR (Non-Af Amer) 45.9 (>60) BUN/Creatinine Ratio 30.2 H (8-20) Glucose 268 H (70-100) mg/dL Lactic Acid 1.7 (0.5-2.0) mmol/L Calcium 9.8 (8.6-10.3) mg/dL Total Bilirubin 0.40 (0.2-1.0) mg/dL AST 19 (13-39) U/L ALT 7 (7-52) U/L Alkaline Phosphatase 90 (34-104) U/L C-Reactive Protein 43.27 H (<8.01) mg/L Total Protein 8.0 (6.4-8.9) g/dL Albumin 4.2 (3.2-5.2) g/dL Globulin 3.8 (2-4) g/dL Albumin/Globulin Ratio 1.1 (1-3) 08/02/18 Range/Units 19:19 WBC 11.3 H (3.5-10.8) 10^3/uL RBC 3.72 (3.70-4.87) 10^6 /uL Hgb 10.4 L (12.0-16.0) g/dL Hct 32 L (35-47) % MCV 87 (80-97) fL MCH 28 (27-31) pg MCHC 32 (31-36) g/dL RDW 17 H (10.5-15) % Plt Count 184 (150-450) 10^3/uL MPV 9.5 (7.4-10.4) fL Neut % (Auto) 75.3 % Lymph % (Auto) 13.2 % [place] % (Auto) 5.1 % Eos % (Auto) 5.4 % Baso % (Auto) 1.0 % Absolute Neuts (auto) 8.5 H (1.5-7.7) 10^3/ul Absolute Lymphs (auto) 1.5 (1.0-4.8) 10^3/ul Absolute Monos (auto) 0.6 (0-0.8) 10^3/ul Absolute Eos (auto) 0.6 (0-0.6) 10^3/ul Absolute Basos (auto) 0.1 (0-0.2) 10^3/ul Absolute Nucleated RBC 0.0 10^3/ul Nucleated RBC % 0.1 INR (Anticoag Therapy) (0.82-1.09) Sodium (135-145) mmol/L Potassium (3.5-5.0) mmol/L Chloride (101-111) mmol/L Carbon Dioxide (22-32) mmol/L Anion Gap (2-11) mmol/L BUN (6-24) mg/dL Creatinine (0.51-0.95) mg/dL Est GFR ( Amer) (>60) Est GFR (Non-Af Amer) (>60) BUN/Creatinine Ratio (8-20) Glucose (70-100) mg/dL Lactic Acid (0.5-2.0) mmol/L Calcium (8.6-10.3) mg/dL Total Bilirubin (0.2-1.0) mg/dL AST (13-39) U/L ALT (7-52) U/L Alkaline Phosphatase (34-104) U/L C-Reactive Protein (<8.01) mg/L Total Protein (6.4-8.9) g/dL Albumin (3.2-5.2) g/dL Globulin (2-4) g/dL Albumin/Globulin Ratio (1-3) Microbiology and Other Data: Microbiology 08/02/18 20:13 Skin and Soft Tissue MRSA/MSSA (PCR - Final Knee Left Mrsa Negative S.aureus Negative Gram Stain - Final Wound Culture - Preliminary Pseudomonas Aeruginosa Escherichia Coli 08/02/18 20:13 Skin and Soft Tissue MRSA/MSSA (PCR - Final Leg Left Mrsa Negative S.aureus Negative Gram Stain - Final Wound Culture - Preliminary Pseudomonas Aeruginosa Escherichia Coli 08/03/18 04:35 Nasal Screen MRSA (PCR) - Final Nasal Mrsa Not Detected Assess/Plan/Problems-Billing Assessment: 72 yo F with h/o CABG 04/15/18, vein grafted from left LE with chronic LE's edema and nonhealing wound on left LE - Patient Problems (1) Cellulitis Comment: pt has a significant deep wound on medial aspect on left knee. Appreciate wound care consult, Dr. Heck's imput Pt has a vascular clip noted in her blow the knee wound on left leg medially, likely placed during vein grafting at CABG, as per d/w surgery-they will attempt to remove it today Cx positive for Pseudomonas and E.coli. Small area of surrouding cellulitis present. cont Zosyn. ID consulted PAD noted s/p angioplasty of SFA by Dr. Sharma 08/04/18 (2) CAD (coronary artery disease) Comment: -s/p CABG 04/15/18 (3) Diabetes mellitus, type II Comment: -Continue sliding scale -holding glipizide, jardiance (4) Hypertension Comment: -Continue Losartan,lopressor (5) Chronic diastolic (congestive) heart failure Comment: cont Bumex, euvolemic daily weights EF 55% in 05/2018 (6) CKD stage 3 due to type 2 diabetes mellitus Comment: creat close to baseline (7) Peripheral arterial disease Comment: s/p SFA angioplasty by Dr. Sharma on 08/04/18 cont ASA (indefinetely), started Plavix (cont for 6 months total) (8) DVT prophylaxis Comment: -Heparin SQ Status and Disposition: inpatient
--- NOTE | 2018-08-05 12:33 | PN ---
Progress Note - Progress Note Date of Service: 08/05/18 SOAP: Subjective: "My leg is warm and doesn't hurt!" Denies pain at the right CF arteriotomy site, pelvis or left leg. Specifically she reports left leg "rest pain" has resolved. Objective: Selected Entries 08/05/18 08/05/18 07:37 09:19 Temperature 97.3 F Temperature Oral Source Pulse Rate 69 Respiratory 18 Rate Blood Pressure 115/58 (mmHg) Blood Pressure 72 Mean O2 Sat by Pulse 98 Oximetry Patient on Room Yes Air NAD, AAO x 3 Sitting in chair eating ice cream Right groin is soft, nontender Dressing with dry blood No low abdominal tenderness with palpation 1+ pop pulse Left lower leg appears pink and is warm to touch Assessment: 72 YOF POD #1 s/p revascularization, atherectomy and drug-coated balloon angioplasty of occluded left SFA. Plan: 1. Change dressing to right groin. 2. Continue high quality wound care. 3. Plavix 75 mg x 6 months and ASA 81 mg PO daily for life.
--- NOTE | 2018-08-05 17:53 | PN ---
Progress Note - Progress Note Date of Service: 08/05/18 Note: Surgery Progress (late entry; patient seen ~ 12:00) S: On Zosyn; states that her left leg feels better since the angioplasty; still has some pain around the open wounds. Dr. Sharma also in. O: Vital Signs - 8 hr 08/05/18 08/05/18 08/05/18 14:37 15:15 16:44 Temperature 97.6 F Pulse Rate 81 Respiratory 17 16 16 Rate Blood Pressure 138/61 (mmHg) O2 Sat by Pulse 97 Oximetry 08/05/18 08/05/18 08/05/18 18:45 19:27 19:45 Temperature 98.1 F Pulse Rate 75 Respiratory 17 16 16 Rate Blood Pressure 137/60 (mmHg) O2 Sat by Pulse 96 Oximetry 08/05/18 08/05/18 08/05/18 19:46 20:43 20:44 Temperature Pulse Rate Respiratory 17 16 16 Rate Blood Pressure (mmHg) O2 Sat by Pulse Oximetry 08/05/18 20:59 Temperature Pulse Rate Respiratory 16 Rate Blood Pressure (mmHg) O2 Sat by Pulse Oximetry LLE wounds: both generally clean w/ good granulation base forming; small amounts of necrotic tissue (< 5-10% overall). Proximal wound ~ 5 x 3.5 x 1.5 cm ; distal wound ~ 4.5 x 2.5 x 1 cm. Vascular clips intact in base of distal wound. Surrounding skin at various stages of resolving cellulitis- some dull erythema and scaling. No threatened areas. Some tenderness to palp when changing dsgs, but tolerated. Saline moist dressings replaced. A: LLE wound infection and dehiscence, improving, now w/ improved inflow s/p SFA angioplasty P: cont wound care, IV abx
[2018-08-05] MEDS: Docusate CAP* 100 MG PO SCH (19:48)
[2018-08-05] MEDS: oxyCODONE SR TAB(*) 10 MG TAB.SR PO SCH (22:41)
[2018-08-06] MEDS: Hydrocodone/Acetamin 10/325 1 TAB PO PRN ×2 (03:20→10:05)
[2018-08-06] MEDS: Piperacillin/Tazobac ADVAN(*) 3.375 GM in NS 0.9% 100 ML* 100 ML IVPB SCH ×4 (04:30→20:19)
[2018-08-06] MEDS: Heparin VIAL(*) 5000 UNITS/ML VIAL (FIVE THOUSAND) SUBCUT SCH ×3 (05:01→21:19)
[2018-08-06] MEDS: Pregabalin CAP(*) 50 MG PO SCH ×3 (05:02→21:17)
[2018-08-06] MEDS: Insulin LISPRO* 1 UNITS UNIT SUBCUT SCH ×4 (09:11→21:19)
[2018-08-06] MEDS: Clopidogrel TAB* 75 MG PO SCH (09:12)
[2018-08-06] MEDS: Atorvastatin* 40 MG TAB PO SCH (09:12)
[2018-08-06] MEDS: Pramipexole TAB* 0.5 MG PO SCH ×3 (09:12→21:17)
[2018-08-06] MEDS: Bumetanide TAB* 2 MG PO SCH (09:12)
[2018-08-06] MEDS: Losartan TAB* 25 MG PO SCH (09:12)
[2018-08-06] MEDS: Metoprolol Tartrate TAB* 25 MG PO SCH (09:12)
[2018-08-06] MEDS: Aspirin EC TAB* 81 MG TAB.EC PO SCH (09:12)
[2018-08-06] MEDS: oxyCODONE SR TAB(*) 10 MG TAB.SR PO SCH ×2 (09:12→21:18)
[2018-08-06] MEDS: Neomycin/Polym/Bacit TOP OINT* 15 GM TOPICAL SCH ×3 (09:13→21:39)
--- NOTE | 2018-08-06 10:24 | PN ---
Progress Note - Progress Note Date of Service: 08/06/18 SOAP: Subjective: Still with intermittent discomfort in both legs Objective: Temp Pulse Resp BP Pulse Ox 98.0 F 69 20 130/61 94 08/06/18 07:30 08/06/18 07:30 08/06/18 10:05 08/06/18 07:30 08/06/18 07:30 PEX: Left leg upper calf wounds less erythema-minimal SG drainage. Areas of non- viable tissue debrided at bedside Repacked with gauze. Hemoclips exposed in lower wound removed Cultures noted Assessment: Non-healing vein harvest site left leg with cellulitis PVD s/p revascularization Plan: Continue present wound care-will eventually place wound vac and follow in wound clinic IV abx per ID Elevation Discussed with patient
[2018-08-06] MEDS: Morphine INJ* 2 MG/ML 1 ML SYRINGE (TWO MG - NEW SYRINGE VERSION) IV PRN ×3 (10:49→19:28)
--- NOTE | 2018-08-06 10:59 | PN ---
Progress Note - Progress Note Date of Service: 08/06/18 SOAP: Subjective: CC: Left left cellulitis with non healing wound HPI: Ms. Yo is a 72 yo female with PMH significant for CAD s/p CABG 04/2018, DM2, HTN, chronic hypoxic respiratory failure, obesity, chronic pain, RLS, peripheral neuropathy, and PVD. Denies fever, chills, shortness of breath, chest discomfort, nausea, vomiting, or diarrhea. Reports 13 constant left LE pain. Objective: Vital Signs 08/06/18 08/06/18 08/06/18 03:20 03:27 05:02 Temperature 98.3 F Pulse Rate 75 Respiratory 18 18 18 Rate Blood Pressure 149/99 (mmHg) O2 Sat by Pulse 96 Oximetry 08/06/18 08/06/18 08/06/18 05:20 07:26 07:30 Temperature 98.0 F Pulse Rate 69 Respiratory 16 16 14 Rate Blood Pressure 130/61 (mmHg) O2 Sat by Pulse 94 Oximetry Physical Exam: General: NAD, sitting up in a chair Neurological: Alert and Oriented HEENT: No thrush, Moist MM Cardiovascular: Heart rate regular Respiratory: Lung sounds clear Abdominal: Bowel sounds present; ABD soft, non tender and non distended Musculoskeletal: No tenderness at the left knee Skin: Dressing to the left LE. Below the dressing with slight erythema and dry flaky skin. Laboratory Results - last 24 hr 08/05/18 08/05/18 08/05/18 05:54 11:31 17:52 Sodium 138 Potassium 4.1 Chloride 103 Carbon Dioxide 27 Anion Gap 8 BUN 28 H Creatinine 1.21 H Est GFR ( Amer) 52.9 Est GFR (Non-Af Amer) 43.7 BUN/Creatinine Ratio 23.1 H Glucose 262 H POC Glucose (mg/dL) 245 H 266 H Calcium 8.4 L Microbiology 08/02/18 20:13 Skin and Soft Tissue MRSA/MSSA (PCR - Final Leg Left Mrsa Negative S.aureus Negative Gram Stain - Final Wound Culture - Preliminary Pseudomonas Aeruginosa Escherichia Coli Enterococcus Faecalis 08/02/18 19:19 Aerobic Blood Culture - Preliminary Blood Venous No Growth Day 3 Anaerobic Blood Culture - Preliminary No Growth Day 3 08/02/18 19:19 Aerobic Blood Culture - Preliminary Blood Venous No Growth Day 3 Anaerobic Blood Culture - Preliminary No Growth Day 3 08/02/18 20:13 Skin and Soft Tissue MRSA/MSSA (PCR - Final Knee Left Mrsa Negative S.aureus Negative Gram Stain - Final Wound Culture - Final Pseudomonas Aeruginosa Escherichia Coli Normal Melania 08/03/18 04:35 Nasal Screen MRSA (PCR) - Final Nasal Mrsa Not Detected Assessment: 1. Cellulitis of the left LE and nonpressure chronic left LE wound. Chronic wound at the left LE vein harvest site with wound culture growing pseudomonas aeruginosa, e. coli, and enterococcus faecalis. Sensitivities to pseudomonas pending at this time. Vascular clips were removed today by Dr. Heck. Blood cultures with no growth on day 3. Afebrile, and continues to have leukocytosis. 2. CABG. 04/2018 with left LE vein harvest, and a chronic non healing wound at the vein harvest site. Sternal site is well healed. 3. Morbid Obesity. BMI 38.8 4. DM2. 5. PVD. S/P revascularization and angioplasty of the occluded SFA by Dr. Sharma on 08/04/18. Plan: Continue Zosyn until further sensitivities are back.
--- NOTE | 2018-08-06 12:23 | PN ---
Subjective Date of Service: 08/06/18 Interval History: Pt c/o wound in he left leg pain after surgical dressing changes today. Pt refuses to have the leg unwrapped again now . Family History: Unchanged from Admission Social History: Unchanged from Admission Past Medical History: Unchanged from Admission Objective Active Medications: Hydrocodone Bitart/Acetaminophen ([place] 10/325 (Nf)) 1 tab PO Q4H PRN PRN Reason: PAIN Last Admin: 08/06/18 10:05 Dose: 1 tab Aspirin (Aspirin Ec Tab*) 81 mg PO DAILY [facility] Last Admin: 08/06/18 09:12 Dose: 81 mg Atorvastatin Calcium (Lipitor*) 40 mg PO DAILY [facility] Last Admin: 08/06/18 09:12 Dose: 40 mg Bumetanide (Bumex Tab*) 2 mg PO DAILY [facility] Last Admin: 08/06/18 09:12 Dose: 2 mg Clopidogrel Bisulfate (Plavix Tab*) 75 mg PO DAILY [facility] Last Admin: 08/06/18 09:12 Dose: 75 mg Dextrose (D50w Syringe 50 Ml*) 12.5 gm IV PUSH .FOR FS < 60 - SS PRN PRN Reason: FS < 60 Docusate Sodium (Colace Cap*) 100 mg PO BEDTIME [facility] Last Admin: 08/05/18 19:48 Dose: Not Given Heparin Sodium (Porcine) (Heparin Vial(*)) 5,000 units SUBCUT Q8HR [facility] Last Admin: 08/06/18 05:01 Dose: 5,000 units Hydromorphone HCl (Dilaudid Inj1s*) 1 mg IV SLOW PU Q3H PRN PRN Reason: PAIN Last Admin: 08/05/18 18:45 Dose: 1 mg Piperacillin Sod/Tazobactam (Sod 3.375 gm/ Sodium Chloride) 100 mls @ 25 mls/ hr IVPB Q8H [facility] Last Admin: 08/06/18 11:59 Dose: 25 mls/hr Insulin Human Lispro (Humalog*) 0 units SUBCUT ACHS [facility]; Protocol Last Admin: 08/06/18 11:59 Dose: 6 units Losartan Potassium (Cozaar Tab*) 25 mg PO DAILY [facility] Last Admin: 08/06/18 09:12 Dose: 25 mg Metoprolol Tartrate (Lopressor Tab*) 12.5 mg PO DAILY [facility] Last Admin: 08/06/18 09:12 Dose: 12.5 mg Morphine Sulfate (Morphine Inj (Syringe))*) 1 mg IV Q4H PRN PRN Reason: PAIN Last Admin: 08/06/18 10:49 Dose: 1 mg Neomycin/Polymyxin/Bacitracin (Neosporin Top Oint Tube*) 1 applic TOPICAL BID [facility] Last Admin: 08/06/18 09:13 Dose: Not Given Ondansetron HCl (Zofran Inj*) 4 mg IV Q6H PRN PRN Reason: NAUSEA/VOMITING Last Admin: 08/03/18 04:01 Dose: 4 mg Oxycodone HCl (Oxycontin(*)) 10 mg PO Q12HR [facility] Last Admin: 08/06/18 09:12 Dose: 10 mg Pharmacy Consult (Zosyn Per Pharmacy*) 1 note FOLLOW UP .ZOSYN PER PHARMACY [facility] Pramipexole Dihydrochloride (Mirapex Tab*) 1 mg PO TID [facility] Last Admin: 08/06/18 09:12 Dose: 1 mg Pregabalin (Lyrica Cap(*)) 150 mg PO Q8HR [facility] Last Admin: 08/06/18 05:02 Dose: 150 mg Vital Signs - 8 hr 08/06/18 08/06/18 08/06/18 05:02 05:20 07:26 Temperature Pulse Rate Respiratory 18 16 16 Rate Blood Pressure (mmHg) O2 Sat by Pulse Oximetry 08/06/18 08/06/18 08/06/18 07:30 07:43 09:12 Temperature 98.0 F Pulse Rate 69 Respiratory 14 20 24 Rate Blood Pressure 130/61 (mmHg) O2 Sat by Pulse 94 Oximetry 08/06/18 08/06/18 08/06/18 09:59 10:05 10:43 Temperature Pulse Rate Respiratory 16 20 16 Rate Blood Pressure (mmHg) O2 Sat by Pulse Oximetry 08/06/18 08/06/18 10:49 11:04 Temperature 97.9 F Pulse Rate 67 Respiratory 20 16 Rate Blood Pressure 133/56 (mmHg) O2 Sat by Pulse 97 Oximetry Oxygen Devices in Use Now: None Appearance: 72 yo F in nAD, aAOx3 Eyes: No Scleral Icterus, PERRLA Ears/Nose/Mouth/Throat: NL Teeth, Lips, Gums, Mucous Membranes Moist Neck: NL Appearance and Movements; NL JVP, Trachea Midline Respiratory: Symmetrical Chest Expansion and Respiratory Effort, Clear to Auscultation Cardiovascular: NL Sounds; No Murmurs; No JVD, RRR Abdominal: NL Sounds; No Tenderness; No Distention Lymphatic: No Cervical Adenopathy Extremities: No Clubbing, Cyanosis, - - +1 pitting edema b/l , left leg wound not inspected Skin: No Nodules or Sclerosis Neurological: Alert and Oriented x 3, NL Muscle Strength and Tone Result Diagrams: 08/04/18 07:02 08/05/18 05:54 Additional Lab and Data: Lab Results 08/02/18 08/02/18 08/02/18 Range/Units 19:19 19:19 19:19 WBC (3.5-10.8) 10^3/uL RBC (3.70-4.87) 10^6 /uL Hgb (12.0-16.0) g/dL Hct (35-47) % MCV (80-97) fL MCH (27-31) pg MCHC (31-36) g/dL RDW (10.5-15) % Plt Count (150-450) 10^3/uL MPV (7.4-10.4) fL Neut % (Auto) % Lymph % (Auto) % [place] % (Auto) % Eos % (Auto) % Baso % (Auto) % Absolute Neuts (auto) (1.5-7.7) 10^3/ul Absolute Lymphs (auto) (1.0-4.8) 10^3/ul Absolute Monos (auto) (0-0.8) 10^3/ul Absolute Eos (auto) (0-0.6) 10^3/ul Absolute Basos (auto) (0-0.2) 10^3/ul Absolute Nucleated RBC 10^3/ul Nucleated RBC % INR (Anticoag Therapy) 1.01 (0.82-1.09) Sodium 137 (135-145) mmol/L Potassium 3.6 (3.5-5.0) mmol/L Chloride 96 L (101-111) mmol/L Carbon Dioxide 32 (22-32) mmol/L Anion Gap 9 (2-11) mmol/L BUN 35 H (6-24) mg/dL Creatinine 1.16 H (0.51-0.95) mg/dL Est GFR ( Amer) 55.6 (>60) Est GFR (Non-Af Amer) 45.9 (>60) BUN/Creatinine Ratio 30.2 H (8-20) Glucose 268 H (70-100) mg/dL Lactic Acid 1.7 (0.5-2.0) mmol/L Calcium 9.8 (8.6-10.3) mg/dL Total Bilirubin 0.40 (0.2-1.0) mg/dL AST 19 (13-39) U/L ALT 7 (7-52) U/L Alkaline Phosphatase 90 (34-104) U/L C-Reactive Protein 43.27 H (<8.01) mg/L Total Protein 8.0 (6.4-8.9) g/dL Albumin 4.2 (3.2-5.2) g/dL Globulin 3.8 (2-4) g/dL Albumin/Globulin Ratio 1.1 (1-3) / Range/Units 19:19 WBC 11.3 H (3.5-10.8) 10^3/uL RBC 3.72 (3.70-4.87) 10^6 /uL Hgb 10.4 L (12.0-16.0) g/dL Hct 32 L (35-47) % MCV 87 (80-97) fL MCH 28 (27-31) pg MCHC 32 (31-36) g/dL RDW 17 H (10.5-15) % Plt Count 184 (150-450) 10^3/uL MPV 9.5 (7.4-10.4) fL Neut % (Auto) 75.3 % Lymph % (Auto) 13.2 % [place] % (Auto) 5.1 % Eos % (Auto) 5.4 % Baso % (Auto) 1.0 % Absolute Neuts (auto) 8.5 H (1.5-7.7) 10^3/ul Absolute Lymphs (auto) 1.5 (1.0-4.8) 10^3/ul Absolute Monos (auto) 0.6 (0-0.8) 10^3/ul Absolute Eos (auto) 0.6 (0-0.6) 10^3/ul Absolute Basos (auto) 0.1 (0-0.2) 10^3/ul Absolute Nucleated RBC 0.0 10^3/ul Nucleated RBC % 0.1 INR (Anticoag Therapy) (0.82-1.09) Sodium (135-145) mmol/L Potassium (3.5-5.0) mmol/L Chloride (101-111) mmol/L Carbon Dioxide (22-32) mmol/L Anion Gap (2-11) mmol/L BUN (6-24) mg/dL Creatinine (0.51-0.95) mg/dL Est GFR ( Amer) (>60) Est GFR (Non-Af Amer) (>60) BUN/Creatinine Ratio (8-20) Glucose (70-100) mg/dL Lactic Acid (0.5-2.0) mmol/L Calcium (8.6-10.3) mg/dL Total Bilirubin (0.2-1.0) mg/dL AST (13-39) U/L ALT (7-52) U/L Alkaline Phosphatase (34-104) U/L C-Reactive Protein (<8.01) mg/L Total Protein (6.4-8.9) g/dL Albumin (3.2-5.2) g/dL Globulin (2-4) g/dL Albumin/Globulin Ratio (1-3) Microbiology and Other Data: Microbiology 08/02/18 20:13 Skin and Soft Tissue MRSA/MSSA (PCR - Final Knee Left Mrsa Negative S.aureus Negative Gram Stain - Final Wound Culture - Preliminary Pseudomonas Aeruginosa Escherichia Coli 08/02/18 20:13 Skin and Soft Tissue MRSA/MSSA (PCR - Final Leg Left Mrsa Negative S.aureus Negative Gram Stain - Final Wound Culture - Preliminary Pseudomonas Aeruginosa Escherichia Coli 08/03/18 04:35 Nasal Screen MRSA (PCR) - Final Nasal Mrsa Not Detected Assess/Plan/Problems-Billing Assessment: 72 yo F with h/o CABG 04/15/18, vein grafted from left LE with chronic LE's edema and nonhealing wound on left LE - Patient Problems (1) Cellulitis Comment: pt has a significant deep wound on medial aspect on left knee. Appreciate wound care consult, Dr. Heck's input Pt had vascular clip noted in her below the knee wound on left leg medially, likely placed during vein grafting at CABG-reoved on 08/06/18 by surgery Cx positive for Pseudomonas and E.coli. Cont Zosyn. ID consulted PAD noted s/p angioplasty of SFA by Dr. Sharma 08/04/18 (2) CAD (coronary artery disease) Comment: -s/p CABG 04/15/18 (3) Diabetes mellitus, type II Comment: -Continue sliding scale -holding glipizide, jardiance (4) Hypertension Comment: -Continue Losartan,lopressor (5) Chronic diastolic (congestive) heart failure Comment: cont Bumex, euvolemic daily weights EF 55% in 05/2018 (6) CKD stage 3 due to type 2 diabetes mellitus Comment: creat close to baseline (7) Peripheral arterial disease Comment: s/p SFA angioplasty by Dr. Sharma on 08/04/18 cont ASA (indefinetely), started Plavix (cont for 6 months total) (8) DVT prophylaxis Comment: -Heparin SQ Status and Disposition: inpatient
[2018-08-06] MEDS: Docusate CAP* 100 MG PO SCH (21:18)
[2018-08-07] MEDS: Morphine INJ* 2 MG/ML 1 ML SYRINGE (TWO MG - NEW SYRINGE VERSION) IV PRN (01:14)
[2018-08-07] MEDS: Piperacillin/Tazobac ADVAN(*) 3.375 GM in NS 0.9% 100 ML* 100 ML IVPB SCH ×4 (05:49→21:37)
[2018-08-07] MEDS: Heparin VIAL(*) 5000 UNITS/ML VIAL (FIVE THOUSAND) SUBCUT SCH ×3 (05:52→21:18)
[2018-08-07] MEDS: Pregabalin CAP(*) 50 MG PO SCH ×3 (05:52→21:17)
[2018-08-07] MEDS: HYDROmorphone INJ1* 1 MG/ML SYRINGE IV SLOW PU PRN ×2 (08:05→14:29)
[2018-08-07] MEDS: oxyCODONE SR TAB(*) 10 MG TAB.SR PO SCH ×2 (08:14→21:16)
[2018-08-07] MEDS: Pramipexole TAB* 0.5 MG PO SCH ×3 (08:14→21:15)
[2018-08-07] MEDS: Atorvastatin* 40 MG TAB PO SCH (08:14)
[2018-08-07] MEDS: Bumetanide TAB* 2 MG PO SCH (08:14)
[2018-08-07] MEDS: Metoprolol Tartrate TAB* 25 MG PO SCH (08:15)
[2018-08-07] MEDS: Clopidogrel TAB* 75 MG PO SCH (08:15)
[2018-08-07] MEDS: Losartan TAB* 25 MG PO SCH (08:15)
[2018-08-07] MEDS: Aspirin EC TAB* 81 MG TAB.EC PO SCH (08:15)
[2018-08-07] MEDS: Insulin LISPRO* 1 UNITS UNIT SUBCUT SCH ×4 (09:41→21:18)
[2018-08-07] MEDS: Neomycin/Polym/Bacit TOP OINT* 15 GM TOPICAL SCH ×2 (11:13→21:21)
[2018-08-07] MEDS: Hydrocodone/Acetamin 10/325 1 TAB PO PRN (13:51)
--- NOTE | 2018-08-07 17:58 | PN ---
Subjective Date of Service: 08/07/18 Interval History: No overnight events. Pt declines having leg examined under bandages. Reports improved pain today but very fixated on how much pain she had yesterday. Family History: Unchanged from Admission Social History: Unchanged from Admission Past Medical History: Unchanged from Admission Objective Active Medications: Hydrocodone Bitart/Acetaminophen ([place] 10/325 (Nf)) 1 tab PO Q4H PRN PRN Reason: PAIN Last Admin: 08/07/18 13:51 Dose: 1 tab Aspirin (Aspirin Ec Tab*) 81 mg PO DAILY [facility] Last Admin: 08/07/18 08:15 Dose: 81 mg Atorvastatin Calcium (Lipitor*) 40 mg PO DAILY [facility] Last Admin: 08/07/18 08:14 Dose: 40 mg Bumetanide (Bumex Tab*) 2 mg PO DAILY [facility] Last Admin: 08/07/18 08:14 Dose: 2 mg Clopidogrel Bisulfate (Plavix Tab*) 75 mg PO DAILY [facility] Last Admin: 08/07/18 08:15 Dose: 75 mg Dextrose (D50w Syringe 50 Ml*) 12.5 gm IV PUSH .FOR FS < 60 - SS PRN PRN Reason: FS < 60 Docusate Sodium (Colace Cap*) 100 mg PO BEDTIME [facility] Last Admin: 08/06/18 21:18 Dose: 100 mg Heparin Sodium (Porcine) (Heparin Vial(*)) 5,000 units SUBCUT Q8HR [facility] Last Admin: 08/07/18 13:53 Dose: 5,000 units Hydromorphone HCl (Dilaudid Inj1s*) 1 mg IV SLOW PU Q3H PRN PRN Reason: PAIN Last Admin: 08/07/18 14:29 Dose: 1 mg Piperacillin Sod/Tazobactam (Sod 3.375 gm/ Sodium Chloride) 100 mls @ 25 mls/ hr IVPB Q8H [facility] Last Admin: 08/07/18 14:32 Dose: 25 mls/hr Insulin Human Lispro (Humalog*) 0 units SUBCUT ACHS [facility]; Protocol Last Admin: 08/07/18 17:06 Dose: 6 units Losartan Potassium (Cozaar Tab*) 25 mg PO DAILY [facility] Last Admin: 08/07/18 08:15 Dose: 25 mg Metoprolol Tartrate (Lopressor Tab*) 12.5 mg PO DAILY [facility] Last Admin: 08/07/18 08:15 Dose: 12.5 mg Morphine Sulfate (Morphine Inj (Syringe))*) 1 mg IV Q4H PRN PRN Reason: PAIN Last Admin: 08/07/18 01:14 Dose: 1 mg Neomycin/Polymyxin/Bacitracin (Neosporin Top Oint Tube*) 1 applic TOPICAL BID [facility] Last Admin: 08/07/18 11:13 Dose: Not Given Ondansetron HCl (Zofran Inj*) 4 mg IV Q6H PRN PRN Reason: NAUSEA/VOMITING Last Admin: 08/03/18 04:01 Dose: 4 mg Oxycodone HCl (Oxycontin(*)) 10 mg PO Q12HR [facility] Last Admin: 08/07/18 08:14 Dose: 10 mg Pharmacy Consult (Zosyn Per Pharmacy*) 1 note FOLLOW UP .ZOSYN PER PHARMACY [facility] Pramipexole Dihydrochloride (Mirapex Tab*) 1 mg PO TID [facility] Last Admin: 08/07/18 13:51 Dose: 1 mg Pregabalin (Lyrica Cap(*)) 150 mg PO Q8HR [facility] Last Admin: 08/07/18 13:50 Dose: 150 mg Vital Signs - 8 hr 08/07/18 08/07/18 08/07/18 10:45 11:49 12:46 Temperature 96.7 F Pulse Rate 73 Respiratory 16 16 16 Rate Blood Pressure 96/72 (mmHg) O2 Sat by Pulse 96 Oximetry 08/07/18 08/07/18 08/07/18 13:50 13:51 14:29 Temperature Pulse Rate Respiratory 16 16 16 Rate Blood Pressure (mmHg) O2 Sat by Pulse Oximetry 08/07/18 08/07/18 08/07/18 16:13 17:14 17:46 Temperature 97.9 F Pulse Rate Respiratory 16 16 16 Rate Blood Pressure 95/48 (mmHg) O2 Sat by Pulse 97 Oximetry Oxygen Devices in Use Now: None Appearance: chronically ill appearing elderly woman in NAD Ears/Nose/Mouth/Throat: Clear Oropharnyx, Mucous Membranes Moist Neck: NL Appearance and Movements; NL JVP Respiratory: Clear to Auscultation Cardiovascular: RRR Abdominal: NL Sounds; No Tenderness; No Distention Extremities: - - hyperpigmented skin b/l over LEs, slightly erythematous and warmer on L, bandage on L not removed; 1+ pitting edema b/l Neurological: Alert and Oriented x 3 Result Diagrams: 08/04/18 07:02 08/05/18 05:54 Additional Lab and Data: Lab Results 08/02/18 08/02/18 08/02/18 Range/Units 19:19 19:19 19:19 WBC (3.5-10.8) 10^3/uL RBC (3.70-4.87) 10^6 /uL Hgb (12.0-16.0) g/dL Hct (35-47) % MCV (80-97) fL MCH (27-31) pg MCHC (31-36) g/dL RDW (10.5-15) % Plt Count (150-450) 10^3/uL MPV (7.4-10.4) fL Neut % (Auto) % Lymph % (Auto) % [place] % (Auto) % Eos % (Auto) % Baso % (Auto) % Absolute Neuts (auto) (1.5-7.7) 10^3/ul Absolute Lymphs (auto) (1.0-4.8) 10^3/ul Absolute Monos (auto) (0-0.8) 10^3/ul Absolute Eos (auto) (0-0.6) 10^3/ul Absolute Basos (auto) (0-0.2) 10^3/ul Absolute Nucleated RBC 10^3/ul Nucleated RBC % INR (Anticoag Therapy) 1.01 (0.82-1.09) Sodium 137 (135-145) mmol/L Potassium 3.6 (3.5-5.0) mmol/L Chloride 96 L (101-111) mmol/L Carbon Dioxide 32 (22-32) mmol/L Anion Gap 9 (2-11) mmol/L BUN 35 H (6-24) mg/dL Creatinine 1.16 H (0.51-0.95) mg/dL Est GFR ( Amer) 55.6 (>60) Est GFR (Non-Af Amer) 45.9 (>60) BUN/Creatinine Ratio 30.2 H (8-20) Glucose 268 H (70-100) mg/dL Lactic Acid 1.7 (0.5-2.0) mmol/L Calcium 9.8 (8.6-10.3) mg/dL Total Bilirubin 0.40 (0.2-1.0) mg/dL AST 19 (13-39) U/L ALT 7 (7-52) U/L Alkaline Phosphatase 90 (34-104) U/L C-Reactive Protein 43.27 H (<8.01) mg/L Total Protein 8.0 (6.4-8.9) g/dL Albumin 4.2 (3.2-5.2) g/dL Globulin 3.8 (2-4) g/dL Albumin/Globulin Ratio 1.1 (1-3) 08/02/18 Range/Units 19:19 WBC 11.3 H (3.5-10.8) 10^3/uL RBC 3.72 (3.70-4.87) 10^6 /uL Hgb 10.4 L (12.0-16.0) g/dL Hct 32 L (35-47) % MCV 87 (80-97) fL MCH 28 (27-31) pg MCHC 32 (31-36) g/dL RDW 17 H (10.5-15) % Plt Count 184 (150-450) 10^3/uL MPV 9.5 (7.4-10.4) fL Neut % (Auto) 75.3 % Lymph % (Auto) 13.2 % [place] % (Auto) 5.1 % Eos % (Auto) 5.4 % Baso % (Auto) 1.0 % Absolute Neuts (auto) 8.5 H (1.5-7.7) 10^3/ul Absolute Lymphs (auto) 1.5 (1.0-4.8) 10^3/ul Absolute Monos (auto) 0.6 (0-0.8) 10^3/ul Absolute Eos (auto) 0.6 (0-0.6) 10^3/ul Absolute Basos (auto) 0.1 (0-0.2) 10^3/ul Absolute Nucleated RBC 0.0 10^3/ul Nucleated RBC % 0.1 INR (Anticoag Therapy) (0.82-1.09) Sodium (135-145) mmol/L Potassium (3.5-5.0) mmol/L Chloride (101-111) mmol/L Carbon Dioxide (22-32) mmol/L Anion Gap (2-11) mmol/L BUN (6-24) mg/dL Creatinine (0.51-0.95) mg/dL Est GFR ( Amer) (>60) Est GFR (Non-Af Amer) (>60) BUN/Creatinine Ratio (8-20) Glucose (70-100) mg/dL Lactic Acid (0.5-2.0) mmol/L Calcium (8.6-10.3) mg/dL Total Bilirubin (0.2-1.0) mg/dL AST (13-39) U/L ALT (7-52) U/L Alkaline Phosphatase (34-104) U/L C-Reactive Protein (<8.01) mg/L Total Protein (6.4-8.9) g/dL Albumin (3.2-5.2) g/dL Globulin (2-4) g/dL Albumin/Globulin Ratio (1-3) Microbiology and Other Data: Microbiology 08/02/18 20:13 Skin and Soft Tissue MRSA/MSSA (PCR - Final Knee Left Mrsa Negative S.aureus Negative Gram Stain - Final Wound Culture - Preliminary Pseudomonas Aeruginosa Escherichia Coli 08/02/18 20:13 Skin and Soft Tissue MRSA/MSSA (PCR - Final Leg Left Mrsa Negative S.aureus Negative Gram Stain - Final Wound Culture - Preliminary Pseudomonas Aeruginosa Escherichia Coli 08/03/18 04:35 Nasal Screen MRSA (PCR) - Final Nasal Mrsa Not Detected Assess/Plan/Problems-Billing Assessment: 72 yo F with h/o CABG 04/15/18, vein grafted from left LE with chronic LE's edema and nonhealing wound on left LE - Patient Problems (1) Cellulitis Comment: pt has a significant deep wound on medial aspect on left knee. Appreciate wound care consult, Dr. Heck's input Pt had vascular clip noted in her below the knee wound on left leg medially, likely placed during vein grafting at CABG-reoved on 08/06/18 by surgery Cx positive for Pseudomonas and E.coli. Cont Zosyn. ID consulted PAD noted s/p angioplasty of SFA by Dr. Sharma 08/04/18 (2) Chronic diastolic (congestive) heart failure Comment: cont Bumex, euvolemic daily weights EF 55% in 05/2018 (3) Peripheral arterial disease Comment: s/p SFA angioplasty by Dr. Sharma on 08/04/18 cont ASA (indefinetely), started Plavix (cont for 6 months total) (4) CAD (coronary artery disease) Comment: -s/p CABG 04/15/18 (5) Diabetes mellitus, type II Comment: -Continue sliding scale -holding glipizide, jardiance (6) Hypertension Comment: -Continue Losartan,lopressor (7) CKD stage 3 due to type 2 diabetes mellitus Current Visit: Yes Status: Acute Code(s): E11.22 - TYPE 2 DIABETES MELLITUS W DIABETIC CHRONIC KIDNEY DISEASE; N18.3 - CHRONIC KIDNEY DISEASE, STAGE 3 ( MODERATE) SNOMED Code(s): 326704032208 Comment: creat close to baseline (8) DVT prophylaxis Current Visit: No Status: Acute Code(s): [id number] - SNOMED Code(s): 643202795 Comment: -Heparin SQ Status and Disposition: inpatient
[2018-08-07] MEDS: Docusate CAP* 100 MG PO SCH (21:17)
[2018-08-08] MEDS: HYDROmorphone INJ1* 1 MG/ML SYRINGE IV SLOW PU PRN ×2 (01:12→14:58)
[2018-08-08] MEDS: Pregabalin CAP(*) 50 MG PO SCH ×3 (06:04→21:25)
[2018-08-08] MEDS: Piperacillin/Tazobac ADVAN(*) 3.375 GM in NS 0.9% 100 ML* 100 ML IVPB SCH ×3 (06:05→21:25)
[2018-08-08] MEDS: Heparin VIAL(*) 5000 UNITS/ML VIAL (FIVE THOUSAND) SUBCUT SCH (06:06)
[2018-08-08] MEDS: Bumetanide TAB* 2 MG PO SCH (08:04)
[2018-08-08] MEDS: Clopidogrel TAB* 75 MG PO SCH (08:04)
[2018-08-08] MEDS: Pramipexole TAB* 0.5 MG PO SCH ×3 (08:04→21:24)
[2018-08-08] MEDS: Atorvastatin* 40 MG TAB PO SCH (08:04)
[2018-08-08] MEDS: oxyCODONE SR TAB(*) 10 MG TAB.SR PO SCH ×2 (08:04→21:25)
[2018-08-08] MEDS: Losartan TAB* 25 MG PO SCH (08:04)
[2018-08-08] MEDS: Metoprolol Tartrate TAB* 25 MG PO SCH (08:05)
[2018-08-08] MEDS ORDERED: Senna TAB PO PRN (08:09)
[2018-08-08] MEDS ORDERED: Polyethylene Glycol 3350* 17 GM PACKET PO PRN (08:09)
[2018-08-08] MEDS: Hydrocodone/Acetamin 10/325 1 TAB PO PRN ×2 (08:19→14:07)
[2018-08-08] MEDS ORDERED: Metoprolol Succinate XL TAB* 25 MG PO SCH (09:00)
[2018-08-08] MEDS: Enoxaparin(*) 30 MG/0.3 ML SYR SUBCUT SCH (10:20)
[2018-08-08] MEDS: Insulin LISPRO* 1 UNITS UNIT SUBCUT SCH ×3 (10:21→21:26)
[2018-08-08] MEDS: Aspirin EC TAB* 81 MG TAB.EC PO SCH (10:22)
[2018-08-08] MEDS: Neomycin/Polym/Bacit TOP OINT* 15 GM TOPICAL SCH ×2 (12:02→21:26)
--- NOTE | 2018-08-08 15:37 | PN ---
Subjective Date of Service: 08/08/18 Interval History: No overnight events. Reports daily BM. Pain better controlled. Pt requesting less frequent fingersticks, stating she cannot handle ac or achs frequency. Discussed that her blood glucose has been very high, although she denies. Will start glargine nightly and decrease lispro correction to bid. Per surgery note, may go for wound vac tomorrow. Pending final recs. Family History: Unchanged from Admission Social History: Unchanged from Admission Past Medical History: Unchanged from Admission Objective Active Medications: Hydrocodone Bitart/Acetaminophen ([place] 10/325 (Nf)) 1 tab PO Q4H PRN PRN Reason: PAIN Last Admin: 08/08/18 14:07 Dose: 1 tab Aspirin (Aspirin Ec Tab*) 81 mg PO DAILY [facility] Last Admin: 08/08/18 10:22 Dose: 81 mg Atorvastatin Calcium (Lipitor*) 40 mg PO DAILY [facility] Last Admin: 08/08/18 08:04 Dose: 40 mg Bumetanide (Bumex Tab*) 2 mg PO DAILY [facility] Last Admin: 08/08/18 08:04 Dose: 2 mg Clopidogrel Bisulfate (Plavix Tab*) 75 mg PO DAILY [facility] Last Admin: 08/08/18 08:04 Dose: 75 mg Dextrose (D50w Syringe 50 Ml*) 12.5 gm IV PUSH .FOR FS < 60 - SS PRN PRN Reason: FS < 60 Enoxaparin Sodium (Lovenox(*)) 30 mg SUBCUT Q24H [facility] Last Admin: 08/08/18 10:20 Dose: 30 mg Hydromorphone HCl (Dilaudid Inj1s*) 1 mg IV SLOW PU Q6H PRN PRN Reason: PAIN Last Admin: 08/08/18 14:58 Dose: 1 mg Piperacillin Sod/Tazobactam (Sod 3.375 gm/ Sodium Chloride) 100 mls @ 25 mls/ hr IVPB Q8H [facility] Last Admin: 08/08/18 06:05 Dose: 25 mls/hr Insulin Glargine (Lantus(*)) 10 units SUBCUT BEDTIME [facility] Insulin Human Lispro (Humalog*) 0 units SUBCUT BID [facility]; Protocol Metoprolol Succinate (Toprol Xl Tab*) 12.5 mg PO DAILY [facility] Neomycin/Polymyxin/Bacitracin (Neosporin Top Oint Tube*) 1 applic TOPICAL BID [facility] Last Admin: 08/08/18 12:02 Dose: Not Given Ondansetron HCl (Zofran Inj*) 4 mg IV Q6H PRN PRN Reason: NAUSEA/VOMITING Last Admin: 08/03/18 04:01 Dose: 4 mg Oxycodone HCl (Oxycontin(*)) 10 mg PO Q12HR [facility] Last Admin: 08/08/18 08:04 Dose: 10 mg Pharmacy Consult (Zosyn Per Pharmacy*) 1 note FOLLOW UP .ZOSYN PER PHARMACY [facility] Polyethylene Glycol/Electrolytes (Miralax*) 17 gm PO DAILY PRN PRN Reason: CONSTIPATION Pramipexole Dihydrochloride (Mirapex Tab*) 1 mg PO TID [facility] Last Admin: 08/08/18 14:06 Dose: 1 mg Pregabalin (Lyrica Cap(*)) 150 mg PO Q8HR [facility] Last Admin: 08/08/18 14:06 Dose: 150 mg Senna (Senokot Tab*) 1 tab PO BEDTIME PRN PRN Reason: if no BM during day Vital Signs - 8 hr 08/08/18 08/08/18 08/08/18 08:00 08:04 08:19 Temperature Pulse Rate Respiratory 17 17 16 Rate Blood Pressure (mmHg) O2 Sat by Pulse Oximetry 08/08/18 08/08/18 08/08/18 11:26 12:02 12:03 Temperature 98 F Pulse Rate 66 Respiratory 16 16 Rate Blood Pressure 79/49 (mmHg) O2 Sat by Pulse 93 Oximetry 08/08/18 08/08/18 08/08/18 14:06 14:07 14:58 Temperature Pulse Rate Respiratory 16 16 16 Rate Blood Pressure (mmHg) O2 Sat by Pulse Oximetry 08/08/18 15:28 Temperature 98.2 F Pulse Rate 73 Respiratory 16 Rate Blood Pressure 90/49 (mmHg) O2 Sat by Pulse 90 Oximetry Oxygen Devices in Use Now: None Appearance: chronically ill-appearing elderly woman, NAD Eyes: No Scleral Icterus Ears/Nose/Mouth/Throat: Clear Oropharnyx, Mucous Membranes Moist Neck: NL Appearance and Movements; NL JVP Respiratory: Clear to Auscultation Cardiovascular: NL Sounds; No Murmurs; No JVD, RRR Abdominal: NL Sounds; No Tenderness; No Distention Extremities: - - LEs with hyperpigmentation and thickened skin b/l; superimposed erythema on L; 1+ pitting edema b/l; bandage over L leg wound c/d/ i but pt refuses removal for exam Neurological: Alert and Oriented x 3 Result Diagrams: 08/04/18 07:02 08/05/18 05:54 Additional Lab and Data: Lab Results 08/02/18 08/02/18 08/02/18 Range/Units 19:19 19:19 19:19 WBC (3.5-10.8) 10^3/uL RBC (3.70-4.87) 10^6 /uL Hgb (12.0-16.0) g/dL Hct (35-47) % MCV (80-97) fL MCH (27-31) pg MCHC (31-36) g/dL RDW (10.5-15) % Plt Count (150-450) 10^3/uL MPV (7.4-10.4) fL Neut % (Auto) % Lymph % (Auto) % [place] % (Auto) % Eos % (Auto) % Baso % (Auto) % Absolute Neuts (auto) (1.5-7.7) 10^3/ul Absolute Lymphs (auto) (1.0-4.8) 10^3/ul Absolute Monos (auto) (0-0.8) 10^3/ul Absolute Eos (auto) (0-0.6) 10^3/ul Absolute Basos (auto) (0-0.2) 10^3/ul Absolute Nucleated RBC 10^3/ul Nucleated RBC % INR (Anticoag Therapy) 1.01 (0.82-1.09) Sodium 137 (135-145) mmol/L Potassium 3.6 (3.5-5.0) mmol/L Chloride 96 L (101-111) mmol/L Carbon Dioxide 32 (22-32) mmol/L Anion Gap 9 (2-11) mmol/L BUN 35 H (6-24) mg/dL Creatinine 1.16 H (0.51-0.95) mg/dL Est GFR ( Amer) 55.6 (>60) Est GFR (Non-Af Amer) 45.9 (>60) BUN/Creatinine Ratio 30.2 H (8-20) Glucose 268 H (70-100) mg/dL Lactic Acid 1.7 (0.5-2.0) mmol/L Calcium 9.8 (8.6-10.3) mg/dL Total Bilirubin 0.40 (0.2-1.0) mg/dL AST 19 (13-39) U/L ALT 7 (7-52) U/L Alkaline Phosphatase 90 (34-104) U/L C-Reactive Protein 43.27 H (<8.01) mg/L Total Protein 8.0 (6.4-8.9) g/dL Albumin 4.2 (3.2-5.2) g/dL Globulin 3.8 (2-4) g/dL Albumin/Globulin Ratio 1.1 (1-3) 08/02/18 Range/Units 19:19 WBC 11.3 H (3.5-10.8) 10^3/uL RBC 3.72 (3.70-4.87) 10^6 /uL Hgb 10.4 L (12.0-16.0) g/dL Hct 32 L (35-47) % MCV 87 (80-97) fL MCH 28 (27-31) pg MCHC 32 (31-36) g/dL RDW 17 H (10.5-15) % Plt Count 184 (150-450) 10^3/uL MPV 9.5 (7.4-10.4) fL Neut % (Auto) 75.3 % Lymph % (Auto) 13.2 % [place] % (Auto) 5.1 % Eos % (Auto) 5.4 % Baso % (Auto) 1.0 % Absolute Neuts (auto) 8.5 H (1.5-7.7) 10^3/ul Absolute Lymphs (auto) 1.5 (1.0-4.8) 10^3/ul Absolute Monos (auto) 0.6 (0-0.8) 10^3/ul Absolute Eos (auto) 0.6 (0-0.6) 10^3/ul Absolute Basos (auto) 0.1 (0-0.2) 10^3/ul Absolute Nucleated RBC 0.0 10^3/ul Nucleated RBC % 0.1 INR (Anticoag Therapy) (0.82-1.09) Sodium (135-145) mmol/L Potassium (3.5-5.0) mmol/L Chloride (101-111) mmol/L Carbon Dioxide (22-32) mmol/L Anion Gap (2-11) mmol/L BUN (6-24) mg/dL Creatinine (0.51-0.95) mg/dL Est GFR ( Amer) (>60) Est GFR (Non-Af Amer) (>60) BUN/Creatinine Ratio (8-20) Glucose (70-100) mg/dL Lactic Acid (0.5-2.0) mmol/L Calcium (8.6-10.3) mg/dL Total Bilirubin (0.2-1.0) mg/dL AST (13-39) U/L ALT (7-52) U/L Alkaline Phosphatase (34-104) U/L C-Reactive Protein (<8.01) mg/L Total Protein (6.4-8.9) g/dL Albumin (3.2-5.2) g/dL Globulin (2-4) g/dL Albumin/Globulin Ratio (1-3) Microbiology and Other Data: Microbiology 08/02/18 20:13 Skin and Soft Tissue MRSA/MSSA (PCR - Final Knee Left Mrsa Negative S.aureus Negative Gram Stain - Final Wound Culture - Preliminary Pseudomonas Aeruginosa Escherichia Coli 08/02/18 20:13 Skin and Soft Tissue MRSA/MSSA (PCR - Final Leg Left Mrsa Negative S.aureus Negative Gram Stain - Final Wound Culture - Preliminary Pseudomonas Aeruginosa Escherichia Coli 08/03/18 04:35 Nasal Screen MRSA (PCR) - Final Nasal Mrsa Not Detected Assess/Plan/Problems-Billing Assessment: 72W with CAD s/p CABG 04/15/18, vein grafted from left LE with chronic LE edema and nonhealing wound on left leg, presents with LLE cellulitis over nonhealing ulcer. Cultures with E. coli and pseudomonas. now s/p SFA revascularization and angioplasty (08/04) and debridement (08/06), pending wound vac. - Patient Problems (1) Cellulitis Comment: Significant deep nonhealing ulcer on medial aspect on left knee with vascular clip noted in her wound medially, likely placed during vein grafting at CABG. Cx positive for Pseudomonas and E.coli. - s/p removal of clip and debridement by Dr. Heck on 08/06, now pending wound vac - appreciate ID consult, cont Zosyn IV - PAD noted, s/p angioplasty of SFA by Dr. Sharma 08/04/18 - was on opioids at home; here on oxy CR with [place] for mild-mod pain and hydromorphone for severe pain (2) Peripheral arterial disease Comment: s/p SFA angioplasty by Dr. Sharma on 08/04/18 cont ASA (indefinetely), started Plavix (cont for 6 months total) (3) Chronic diastolic (congestive) heart failure Comment: EF 55% in 05/2018 - cont Bumex - daily weights (4) Hypertension Comment: - Holding home losartan 25mg given low BPs. - decrease metoprolol succinate to 12.5mg daily (5) Diabetes mellitus, type II Comment: Requesting less frequent fingersticks for glucose monitoring. -Continue sliding scale BID, adding glargine 10u nightly for coverage -holding glipizide, jardiance (6) CAD (coronary artery disease) Comment: s/p CABG 04/15/18 - continue ASA, statin (7) CKD stage 3 due to type 2 diabetes mellitus Comment: creat close to baseline (8) DVT prophylaxis Comment: cont lovenox subq Status and Disposition: inpatient - on IV abx and pending wound vac
[2018-08-08] MEDS: Insulin GLARGINE(*) 1 UNITS UNIT SUBCUT SCH (21:27)
[2018-08-09] MEDS: Pregabalin CAP(*) 50 MG PO SCH ×3 (05:59→21:20)
[2018-08-09] MEDS: Hydrocodone/Acetamin 10/325 1 TAB PO PRN ×3 (06:00→18:02)
[2018-08-09 06:43] LABS: Calcium 9.5 mg/dL (8.6-10.3); Hematocrit 38 % (35-47); Hemoglobin 12.1 g/dL (12.0-16.0); Magnesium 2.1 mg/dL (1.9-2.7); Mean Corpuscular HGB Conc 32 g/dL (31-36); Mean Corpuscular Hemoglobin 28 pg (27-31); Mean Corpuscular Volume 88 fL (80-97); Red Blood Count 4.33 10^6 /uL (3.70-4.87); Red Cell Distribution Width 18 % (10.5-15)
[2018-08-09 06:49] LABS: BUN/Creatinine Ratio 20.7 (8-20); EGFR African American 52.9 (>60); EGFR Non-African American 43.7 (>60)
[2018-08-09 06:53] LABS: Potassium 4.4 mmol/L (3.5-5.0)
[2018-08-09 06:57] LABS: Mean Platelet Volume 10.3 fL (7.4-10.4); Platelet Count 225 10^3/uL (150-450)
[2018-08-09] MEDS: Pramipexole TAB* 0.5 MG PO SCH ×3 (11:04→21:20)
[2018-08-09] MEDS: Bumetanide TAB* 2 MG PO SCH (11:04)
[2018-08-09] MEDS: Metoprolol Succinate XL TAB* 25 MG PO SCH (11:04)
[2018-08-09] MEDS: Atorvastatin* 40 MG TAB PO SCH (11:04)
[2018-08-09] MEDS: Clopidogrel TAB* 75 MG PO SCH (11:05)
[2018-08-09] MEDS: oxyCODONE SR TAB(*) 10 MG TAB.SR PO SCH ×2 (11:05→21:19)
[2018-08-09] MEDS: Aspirin EC TAB* 81 MG TAB.EC PO SCH (11:06)
[2018-08-09] MEDS: Enoxaparin(*) 30 MG/0.3 ML SYR SUBCUT SCH (11:08)
[2018-08-09] MEDS: Insulin LISPRO* 1 UNITS UNIT SUBCUT SCH ×2 (11:09→21:22)
[2018-08-09] MEDS: Piperacillin/Tazobac ADVAN(*) 3.375 GM in NS 0.9% 100 ML* 100 ML IVPB SCH ×2 (11:28→15:08)
[2018-08-09] MEDS: Neomycin/Polym/Bacit TOP OINT* 15 GM TOPICAL SCH ×2 (11:32→21:23)
--- NOTE | 2018-08-09 16:36 | PN ---
Progress Note - Progress Note Date of Service: 08/09/18 Note: Surgery Progress: S: States she has pain at dsg changes. Wondering when she'll be d/c'd to home. O: afeb LLE wounds: some green/yellow drainage on dsg c/w Pseudomonas; base of both wounds generally clean w/ granulation. Some fibrinous/necrotic slough at edges, but limited. Surrounding cellulitic changes largely resolved. Some tenderness to palp, but nothing too concerning. A/P: saline dressings replaced; cont same. Consider santyl ointment vs VAC. Abx per medicine.
--- NOTE | 2018-08-09 17:43 | PN ---
Subjective Date of Service: 08/09/18 Interval History: Nursing reports episode of shortness of breath at rest this morning. At time of evaluation, patient reports shortness of breath is resolved. Chronic restless leg pain bilaterally is present and unchanged from baseline. Chronic low back pain was worse this morning but now to her baseline. Pain at wound of right leg is unchanged. Patient denies fever/chills, chest pain, abd pain, nausea, vomiting, diarrhea. Family History: Unchanged from Admission Social History: Unchanged from Admission Past Medical History: Unchanged from Admission Objective Active Medications: Hydrocodone Bitart/Acetaminophen ([place] 10/325 (Nf)) 1 tab PO Q4H PRN PRN Reason: PAIN Last Admin: 08/09/18 11:05 Dose: 1 tab Aspirin (Aspirin Ec Tab*) 81 mg PO DAILY [facility] Last Admin: 08/09/18 11:06 Dose: 81 mg Atorvastatin Calcium (Lipitor*) 40 mg PO DAILY [facility] Last Admin: 08/09/18 11:04 Dose: 40 mg Bumetanide (Bumex Tab*) 2 mg PO DAILY [facility] Last Admin: 08/09/18 11:04 Dose: 2 mg Clopidogrel Bisulfate (Plavix Tab*) 75 mg PO DAILY [facility] Last Admin: 08/09/18 11:05 Dose: 75 mg Dextrose (D50w Syringe 50 Ml*) 12.5 gm IV PUSH .FOR FS < 60 - SS PRN PRN Reason: FS < 60 Enoxaparin Sodium (Lovenox(*)) 30 mg SUBCUT Q24H [facility] Last Admin: 08/09/18 11:08 Dose: 30 mg Hydromorphone HCl (Dilaudid Inj1s*) 1 mg IV SLOW PU Q6H PRN PRN Reason: PAIN Last Admin: 08/09/18 00:00 Dose: 1 mg Insulin Glargine (Lantus(*)) 10 units SUBCUT BEDTIME [facility] Last Admin: 08/08/18 21:27 Dose: 10 unit Insulin Human Lispro (Humalog*) 0 units SUBCUT BID [facility]; Protocol Last Admin: 08/09/18 11:09 Dose: 6 unit Levofloxacin (Levaquin Tab*) 500 mg PO Q24H [facility]; Protocol Metoprolol Succinate (Toprol Xl Tab*) 12.5 mg PO DAILY [facility] Last Admin: 08/09/18 11:04 Dose: 12.5 mg Neomycin/Polymyxin/Bacitracin (Neosporin Top Oint Tube*) 1 applic TOPICAL BID [facility] Last Admin: 08/09/18 11:32 Dose: Not Given Ondansetron HCl (Zofran Inj*) 4 mg IV Q6H PRN PRN Reason: NAUSEA/VOMITING Last Admin: 08/03/18 04:01 Dose: 4 mg Oxycodone HCl (Oxycontin(*)) 10 mg PO Q12HR [facility] Last Admin: 08/09/18 11:05 Dose: 10 mg Polyethylene Glycol/Electrolytes (Miralax*) 17 gm PO DAILY PRN PRN Reason: CONSTIPATION Pramipexole Dihydrochloride (Mirapex Tab*) 1 mg PO TID [facility] Last Admin: 08/09/18 15:46 Dose: 1 mg Pregabalin (Lyrica Cap(*)) 150 mg PO Q8HR [facility] Last Admin: 08/09/18 15:45 Dose: 150 mg Senna (Senokot Tab*) 1 tab PO BEDTIME PRN PRN Reason: if no BM during day Vital Signs - 8 hr 08/09/18 08/09/18 08/09/18 11:05 13:38 13:39 Respiratory 16 16 16 Rate 08/09/18 15:45 Respiratory 16 Rate Vital Signs 08/08/18 08/08/18 08/08/18 19:30 19:45 20:00 Temperature 96.8 F Pulse Rate 81 Respiratory 18 16 Rate Blood Pressure 101/34 104/52 (mmHg) O2 Sat by Pulse 95 Oximetry 08/08/18 08/08/18 08/09/18 21:25 23:25 00:00 Temperature Pulse Rate Respiratory 16 18 18 Rate Blood Pressure (mmHg) O2 Sat by Pulse Oximetry 08/09/18 08/09/18 08/09/18 01:00 03:31 05:59 Temperature 97.8 F Pulse Rate 68 Respiratory 16 14 18 Rate Blood Pressure 134/58 (mmHg) O2 Sat by Pulse 96 Oximetry 08/09/18 08/09/18 08/09/18 06:00 08:00 11:05 Temperature Pulse Rate Respiratory 18 16 16 Rate Blood Pressure (mmHg) O2 Sat by Pulse Oximetry 08/09/18 08/09/18 08/09/18 13:38 13:39 15:45 Temperature Pulse Rate Respiratory 16 16 16 Rate Blood Pressure (mmHg) O2 Sat by Pulse Oximetry 08/09/18 08/09/18 17:58 18:02 Temperature Pulse Rate Respiratory 16 16 Rate Blood Pressure (mmHg) O2 Sat by Pulse Oximetry Oxygen Devices in Use Now: None Appearance: Obese, white female sitting upright in hospital chair, appearing in NAD Eyes: No Scleral Icterus, PERRLA Ears/Nose/Mouth/Throat: Mucous Membranes Moist Neck: NL Appearance and Movements; NL JVP Respiratory: Symmetrical Chest Expansion and Respiratory Effort, Clear to Auscultation Cardiovascular: NL Sounds; No Murmurs; No JVD, RRR Abdominal: NL Sounds; No Tenderness; No Distention Extremities: No Clubbing, Cyanosis, - - +1 pitting edema pretibially bilaterally ; LLE is mildly erythematous from dressing around mid-leg and inferiorly Skin: - - Skin is warm and dry; left leg wound in dressing, dressing is dry Neurological: Alert and Oriented x 3, NL Muscle Strength and Tone Result Diagrams: 08/09/18 05:53 08/09/18 05:53 Additional Lab and Data: Lab Results 08/02/18 08/02/18 08/02/18 Range/Units 19:19 19:19 19:19 WBC (3.5-10.8) 10^3/uL RBC (3.70-4.87) 10^6 /uL Hgb (12.0-16.0) g/dL Hct (35-47) % MCV (80-97) fL MCH (27-31) pg MCHC (31-36) g/dL RDW (10.5-15) % Plt Count (150-450) 10^3/uL MPV (7.4-10.4) fL Neut % (Auto) % Lymph % (Auto) % [place] % (Auto) % Eos % (Auto) % Baso % (Auto) % Absolute Neuts (auto) (1.5-7.7) 10^3/ul Absolute Lymphs (auto) (1.0-4.8) 10^3/ul Absolute Monos (auto) (0-0.8) 10^3/ul Absolute Eos (auto) (0-0.6) 10^3/ul Absolute Basos (auto) (0-0.2) 10^3/ul Absolute Nucleated RBC 10^3/ul Nucleated RBC % INR (Anticoag Therapy) 1.01 (0.82-1.09) Sodium 137 (135-145) mmol/L Potassium 3.6 (3.5-5.0) mmol/L Chloride 96 L (101-111) mmol/L Carbon Dioxide 32 (22-32) mmol/L Anion Gap 9 (2-11) mmol/L BUN 35 H (6-24) mg/dL Creatinine 1.16 H (0.51-0.95) mg/dL Est GFR ( Amer) 55.6 (>60) Est GFR (Non-Af Amer) 45.9 (>60) BUN/Creatinine Ratio 30.2 H (8-20) Glucose 268 H (70-100) mg/dL Lactic Acid 1.7 (0.5-2.0) mmol/L Calcium 9.8 (8.6-10.3) mg/dL Total Bilirubin 0.40 (0.2-1.0) mg/dL AST 19 (13-39) U/L ALT 7 (7-52) U/L Alkaline Phosphatase 90 (34-104) U/L C-Reactive Protein 43.27 H (<8.01) mg/L Total Protein 8.0 (6.4-8.9) g/dL Albumin 4.2 (3.2-5.2) g/dL Globulin 3.8 (2-4) g/dL Albumin/Globulin Ratio 1.1 (1-3) 08/02/18 Range/Units 19:19 WBC 11.3 H (3.5-10.8) 10^3/uL RBC 3.72 (3.70-4.87) 10^6 /uL Hgb 10.4 L (12.0-16.0) g/dL Hct 32 L (35-47) % MCV 87 (80-97) fL MCH 28 (27-31) pg MCHC 32 (31-36) g/dL RDW 17 H (10.5-15) % Plt Count 184 (150-450) 10^3/uL MPV 9.5 (7.4-10.4) fL Neut % (Auto) 75.3 % Lymph % (Auto) 13.2 % [place] % (Auto) 5.1 % Eos % (Auto) 5.4 % Baso % (Auto) 1.0 % Absolute Neuts (auto) 8.5 H (1.5-7.7) 10^3/ul Absolute Lymphs (auto) 1.5 (1.0-4.8) 10^3/ul Absolute Monos (auto) 0.6 (0-0.8) 10^3/ul Absolute Eos (auto) 0.6 (0-0.6) 10^3/ul Absolute Basos (auto) 0.1 (0-0.2) 10^3/ul Absolute Nucleated RBC 0.0 10^3/ul Nucleated RBC % 0.1 INR (Anticoag Therapy) (0.82-1.09) Sodium (135-145) mmol/L Potassium (3.5-5.0) mmol/L Chloride (101-111) mmol/L Carbon Dioxide (22-32) mmol/L Anion Gap (2-11) mmol/L BUN (6-24) mg/dL Creatinine (0.51-0.95) mg/dL Est GFR ( Amer) (>60) Est GFR (Non-Af Amer) (>60) BUN/Creatinine Ratio (8-20) Glucose (70-100) mg/dL Lactic Acid (0.5-2.0) mmol/L Calcium (8.6-10.3) mg/dL Total Bilirubin (0.2-1.0) mg/dL AST (13-39) U/L ALT (7-52) U/L Alkaline Phosphatase (34-104) U/L C-Reactive Protein (<8.01) mg/L Total Protein (6.4-8.9) g/dL Albumin (3.2-5.2) g/dL Globulin (2-4) g/dL Albumin/Globulin Ratio (1-3) Microbiology and Other Data: Microbiology 08/02/18 20:13 Skin and Soft Tissue MRSA/MSSA (PCR - Final Knee Left Mrsa Negative S.aureus Negative Gram Stain - Final Wound Culture - Preliminary Pseudomonas Aeruginosa Escherichia Coli 08/02/18 20:13 Skin and Soft Tissue MRSA/MSSA (PCR - Final Leg Left Mrsa Negative S.aureus Negative Gram Stain - Final Wound Culture - Preliminary Pseudomonas Aeruginosa Escherichia Coli 08/03/18 04:35 Nasal Screen MRSA (PCR) - Final Nasal Mrsa Not Detected Assess/Plan/Problems-Billing Assessment: 72W with CAD s/p CABG 04/15/18, vein grafted from left LE with chronic LE edema and nonhealing wound on left leg, presents with LLE cellulitis over nonhealing ulcer. Cultures with E. coli and pseudomonas. now s/p SFA revascularization and angioplasty (08/04) and debridement (08/06), pending wound vac. - Patient Problems (1) Cellulitis Current Visit: Yes Status: Acute Code(s): L03.90 - CELLULITIS, UNSPECIFIED SNOMED Code(s): 940492273 Comment: -nonhealing ulcers on medial aspect on left knee with surrounding cellulitis with vascular clip noted in her wound medially, likely placed during vein grafting at CABG in April - wound cultures demonstrate E. coli, pseudomonas, finegoldia magna, and p. asacchrolyticus - s/p removal of clip and debridement by Dr. Heck on 08/06; discussed with Dr. Heck today: no wound vac at this time but will be later determined in wound clinic follow up; continue daily wound care - changing Zosyn IV to levaquin 500 mg po daily per ID rec, Dr. Lyle recommends x 7 days; patient has received zosyn for 6 days in this hospitalization and this is adequate anaerobic coverage per Dr. Lyle - continue oxy CR with [place] for mild-mod pain and hydromorphone for severe pain ; patient takes opiates chronically (2) Superficial femoral artery occlusion Current Visit: Yes Status: Acute Code(s): I70.209 - UNSP ATHSCL [place] ARTERIES OF EXTREMITIES, UNSP EXTREMITY SNOMED Code(s): 540759563 Comment: -left SFA occlusion, s/p atherectomy and drug coated balloon angioplasty with interventional radiologist Dr. Sharma on 08/04/18 -likely cause of nonhealing wound to left LE -continue plavix 75 mg (continue for 6 months), continue ASA indefinitely for treatment of PAD (3) Dyspnea Current Visit: Yes Status: Acute Code(s): R06.00 - DYSPNEA, UNSPECIFIED SNOMED Code(s): 878287509 Comment: -complaint of dyspnea at rest to nursing this morning -resolved at time of evaluation -patient with benign lung exam and oxygen saturations are wnl -will continue to monitor (4) CAD (coronary artery disease) Current Visit: Yes Status: Acute Code(s): I25.10 - ATHSCL HEART DISEASE OF [place] CORONARY ARTERY W/O ANG PCTRS SNOMED Code(s): 53783143 Comment: - s/p CABG 04/15/18 - continue ASA, statin (5) CKD stage 3 due to type 2 diabetes mellitus Current Visit: Yes Status: Acute Code(s): E11.22 - TYPE 2 DIABETES MELLITUS W DIABETIC CHRONIC KIDNEY DISEASE; N18.3 - CHRONIC KIDNEY DISEASE, STAGE 3 ( MODERATE) SNOMED Code(s): 417420079612 Comment: -creatinine 1.21, close to baseline but minimally elevated likely related to receiving zosyn (6) Chronic diastolic (congestive) heart failure Current Visit: Yes Status: Acute Code(s): I50.32 - CHRONIC DIASTOLIC ( CONGESTIVE) HEART FAILURE SNOMED Code(s): 393454576 Comment: - EF 55% in 05/2018 - cont Bumex - daily weights; patient has been slowly losing weight (7) Diabetes mellitus, type II Current Visit: Yes Status: Acute Comment: -Continue sliding scale lispro BID, continue glargine 10u nightly for coverage -restarting home glipizide and jardiance as patient has po intake and poor glucose control continues (8) Hypertension Current Visit: Yes Status: Acute Code(s): I10 - ESSENTIAL (PRIMARY) HYPERTENSION SNOMED Code(s): 07746621 Comment: - Holding home losartan 25mg given low BPs yesterday, will continue to hold for now and monitor - decrease metoprolol succinate to 12.5mg daily (9) DVT prophylaxis Current Visit: Yes Status: Acute Code(s): QKW3527 - SNOMED Code(s): 991324034 Comment: cont lovenox subq (10) Full code status Current Visit: No Status: Acute Code(s): Z78.9 - OTHER SPECIFIED HEALTH STATUS SNOMED Code(s): 962435034 Status and Disposition: patient refuses rehab, will go home with daily visiting nurses for wound changes ; [facility] not able to see patient until Thursday so will stay inpatient until tomorrow for wound care and discharge tomorrow
[2018-08-09] MEDS: HYDROmorphone INJ1* 1 MG/ML SYRINGE IV SLOW PU PRN ×2 (17:58)
[2018-08-09] MEDS ORDERED: Levofloxacin TAB* 500 MG PO SCH (18:00)
[2018-08-09] MEDS: Insulin GLARGINE(*) 1 UNITS UNIT SUBCUT SCH (21:22)
[2018-08-10] MEDS: Hydrocodone/Acetamin 10/325 1 TAB PO PRN (04:08)
[2018-08-10] MEDS: Pregabalin CAP(*) 50 MG PO SCH ×2 (05:12→13:14)
[2018-08-10] MEDS: Pramipexole TAB* 0.5 MG PO SCH ×3 (05:24→13:15)
[2018-08-10 06:51] LABS: Hematocrit 35 % (35-47); Hemoglobin 11.1 g/dL (12.0-16.0); Mean Corpuscular HGB Conc 32 g/dL (31-36); Mean Corpuscular Hemoglobin 27 pg (27-31); Mean Corpuscular Volume 85 fL (80-97); Mean Platelet Volume 9.6 fL (7.4-10.4); Platelet Count 283 10^3/uL (150-450); Red Blood Count 4.04 10^6 /uL (3.70-4.87); Red Cell Distribution Width 17 % (10.5-15); White Blood Count 12.2 10^3/uL (3.5-10.8)
[2018-08-10 07:11] LABS: BUN/Creatinine Ratio 22.3 (8-20); Calcium 9.7 mg/dL (8.6-10.3); EGFR African American 52.9 (>60); EGFR Non-African American 43.7 (>60); Potassium 4.1 mmol/L (3.5-5.0)
[2018-08-10] MEDS ORDERED: glipiZIDE TAB.XL* 5 MG PO SCH (08:30)
[2018-08-10] MEDS ORDERED: [UNRECOGNIZED DRUG - OTHER] PO SCH (09:00)
[2018-08-10 09:19] VITALS: BP 106/47
[2018-08-10] MEDS: Enoxaparin(*) 30 MG/0.3 ML SYR SUBCUT SCH (09:19)
[2018-08-10] MEDS: Insulin LISPRO* 1 UNITS UNIT SUBCUT SCH ×2 (09:19→12:00)
[2018-08-10] MEDS: oxyCODONE SR TAB(*) 10 MG TAB.SR PO SCH (09:20)
[2018-08-10] MEDS: Bumetanide TAB* 2 MG PO SCH (09:20)
[2018-08-10] MEDS: Atorvastatin* 40 MG TAB PO SCH (09:20)
[2018-08-10] MEDS: Aspirin EC TAB* 81 MG TAB.EC PO SCH (09:21)
[2018-08-10] MEDS: Clopidogrel TAB* 75 MG PO SCH (09:21)
[2018-08-10] MEDS: Metoprolol Succinate XL TAB* 25 MG PO SCH (09:21)
[2018-08-10] MEDS ORDERED: Collagenase 250 MG/GM OINT* 30 GM TOPICAL SCH (11:30)
--- NOTE | 2018-08-10 11:34 | PN ---
Progress Note - Progress Note Date of Service: 08/10/18 Note: S: no sig change; anticipates d/c to home today on po abx O: Vital Signs - 8 hr 08/10/18 08/10/18 08/10/18 03:45 04:08 05:12 Temperature 97.3 F Pulse Rate 73 Respiratory 16 16 18 Rate Blood Pressure 107/55 (mmHg) O2 Sat by Pulse 94 Oximetry 08/10/18 08/10/18 07:44 09:20 Temperature 98.0 F Pulse Rate 66 Respiratory 18 18 Rate Blood Pressure 106/47 (mmHg) O2 Sat by Pulse 96 Oximetry LLE: some scaling around wounds, but I did not take dsg down (changed by myself last pm). Min edema A/P: open LLE wounds, infected, but improved; s/p angioplasty L SFA by radiology w/ improvement Likely home today; discussed wound mgmnt w/ Dr. Heck; will change dsgs to santyl (which she has used at home) q day; add LIAM wrap for compression. Wound clinic f/u w/ Dr. Heck next Thu.
[2018-08-10] MEDS: Neomycin/Polym/Bacit TOP OINT* 15 GM TOPICAL SCH (16:07)
--- NOTE | 2018-08-11 05:43 | DS ---
CC: Dr. Hurst; Dr. Sharma; Dr. Heck * DISCHARGE SUMMARY: DATE OF ADMISSION: 08/03/18 DATE OF DISCHARGE: 08/10/18 PROVIDER: MARISA Medina. ATTENDING PHYSICIAN: Dr. Jason Cummins * (dictated by MARISA Medina). PRIMARY CARE PROVIDER: Dr. Hurst. CONSULTING INTERVENTIONAL RADIOLOGIST: Dr. Sharma. CONSULTING GENERAL SURGEON: Dr. Heck. PRIMARY DIAGNOSES: 1. Superficial femoral artery occlusion. 2. Open left lower extremity wound with surrounding cellulitis. 3. Acute kidney injury. SECONDARY DIAGNOSES: 1. Diabetes mellitus type 2. 2. Chronic hypoxic respiratory failure, on 2 liters oxygen at night. 3. Basal cell carcinoma, status post excision on right hand. 4. Hypertension. 5. Obesity. 6. Chronic pain syndrome. 7. Restless leg syndrome. 8. Diabetic neuropathy. 9. Coronary artery disease, status post coronary artery bypass surgery. PROCEDURES: 1. 08/04/[address] Sharma, diagnostic pelvic and left lower extremity arteriogram. 2. Revascularization of left mid localized SFA occlusion utilizing catheter and wire technique. 3. Atherectomy and balloon angioplasty of previous occluded mid level SFA. 4. Balloon angioplasty of the more proximal superficial femoral artery and left common femoral artery. 5. Percutaneous Mynx closure device to the right common femoral arteriotomy. STUDIES: On 08/02/18, CT angiogram of the abdominal aorta and bilateral lower extremity edema. Impression: Subcutaneous edema. Please see history and physical exam for report. Lower extremity x-ray 08/02/18, radiographic findings consistent with 2 medial left lower leg wounds and the overall presence of cellulitis and/or edema. PERTINENT LAB DATA: White blood cell count 11.3 at admission. Creatinine 1.21 on day of discharge. DISCHARGE MEDICATIONS: 1. Aspirin 81 mg daily. 2. Plavix 75 mg p.o. daily. 3. Levofloxacin 500 mg p.o. q.24 hours x6 days. 4. Oxycodone SR tab 10 mg p.o. q.12 hours p.r.n. severe pain, maximum daily dose 20 mg. 5. Collagenase 250 mix/g ointment 1 application topically daily. Continued home medications: 1. Pramipexole 1 mg p.o. t.i.d. 2. Bumetanide 2 mg p.o. daily. 3. Lyrica 150 mg p.o. q.8 hours. 4. Hydrocodone/acetaminophen 10/325 one to two tabs p.o. q.4 hours p.r.n. pain. 5. Atorvastatin 40 mg p.o. daily. 6. Losartan 25 mg p.o. daily. 7. Metoprolol 12.5 mg p.o. daily. 8. Glipizide 20 mg p.o. daily. 9. Jardiance 10 mg p.o. daily. 10. Docusate 100 mg p.o. at bedtime. HISTORY OF PRESENT ILLNESS/HOSPITAL COURSE: Lily Yo is a 72-year-old white female with past medical history significant for coronary artery disease, status post CABG in April, diabetes, hypertension, obesity, who presented to the emergency department on 08/02/18 due to left lower extremity wound that was painful. Please see history and physical exam written by Dr. Shalom Velez on 08/03/18 for further details. Please note that the patient reported to emergency department on 08/02/18 in the evening. The patient was found to have a superficial femoral artery occlusion which was managed by interventional radiologist Dr. Sharma. Afterwards, the wound was debrided at bedside by general surgeon Dr. Heck on 08/06/18. Dr. Heck directed wound care throughout her stay. During her stay, she did receive Zosyn for coverage of her wound as her wound initially grew E. coli and pseudomonas. She did receive initial empiric coverage with vancomycin until MRSA negative lab. The more distal leg wound grew a mixture of Pseudomonas aeruginosa, E. coli, Enterococcus faecalis, Finegoldia magna, and Peptoniphilus asaccharolyticus. Infectious disease specialist Dr. Lyle recommended that Levaquin orally would be sufficient for the patient as she had already received several days of IV Zosyn, which was sufficient for anaerobic coverage. During her hospital stay , her pain was managed with additional opioids as the patient takes opioids chronically. Her wound has not resolved but is managed with her current medication. During her stay, she did have an increase in serum creatinine from her baseline, which is likely due to a combination of Zosyn and vancomycin. During her hospital stay, her diabetes was managed with sliding scale insulin as well as basal glargine coverage. Her home metoprolol was decreased to 12.5 mg daily and her losartan was held given her blood pressures were at times hypotensive, otherwise normotensive. On the day of discharge, the patient reports chronic bilateral lower extremity pain as well as acute wound pain in the left extremity, which is appropriately managed with pain medications. Denies fevers or chills. Denies chest pain. Denies shortness of breath, nausea, vomiting, or abdominal pain. REVIEW OF SYSTEMS: An 11-point review of systems was completed and all pertinent positives and negatives are above in the HPI. All other system are negative. PHYSICAL EXAMINATION: General: Obese white female, sitting upright in hospital chair, appearing in no acute distress. Head: Normocephalic, atraumatic. Eyes: PERRL, sclerae anicteric. ENT: Mucous membranes moist. Neck: Supple without JVD. Cardiac: Regular rate and rhythm without murmurs, rubs, or gallops. Lungs: Clear to auscultation. Abdomen: Abdomen is soft, nontender, nondistended. Extremities: Left lower extremity wound packed with dressing. There is purulence to packing. Did not visualize the entire wound so as not to disrupt wound care. There is erythema in the left lower extremity diffusely from the level of the knee and then inferiorly. There is +1 pitting edema bilaterally in the lower extremities pretibially. No cyanosis or clubbing. Neuro: The patient is alert and oriented x3. No focal deficits. DISCHARGE PLAN: Diet: Heart healthy diet, carbohydrate consistent diet. Activity: The patient is to return to her normal activity as tolerated. The patient is receiving wound care daily from [facility] and will follow up in the wound clinic on 08/18/[address] Heck to determine the frequency of the patient's wound care and if there will be any changes. They will be applying the collagenase cream that was prescribed. The patient is recommended to follow up with a vascular surgeon regarding her peripheral arterial disease. She is recommended to call Dr. Erickson's office at [phone] at [facility] , but this physician does additionally have office time in [place] as well as [place]. The patient is to follow up with her primary care provider within 1 week or sooner. It is advised at this time that her BMP be rechecked to evaluate if her creatinine is downtrending. At this time, evaluation of her blood pressure medications are recommended as the patient was at times hypotensive during her stay. At this time, it is also recommended that the patient's diabetes medication be followed up. Dr. Sharma, who performed the patient's angioplasty, recommends followup and imaging in the future. For the patient's coronary artery disease, she is to continue her home medications at this time. For diabetes, she is to continue her previous home medications at this time. For her restless leg syndrome, she is to continue her previous home medications at this time. CONDITION ON DISCHARGE: Stable. DISPOSITION: Home. TIME SPENT: Approximately 50 minutes was spent on this discharge, approximately half of this time was spent at bedside counseling the patient and evaluating the patient. MARISA MEDINA [id number]/[facility] #: [id number]
== END 2018-08-10 16:30 | disposition home health service (06) | DRG 271 ==
LOC: ED 17:44 → ICU 08-03 02:56 → MEDTELE 08-03 10:57
PROVIDERS: ADMIT Student in an Organized Health Care Education/Training Program; ATTEND Internal Medicine
PROC: 0JDP0ZZ Extraction of Left Lower Leg Subcutaneous Tissue and Fascia, Open Approach (ICD-10-PCS; 2018-08-04)
PROC: 047L3Z1 Dilation of Left Femoral Artery using Drug-Coated Balloon, Percutaneous Approach (ICD-10-PCS; 2018-08-04)
PROC: B41GYZZ Fluoroscopy of Left Lower Extremity Arteries using Other Contrast (ICD-10-PCS; 2018-08-04)
PROC: 04CL3ZZ Extirpation of Matter from Left Femoral Artery, Percutaneous Approach (ICD-10-PCS; principal; 2018-08-04 12:00)
DX: E11.51 Type 2 diabetes mellitus with diabetic peripheral angiopathy without gangrene (principal); L03.116 Cellulitis of left lower limb; T81.30XA Disruption of wound, unspecified, initial encounter; I50.32 Chronic diastolic (congestive) heart failure; I13.0 Hypertensive heart and chronic kidney disease with heart failure and stage 1 through stage 4 chronic kidney disease, or unspecified chronic kidney disease; N17.9 Acute kidney failure, unspecified; J96.11 Chronic respiratory failure with hypoxia; L97.229 Non-pressure chronic ulcer of left calf with unspecified severity; L97.429 Non-pressure chronic ulcer of left heel and midfoot with unspecified severity; G89.4 Chronic pain syndrome; G25.81 Restless legs syndrome; I25.10 Atherosclerotic heart disease of native coronary artery without angina pectoris; B96.20 Unspecified Escherichia coli [E. coli] as the cause of diseases classified elsewhere; B96.5 Pseudomonas (aeruginosa) (mallei) (pseudomallei) as the cause of diseases classified elsewhere; B95.2 Enterococcus as the cause of diseases classified elsewhere; E66.01 Morbid (severe) obesity due to excess calories; B96.89 Other specified bacterial agents as the cause of diseases classified elsewhere; M79.7 Fibromyalgia; E78.00 Pure hypercholesterolemia, unspecified; G47.30 Sleep apnea, unspecified; K21.9 Gastro-esophageal reflux disease without esophagitis; M19.90 Unspecified osteoarthritis, unspecified site; E11.42 Type 2 diabetes mellitus with diabetic polyneuropathy; F41.9 Anxiety disorder, unspecified; F32.9 Major depressive disorder, single episode, unspecified; R40.2362 Coma scale, best motor response, obeys commands, at arrival to emergency department; R40.2142 Coma scale, eyes open, spontaneous, at arrival to emergency department; R40.2252 Coma scale, best verbal response, oriented, at arrival to emergency department; I87.8 Other specified disorders of veins; S81.002A Unspecified open wound, left knee, initial encounter; G89.29 Other chronic pain; E11.621 Type 2 diabetes mellitus with foot ulcer; M54.5 Low back pain; E11.22 Type 2 diabetes mellitus with diabetic chronic kidney disease; N18.3 Chronic kidney disease, stage 3 (moderate); I95.9 Hypotension, unspecified; R06.00 Dyspnea, unspecified; Z88.8 Allergy status to other drugs, medicaments and biological substances; Z88.1 Allergy status to other antibiotic agents; Z87.891 Personal history of nicotine dependence; Z91.041 Radiographic dye allergy status; Z87.11 Personal history of peptic ulcer disease; Z83.3 Family history of diabetes mellitus; Z79.02 Long term (current) use of antithrombotics/antiplatelets; Z79.82 Long term (current) use of aspirin; Z85.828 Personal history of other malignant neoplasm of skin; Z68.37 Body mass index [BMI] 37.0-37.9, adult; Z95.1 Presence of aortocoronary bypass graft; Z79.84 Long term (current) use of oral hypoglycemic drugs; Z80.8 Family history of malignant neoplasm of other organs or systems
CPT/HCPCS: 36415; 71045; 75635; 75736; 76937; 80048; 80053; 80202; 83605; 83735; 84100; 85025; 85027; 85347; 85610; 85652; 86140; 86141; 87040; 87070; 87076; 87077; 87186; 87205; 87640; 87641; 93005; 93922; 99156; 99157; 99285; A9270-GY; C1724; C1725; C1760; C1769; C1887; C1894; G8978-GP-CI; G8979-GP-CI; G8980-GP-CI; J1170; J1200; J1644; J1650; J2250; J2270; J2405; J2543; J2930; J3010; J3370; Q9967

== ENCOUNTER 2022-11-19 15:45 | Inpatient (IN) ==
[2022-11-19] MEDS ORDERED: Vancomycin 1,000 MG in NS 0.9% 250 ml 250 ML IVPB ONE (17:53)
[2022-11-19] MEDS ORDERED: Piperacillin/Tazobac 3.375 BAG 3.375 GM/100 ML BAG IV ONE (17:53)
[2022-11-19 18:08] LABS: ABS Basophils 0.3 10^3/uL (0.0-0.1); ABS Eosinophils 0.8 10^3/uL (0.0-0.5); ABS Lymphocytes 2.2 10^3/uL (1.0-4.8); ABS Monocytes 1.3 10^3/uL (0.0-0.9); ABS Neutrophils 13.6 10^3/uL (1.5-7.6); ABS Nucleated RBC 0.01 10^3/ul; Eosinophil % 4.1 %; Hematocrit 31.1 % (35-45); Hemoglobin 10.5 g/dL (11.5-14.3); Lymphocyte % 11.9 %; Mean Corpuscular Hemoglobin 27.6 pg (27-33); Mean Corpuscular Hgb Conc 33.7 g/dL (31-36); Mean Corpuscular Volume 82.1 fL (80-97); Mean Platelet Volume 8.6 fL (7.5-11.2); Platelet Count 500 10^3/uL (150-450); Red Blood Count 3.79 10^6/uL (3.63-4.92); Red Cell Distribution Width 15.9 % (12-17); White Blood Count 18.3 10^3/uL (3.8-11.8)
[2022-11-19 18:17] LABS: Activated Partial Thrombo Time 30.1 seconds (26.0-38.0); INR 1.28 (0.83-1.13)
[2022-11-19 18:23] LABS: Albumin 3.1 g/dL (3.2-5.2); Calcium 8.7 mg/dL (8.6-10.3); Total Bilirubin 0.6 mg/dL (0.2-1.0)
[2022-11-19 18:29] LABS: Albumin/Globulin Ratio 0.6 (1-3); C Reactive Protein 132.63 mg/L (<8.01); Creatinine, Serum 0.86 mg/dL (0.51-0.95); Total Protein 8.1 g/dL (6.4-8.9); eGFR CKD-EPI 69.5 (>60)
[2022-11-19] MEDS ORDERED: Vancomycin 1,250 MG in NS 0.9% 250 ml 250 ML IVPB ONE (18:30)
[2022-11-19 19:39] LABS: PCO2 Arterial 37 mmHg (35-45); PO2 Arterial 87 mmHg (80-100)
[2022-11-19 19:41] LABS: High Sensitivity Troponin 1 Hr 16 pg/mL (<15)
[2022-11-19] MEDS ORDERED: HYDROcodone/Acetamin 10/325 TAB (NF) PO PRN (21:00)
[2022-11-19] MEDS: Acetaminophen IV 1 GM/100ML 1,000 MG/100 ML BAG IV SCH (23:04)
[2022-11-19] MEDS ORDERED: Senna TAB 8.6 mg TAB PO PRN (23:05)
[2022-11-19] MEDS ORDERED: NS 0.9% 1000 ml BAG 1,000 ML IV ONE (23:31)
[2022-11-19 23:59] LABS: Urine Appearance Cloudy; Urine Bilirubin Negative (Negative); Urine Blood 2+ (Negative); Urine Color Yellow; Urine Glucose Negative (Negative); Urine Ketones Negative (Negative); Urine Nitrite Positive (Negative); Urine Protein 2+(100 mg/dL) (Negative); Urine Specific Gravity 1.011 (1.002-1.030); Urine Urobilinogen Negative (Negative)
[2022-11-20 00:02] LABS: Urine Bacteria 3+ (Absent); Urine Red Blood Cell 1+(3-5/hpf) (Absent); Urine Squamous Epithelial Cell Present (Absent); Urine White Blood Cell 1+(6-10/hpf) (Absent)
[2022-11-20 00:31] LABS: Osmolality Serum 288 mOsm/kg (275-295)
[2022-11-20 00:31] LABS: Urine Osmo 360 mOsm/kg (150-1150)
[2022-11-20] MEDS: HYDROcodone/Acetamin 10/325 TAB (NF) PO PRN ×2 (00:44→11:57)
[2022-11-20] MEDS ORDERED: Vancomycin per Pharmacy 1 EA NOTE FOLLOW UP PRN (02:23)
[2022-11-20] MEDS ORDERED: ZOSYN 3.375 GM x ONE DOSE over 30 miuntes IV (02:30)
[2022-11-20] MEDS: Enoxaparin 40 MG/0.4 ML SYR SUBCUT SCH (03:11)
[2022-11-20 03:40] LABS: Calcium 7.4 mg/dL (8.6-10.3); Potassium 3.6 mmol/L (3.5-5.0)
[2022-11-20 03:46] LABS: Creatinine, Serum 0.95 mg/dL (0.51-0.95); eGFR CKD-EPI 61.7 (>60)
[2022-11-20] MEDS: Acetaminophen IV 1 GM/100ML 1,000 MG/100 ML BAG IV SCH ×3 (05:41→21:14)
[2022-11-20 06:37] LABS: ABS Basophils 0.1 10^3/uL (0.0-0.1); ABS Eosinophils 0.6 10^3/uL (0.0-0.5); ABS Lymphocytes 2.1 10^3/uL (1.0-4.8); ABS Monocytes 1.2 10^3/uL (0.0-0.9); ABS Neutrophils 8.1 10^3/uL (1.5-7.6); Eosinophil % 5.3 %; Hematocrit 26.8 % (35-45); Hemoglobin 8.8 g/dL (11.5-14.3); Lymphocyte % 17.1 %; Mean Corpuscular Hgb Conc 32.8 g/dL (31-36); Mean Corpuscular Volume 82.3 fL (80-97); Mean Platelet Volume 8.7 fL (7.5-11.2); Platelet Count 393 10^3/uL (150-450); Red Blood Count 3.26 10^6/uL (3.63-4.92); White Blood Count 12.1 10^3/uL (3.8-11.8)
[2022-11-20 07:09] LABS: Calcium 7.4 mg/dL (8.6-10.3); Creatinine, Serum 0.95 mg/dL (0.51-0.95); Magnesium 1.8 mg/dL (1.9-2.7); Potassium 3.6 mmol/L (3.5-5.0); eGFR CKD-EPI 61.7 (>60)
[2022-11-20] MEDS ORDERED: ZOSYN 3.375 GM Q8H per EXTENDED INFUSION IV SCH (07:30)
[2022-11-20] MEDS ORDERED: Potassium EFFERVES 25 meq TAB PO ONE (07:56)
[2022-11-20] MEDS ORDERED: Magnesium Sulfate IV 1GM/100ML 1 GM/100 ML BAG IV ONE (07:57)
[2022-11-20] MEDS: Aspirin EC 81 mg TAB.EC (enteric coated) PO SCH (08:46)
[2022-11-20] MEDS: Polyethylene Glycol 3350 17 GM PACKET PO SCH (08:50)
[2022-11-20] MEDS ORDERED: Vancomycin 750 MG in NS 0.9% 250 ML IVPB SCH ×2 (09:00→12:30)
[2022-11-20] MEDS ORDERED: Morphine 2 MG/ML SYRINGE IV ONE (11:39)
[2022-11-20] MEDS ORDERED: Cefepime 1 GM in Dextrose 1 GM/50 ML BAG IV SCH (12:00)
[2022-11-20] MEDS ORDERED: Naloxone 0.4 mg VIAL 0.4 mg/ml 1 ml VIAL IV PUSH PRN (13:29)
[2022-11-20] MEDS ORDERED: Vancomycin 1,250 MG in NS 0.9% 250 ml 250 ML IVPB SCH (18:30)
[2022-11-20] MEDS ORDERED: Zosyn per Pharmacy NOTE FOLLOW UP SCH (18:30)
[2022-11-20] MEDS: Morphine 2 MG/ML SYRINGE IV PRN (20:59)
[2022-11-20] MEDS ORDERED: Insulin GLARGINE 100 un/ml 10 ml VIAL SUBCUT SCH ×2 (21:00)
[2022-11-21] MEDS: HYDROcodone/Acetamin 10/325 TAB (NF) PO PRN ×2 (00:11→09:59)
[2022-11-21] MEDS: Cefepime 1 GM in Dextrose 1 GM/50 ML BAG IV SCH ×2 (02:03→18:11)
[2022-11-21] MEDS ORDERED: Vancomycin 750 MG in NS 0.9% 250 ML IVPB SCH ×2 (04:00→14:00)
[2022-11-21] MEDS: Morphine 2 MG/ML SYRINGE IV PRN ×2 (05:44→21:47)
[2022-11-21] MEDS: Enoxaparin 40 MG/0.4 ML SYR SUBCUT SCH (05:45)
[2022-11-21 05:49] LABS: Hematocrit 28.6 % (35-45); Hemoglobin 9.5 g/dL (11.5-14.3); Mean Corpuscular Hgb Conc 33.2 g/dL (31-36); Mean Corpuscular Volume 81.1 fL (80-97); Mean Platelet Volume 9.1 fL (7.5-11.2); Platelet Count 420 10^3/uL (150-450); Red Blood Count 3.52 10^6/uL (3.63-4.92); Red Cell Distribution Width 16.3 % (12-17); White Blood Count 11.2 10^3/uL (3.8-11.8)
[2022-11-21 06:27] LABS: Calcium 7.7 mg/dL (8.6-10.3); Creatinine, Serum 1.02 mg/dL (0.51-0.95); Potassium 3.6 mmol/L (3.5-5.0); eGFR CKD-EPI 56.7 (>60)
[2022-11-21] MEDS ORDERED: Vancomycin Trough Check NOTE FOLLOW UP ONE ×2 (08:30→12:00)
[2022-11-21] MEDS ORDERED: Influenza vaccine *QUAD* *2023-24* 0.5 ML SYRINGE IM ONE (09:00)
[2022-11-21] MEDS: Aspirin EC 81 mg TAB.EC (enteric coated) PO SCH (09:06)
[2022-11-21] MEDS: Acetaminophen IV 1 GM/100ML 1,000 MG/100 ML BAG IV SCH (09:07)
[2022-11-21] MEDS: Insulin GLARGINE 100 un/ml 10 ml VIAL SUBCUT SCH (09:07)
[2022-11-21] MEDS: Polyethylene Glycol 3350 17 GM PACKET PO SCH (09:10)
[2022-11-21] MEDS: Potassium EFFERVES 25 meq TAB PO ONE ×2 (09:27→09:29)
[2022-11-21] MEDS ORDERED: Potassium Chlor 20 meq TAB.ER PO ONE (09:34)
[2022-11-21] MEDS: Morphine 4 MG/ML VIAL (1 ml) IV PRN ×2 (10:48→19:52)
[2022-11-21] MEDS ORDERED: HYDROcodone/ACETAMIN 5/325 mg TAB PO PRN (13:18)
[2022-11-21] MEDS ORDERED: Ondansetron 4 mg VIAL 2 MG/ML 2 ml VIAL IV PRN (13:18)
[2022-11-21] MEDS ORDERED: Metoclopramide 5 MG/ML VIAL (10 mg) IV PRN (13:18)
[2022-11-21] MEDS ORDERED: Naloxone 0.4 mg VIAL 0.4 mg/ml 1 ml VIAL IV PRN (13:18)
[2022-11-21] MEDS ORDERED: Propofol 10 MG/ML 20 ML BTL IV ONE ×2 (13:45)
[2022-11-21] MEDS ORDERED: fentaNYL 100 mcg/2 ml 50 MCG/ML VIAL IV ONE (13:49)
[2022-11-21] MEDS ORDERED: HYDROcodone/ACETAMIN 5/325 mg TAB ONE (16:26)
[2022-11-21] MEDS ORDERED: fentaNYL 100 mcg/2 ml 50 MCG/ML VIAL ONE (16:26)
[2022-11-21] MEDS: fentaNYL 100 mcg/2 ml 50 MCG/ML VIAL IV PRN ×3 (16:28→16:50)
[2022-11-21] MEDS ORDERED: Dextrose 50% Syringe 50 ml 25 GM/50 ML SYRINGE IV PUSH PRN (17:40)
[2022-11-21] MEDS: Vancomycin 750 MG in NS 0.9% 250 ML IVPB SCH (20:30)
[2022-11-22] MEDS: Cefepime 1 GM in Dextrose 1 GM/50 ML BAG IV SCH ×2 (02:10→16:14)
[2022-11-22] MEDS: Enoxaparin 40 MG/0.4 ML SYR SUBCUT SCH (06:18)
[2022-11-22] MEDS: Morphine 2 MG/ML SYRINGE IV PRN (06:27)
[2022-11-22] MEDS: Morphine 4 MG/ML VIAL (1 ml) IV PRN ×2 (07:56→16:06)
[2022-11-22] MEDS ORDERED: metroNIDAZOLE IV 500 MG/100ML 500 MG/100 ML BAG IVPB SCH (08:00)
[2022-11-22] MEDS ORDERED: Vancomycin Trough Check NOTE FOLLOW UP ONE (08:00)
[2022-11-22 08:12] LABS: ABS Basophils 0.2 10^3/uL (0.0-0.1); ABS Eosinophils 0.5 10^3/uL (0.0-0.5); ABS Monocytes 1.3 10^3/uL (0.0-0.9); ABS Nucleated RBC 0.01 10^3/ul; Eosinophil % 2.7 %; Hematocrit 30.5 % (35-45); Hemoglobin 10.1 g/dL (11.5-14.3); Lymphocyte % 10.7 %; Mean Corpuscular Hemoglobin 26.9 pg (27-33); Mean Corpuscular Volume 81.6 fL (80-97); Mean Platelet Volume 8.9 fL (7.5-11.2); Nucleated Red Blood Cells % 0.1 /100 WBC (0.0-0.4); Platelet Count 523 10^3/uL (150-450); Red Blood Count 3.74 10^6/uL (3.63-4.92); White Blood Count 19.1 10^3/uL (3.8-11.8)
[2022-11-22 08:20] LABS: Calcium 8.1 mg/dL (8.6-10.3); Creatinine, Serum 0.97 mg/dL (0.51-0.95); Magnesium 1.8 mg/dL (1.9-2.7); Potassium 4.1 mmol/L (3.5-5.0); eGFR CKD-EPI 60.2 (>60)
[2022-11-22] MEDS ORDERED: Magnesium Sulfate 2 gm BAG 2 GM/50 ML BAG IVPB ONE (08:42)
[2022-11-22] MEDS: Insulin GLARGINE 100 un/ml 10 ml VIAL SUBCUT SCH (09:13)
[2022-11-22] MEDS: oxyCODONE SR 10 mg TAB PO SCH ×2 (09:15→21:48)
[2022-11-22] MEDS: Aspirin EC 81 mg TAB.EC (enteric coated) PO SCH (09:15)
[2022-11-22] MEDS: Vancomycin 750 MG in NS 0.9% 250 ML IVPB SCH ×2 (09:16→21:35)
[2022-11-22] MEDS: Polyethylene Glycol 3350 17 GM PACKET PO SCH (09:17)
[2022-11-22] MEDS ORDERED: Magnesium Hydroxide LIQ 30 ML UDC PO PRN (12:36)
[2022-11-22 18:29] LABS: Urine Appearance Cloudy; Urine Bilirubin Negative (Negative); Urine Blood 1+ (Negative); Urine Color Yellow; Urine Glucose 3+(>=500 mg/dL) (Negative); Urine Ketones Negative (Negative); Urine Nitrite Negative (Negative); Urine Protein Negative (Negative); Urine Specific Gravity 1.007 (1.002-1.030); Urine Urobilinogen Negative (Negative)
[2022-11-22 18:51] LABS: Urine Bacteria Absent (Absent); Urine Red Blood Cell 2+(6-10/hpf) (Absent); Urine Squamous Epithelial Cell Present (Absent); Urine White Blood Cell 3+(>20/hpf) (Absent)
[2022-11-22] MEDS: Magnesium Hydroxide LIQ 30 ML UDC PO SCH (21:39)
[2022-11-23] MEDS: Cefepime 1 GM in Dextrose 1 GM/50 ML BAG IV SCH ×2 (02:04→14:44)
[2022-11-23] MEDS: Morphine 4 MG/ML VIAL (1 ml) IV PRN (05:38)
[2022-11-23] MEDS: Enoxaparin 40 MG/0.4 ML SYR SUBCUT SCH (06:16)
[2022-11-23 06:41] LABS: Hematocrit 29.1 % (35-45); Hemoglobin 9.5 g/dL (11.5-14.3); Mean Corpuscular Hemoglobin 26.6 pg (27-33); Mean Corpuscular Hgb Conc 32.5 g/dL (31-36); Mean Corpuscular Volume 81.9 fL (80-97); Mean Platelet Volume 9.2 fL (7.5-11.2); Platelet Count 540 10^3/uL (150-450); Red Blood Count 3.56 10^6/uL (3.63-4.92); Red Cell Distribution Width 16.4 % (12-17); White Blood Count 19.1 10^3/uL (3.8-11.8)
[2022-11-23 06:59] LABS: Calcium 8.1 mg/dL (8.6-10.3); Creatinine, Serum 0.93 mg/dL (0.51-0.95); Magnesium 2.2 mg/dL (1.9-2.7); Potassium 3.5 mmol/L (3.5-5.0); eGFR CKD-EPI 63.3 (>60)
[2022-11-23] MEDS: Vancomycin 750 MG in NS 0.9% 250 ML IVPB SCH ×2 (07:44→20:36)
[2022-11-23] MEDS: Aspirin EC 81 mg TAB.EC (enteric coated) PO SCH (07:49)
[2022-11-23] MEDS: Magnesium Hydroxide LIQ 30 ML UDC PO SCH (07:50)
[2022-11-23] MEDS: Insulin GLARGINE 100 un/ml 10 ml VIAL SUBCUT SCH (07:51)
[2022-11-23] MEDS: Polyethylene Glycol 3350 17 GM PACKET PO SCH ×2 (07:53→20:42)
[2022-11-23] MEDS ORDERED: Potassium EFFERVES 25 meq TAB PO ONE (08:44)
[2022-11-23] MEDS: oxyCODONE SR 10 mg TAB PO SCH (09:06)
[2022-11-23] MEDS ORDERED: Morphine 2 MG/ML SYRINGE IV PRN (11:30)
[2022-11-23] MEDS: oxyCODONE SR 15 mg TAB PO SCH (20:42)
[2022-11-23] MEDS: Senna TAB 8.6 mg TAB PO SCH (20:43)
[2022-11-24] MEDS: Cefepime 1 GM in Dextrose 1 GM/50 ML BAG IV SCH (01:38)
[2022-11-24] MEDS: Enoxaparin 40 MG/0.4 ML SYR SUBCUT SCH (05:22)
[2022-11-24] MEDS ORDERED: Vancomycin Trough Check NOTE FOLLOW UP ONE (07:30)
[2022-11-24 07:40] LABS: Hematocrit 31.8 % (35-45); Hemoglobin 10.2 g/dL (11.5-14.3); Mean Corpuscular Hemoglobin 26.6 pg (27-33); Mean Corpuscular Hgb Conc 32.2 g/dL (31-36); Mean Corpuscular Volume 82.6 fL (80-97); Mean Platelet Volume 9.3 fL (7.5-11.2); Platelet Count 594 10^3/uL (150-450); Red Blood Count 3.85 10^6/uL (3.63-4.92); Red Cell Distribution Width 16.4 % (12-17); White Blood Count 21.4 10^3/uL (3.8-11.8)
[2022-11-24] MEDS: Insulin GLARGINE 100 un/ml 10 ml VIAL SUBCUT SCH (08:00)
[2022-11-24] MEDS: Aspirin EC 81 mg TAB.EC (enteric coated) PO SCH (08:01)
[2022-11-24] MEDS: Senna TAB 8.6 mg TAB PO SCH ×2 (08:01→20:07)
[2022-11-24 08:09] LABS: C Reactive Protein 150.36 mg/L (<8.01); Calcium 8.5 mg/dL (8.6-10.3); Creatinine, Serum 1.07 mg/dL (0.51-0.95); Magnesium 2.1 mg/dL (1.9-2.7); Potassium 4.5 mmol/L (3.5-5.0); eGFR CKD-EPI 53.5 (>60)
[2022-11-24 08:17] LABS: ABS Basophils 0.1 10^3/uL (0.0-0.1); ABS Eosinophils 0.9 10^3/uL (0.0-0.5); ABS Lymphocytes 2.6 10^3/uL (1.0-4.8); ABS Monocytes 1.1 10^3/uL (0.0-0.9); ABS Neutrophils 16.6 10^3/uL (1.5-7.6); Eosinophil % 4.4 %; Lymphocyte % 12.4 %
[2022-11-24] MEDS: Vancomycin 750 MG in NS 0.9% 250 ML IVPB SCH (09:28)
[2022-11-24] MEDS: oxyCODONE SR 15 mg TAB PO SCH ×2 (09:28→20:07)
[2022-11-24] MEDS: Polyethylene Glycol 3350 17 GM PACKET PO SCH ×2 (09:29→20:09)
[2022-11-24] MEDS ORDERED: NS 0.9% 1000 ml BAG 1,000 ML IV SCH (09:30)
[2022-11-24 13:38] LABS: INR 1.28 (0.83-1.13)
[2022-11-24] MEDS: cefTRIAXone 1 gm/50 mL D5W 1 GM/50 ML BAG IV SCH (14:11)
[2022-11-24] MEDS: Vancomycin 500 MG in NS 0.9% 250 ML IVPB SCH (20:00)
[2022-11-25] MEDS: Enoxaparin 40 MG/0.4 ML SYR SUBCUT SCH (05:15)
[2022-11-25 05:24] LABS: Hematocrit 30.1 % (35-45); Hemoglobin 9.8 g/dL (11.5-14.3); Mean Corpuscular Hemoglobin 26.8 pg (27-33); Mean Corpuscular Hgb Conc 32.5 g/dL (31-36); Mean Corpuscular Volume 82.5 fL (80-97); Mean Platelet Volume 9.3 fL (7.5-11.2); Platelet Count 573 10^3/uL (150-450); Red Blood Count 3.65 10^6/uL (3.63-4.92); Red Cell Distribution Width 16.6 % (12-17); White Blood Count 19.9 10^3/uL (3.8-11.8)
[2022-11-25 05:33] LABS: Calcium 8.2 mg/dL (8.6-10.3); Potassium 4.2 mmol/L (3.5-5.0)
[2022-11-25 05:39] LABS: C Reactive Protein 107.14 mg/L (<8.01); Creatinine, Serum 1.09 mg/dL (0.51-0.95); eGFR CKD-EPI 52.3 (>60)
[2022-11-25] MEDS ORDERED: Ondansetron 4 mg VIAL 2 MG/ML 2 ml VIAL IV PRN (07:39)
[2022-11-25 08:58] LABS: RBC Morphology Normal (Normal)
[2022-11-25 08:59] LABS: ABS Basophils 0.3 10^3/uL (0.0-0.1); ABS Neutrophils 15.6 10^3/uL (1.5-7.6); Eosinophil % 5.1 %; Lymphocyte % 10.3 %
[2022-11-25] MEDS: Vancomycin 500 MG in NS 0.9% 250 ML IVPB SCH ×2 (10:41→20:57)
[2022-11-25] MEDS: Aspirin EC 81 mg TAB.EC (enteric coated) PO SCH (10:43)
[2022-11-25] MEDS: oxyCODONE SR 15 mg TAB PO SCH ×2 (10:44→21:02)
[2022-11-25] MEDS: Senna TAB 8.6 mg TAB PO SCH ×2 (10:45→21:02)
[2022-11-25] MEDS: Insulin GLARGINE 100 un/ml 10 ml VIAL SUBCUT SCH (10:45)
[2022-11-25] MEDS: Polyethylene Glycol 3350 17 GM PACKET PO SCH ×2 (10:46→19:26)
[2022-11-25] MEDS: cefTRIAXone 1 gm/50 mL D5W 1 GM/50 ML BAG IV SCH (12:20)
[2022-11-25] MEDS ORDERED: Insulin GLARGINE 100 un/ml 10 ml VIAL SUBCUT SCH (21:00)
[2022-11-26] MEDS: Enoxaparin 40 MG/0.4 ML SYR SUBCUT SCH (05:13)
[2022-11-26 05:32] LABS: Hematocrit 29.4 % (35-45); Hemoglobin 9.5 g/dL (11.5-14.3); Mean Corpuscular Hemoglobin 26.7 pg (27-33); Mean Corpuscular Hgb Conc 32.3 g/dL (31-36); Mean Corpuscular Volume 82.7 fL (80-97); Platelet Count 529 10^3/uL (150-450); Red Blood Count 3.56 10^6/uL (3.63-4.92); Red Cell Distribution Width 16.8 % (12-17); White Blood Count 20.1 10^3/uL (3.8-11.8)
[2022-11-26 05:46] LABS: Calcium 8.5 mg/dL (8.6-10.3); Creatinine, Serum 1.07 mg/dL (0.51-0.95); Potassium 4.1 mmol/L (3.5-5.0); eGFR CKD-EPI 53.5 (>60)
[2022-11-26 08:47] LABS: Rapid COVID-19 Molecular Undetected (Undetected)
[2022-11-26] MEDS: Vancomycin 500 MG in NS 0.9% 250 ML IVPB SCH ×2 (09:10→20:34)
[2022-11-26 09:14] LABS: C Reactive Protein 78.29 mg/L (<8.01)
[2022-11-26] MEDS: Senna TAB 8.6 mg TAB PO SCH ×2 (09:24→21:40)
[2022-11-26] MEDS: Aspirin EC 81 mg TAB.EC (enteric coated) PO SCH (09:26)
[2022-11-26] MEDS: Polyethylene Glycol 3350 17 GM PACKET PO SCH ×2 (09:26→21:42)
[2022-11-26] MEDS: oxyCODONE SR 15 mg TAB PO SCH ×2 (09:30→21:40)
[2022-11-26 09:59] LABS: Osmolality Serum 288 mOsm/kg (275-295)
[2022-11-26 10:00] LABS: Urine Osmo 404 mOsm/kg (150-1150)
[2022-11-26] MEDS ORDERED: methylPREDNISolone SOD SUCC 40 mg/ml 1 ml VIAL IV ONE ×2 (10:17→13:00)
[2022-11-26 10:21] LABS: Urine Creatinine Concentration 60.06 mg/dL (20.00-320.00)
[2022-11-26] MEDS: cefTRIAXone 1 gm/50 mL D5W 1 GM/50 ML BAG IV SCH (12:29)
[2022-11-26] MEDS ORDERED: Iodixanol 320 (CONTRAST) 100 ML SDV ONE ×2 (13:22→14:20)
[2022-11-26] MEDS ORDERED: Heparin 1,000 UNIT/ML 10 ml (10,000 UNITS) CATHLAB/DIALYSIS ONE (13:22)
[2022-11-26] MEDS ORDERED: fentaNYL 100 mcg/2 ml 50 MCG/ML VIAL ONE (13:22)
[2022-11-26] MEDS ORDERED: Midazolam 5 mg/5 ml VIAL 1 mg/ml 5 ml VIAL (5 mg) ONE (13:22)
[2022-11-26] MEDS ORDERED: Lidocaine 1% VIAL 10 MG/ML 30 ML VIAL ONE (13:22)
[2022-11-26] MEDS ORDERED: Heparin 2 UNITS/ML IVPREMIX 3,000 UNIT/1,500 ML BAG IV ONE (13:22)
[2022-11-26] MEDS ORDERED: Albuterol HFA INHALER 8 gm MDI INH PRN (16:30)
[2022-11-26] MEDS ORDERED: Insulin GLARGINE 100 un/ml 10 ml VIAL SUBCUT SCH (21:00)
[2022-11-27] MEDS: Enoxaparin 40 MG/0.4 ML SYR SUBCUT SCH (05:21)
[2022-11-27 06:38] LABS: Hematocrit 28.9 % (35-45); Hemoglobin 9.3 g/dL (11.5-14.3); Mean Corpuscular Hemoglobin 26.5 pg (27-33); Mean Corpuscular Hgb Conc 32.1 g/dL (31-36); Mean Corpuscular Volume 82.6 fL (80-97); Mean Platelet Volume 9.6 fL (7.5-11.2); Platelet Count 551 10^3/uL (150-450); Red Cell Distribution Width 16.8 % (12-17); White Blood Count 27.3 10^3/uL (3.8-11.8)
[2022-11-27 07:14] LABS: C Reactive Protein 55.16 mg/L (<8.01); Calcium 8.4 mg/dL (8.6-10.3); Creatinine, Serum 1.04 mg/dL (0.51-0.95); Magnesium 2.2 mg/dL (1.9-2.7); Potassium 4.1 mmol/L (3.5-5.0); eGFR CKD-EPI 55.4 (>60)
[2022-11-27] MEDS ORDERED: Insulin GLARGINE 100 un/ml 10 ml VIAL SUBCUT ONE (07:15)
[2022-11-27] MEDS ORDERED: Vancomycin Trough Check NOTE FOLLOW UP ONE (07:30)
[2022-11-27] MEDS: Senna TAB 8.6 mg TAB PO SCH ×2 (08:22→21:47)
[2022-11-27] MEDS: oxyCODONE SR 15 mg TAB PO SCH ×2 (08:23→21:47)
[2022-11-27] MEDS: Aspirin EC 81 mg TAB.EC (enteric coated) PO SCH (08:25)
[2022-11-27 08:26] LABS: ABS Basophils 0.2 10^3/uL (0.0-0.1); ABS Lymphocytes 2.1 10^3/uL (1.0-4.8); ABS Monocytes 1.2 10^3/uL (0.0-0.9); ABS Neutrophils 23.8 10^3/uL (1.5-7.6); Eosinophil % 0.2 %; Lymphocyte % 7.5 %
[2022-11-27] MEDS: Polyethylene Glycol 3350 17 GM PACKET PO SCH (08:28)
[2022-11-27] MEDS: Vancomycin 500 MG in NS 0.9% 250 ML IVPB SCH (11:20)
[2022-11-27] MEDS: cefTRIAXone 1 gm/50 mL D5W 1 GM/50 ML BAG IV SCH (13:07)
[2022-11-27] MEDS ORDERED: Insulin GLARGINE 100 un/ml 10 ml VIAL SUBCUT SCH (21:00)
[2022-11-28] MEDS: Polyethylene Glycol 3350 17 GM PACKET PO SCH ×3 (00:32→20:49)
[2022-11-28 04:49] LABS: Hematocrit 28.3 % (35-45); Hemoglobin 9.1 g/dL (11.5-14.3); Mean Corpuscular Hemoglobin 26.9 pg (27-33); Mean Corpuscular Hgb Conc 32.2 g/dL (31-36); Mean Corpuscular Volume 83.5 fL (80-97); Mean Platelet Volume 9.3 fL (7.5-11.2); Platelet Count 494 10^3/uL (150-450); Red Blood Count 3.39 10^6/uL (3.63-4.92); Red Cell Distribution Width 16.7 % (12-17); White Blood Count 17.6 10^3/uL (3.8-11.8)
[2022-11-28 05:09] LABS: Potassium 4.3 mmol/L (3.5-5.0)
[2022-11-28 05:10] LABS: Calcium 8.6 mg/dL (8.6-10.3); Creatinine, Serum 1.09 mg/dL (0.51-0.95); Magnesium 2.1 mg/dL (1.9-2.7); eGFR CKD-EPI 52.3 (>60)
[2022-11-28] MEDS: Enoxaparin 40 MG/0.4 ML SYR SUBCUT SCH (05:27)
[2022-11-28 06:41] LABS: Anisocytosis 1+
[2022-11-28 06:43] LABS: Platelet Morphology Large
[2022-11-28 06:46] LABS: ABS Basophils 0.3 10^3/uL (0.0-0.1); ABS Eosinophils 0.6 10^3/uL (0.0-0.5); ABS Lymphocytes 3.4 10^3/uL (1.0-4.8); ABS Monocytes 1.1 10^3/uL (0.0-0.9); ABS Neutrophils 12.2 10^3/uL (1.5-7.6); ABS Nucleated RBC 0.01 10^3/ul; Eosinophil % 3.3 %; Lymphocyte % 19.4 %
[2022-11-28] MEDS ORDERED: Insulin GLARGINE 100 un/ml 10 ml VIAL SUBCUT ONE (07:14)
[2022-11-28] MEDS: Senna TAB 8.6 mg TAB PO SCH ×2 (08:10→20:41)
[2022-11-28] MEDS: Aspirin EC 81 mg TAB.EC (enteric coated) PO SCH (08:10)
[2022-11-28] MEDS: oxyCODONE SR 15 mg TAB PO SCH ×2 (08:10→20:42)
[2022-11-28] MEDS: Vancomycin 500 MG in NS 0.9% 250 ML IVPB SCH ×2 (08:21→19:51)
[2022-11-28] MEDS: cefTRIAXone 1 gm/50 mL D5W 1 GM/50 ML BAG IV SCH (11:20)
[2022-11-28] MEDS ORDERED: Insulin GLARGINE 100 un/ml 10 ml VIAL SUBCUT SCH (21:00)
[2022-11-29] MEDS: Enoxaparin 40 MG/0.4 ML SYR SUBCUT SCH (05:43)
[2022-11-29 06:26] LABS: Hemoglobin 9.3 g/dL (11.5-14.3); Mean Corpuscular Hemoglobin 26.6 pg (27-33); Mean Corpuscular Hgb Conc 32.1 g/dL (31-36); Mean Corpuscular Volume 82.9 fL (80-97); Mean Platelet Volume 9.3 fL (7.5-11.2); Platelet Count 466 10^3/uL (150-450); Red Cell Distribution Width 17.3 % (12-17); White Blood Count 17.4 10^3/uL (3.8-11.8)
[2022-11-29 06:27] LABS: Calcium 8.5 mg/dL (8.6-10.3); Creatinine, Serum 0.85 mg/dL (0.51-0.95); Magnesium 2.1 mg/dL (1.9-2.7); Potassium 4.6 mmol/L (3.5-5.0); eGFR CKD-EPI 70.5 (>60)
[2022-11-29 06:31] LABS: ABS Basophils 0.3 10^3/uL (0.0-0.1); ABS Eosinophils 0.8 10^3/uL (0.0-0.5); ABS Lymphocytes 3.6 10^3/uL (1.0-4.8); ABS Monocytes 0.9 10^3/uL (0.0-0.9); ABS Neutrophils 11.9 10^3/uL (1.5-7.6); Eosinophil % 4.7 %; Lymphocyte % 20.4 %
[2022-11-29] MEDS: Vancomycin 750 MG in NS 0.9% 250 ml 250 ML IVPB SCH (10:43)
[2022-11-29] MEDS: Senna TAB 8.6 mg TAB PO SCH ×2 (10:48→20:07)
[2022-11-29] MEDS: Aspirin EC 81 mg TAB.EC (enteric coated) PO SCH (10:48)
[2022-11-29] MEDS: oxyCODONE SR 15 mg TAB PO SCH ×2 (10:50→20:06)
[2022-11-29] MEDS: Polyethylene Glycol 3350 17 GM PACKET PO SCH ×2 (10:54→19:52)
[2022-11-29] MEDS: cefTRIAXone 1 gm/50 mL D5W 1 GM/50 ML BAG IV SCH (12:22)
[2022-11-29] MEDS: Insulin GLARGINE 100 un/ml 10 ml VIAL SUBCUT SCH (20:08)
[2022-11-30] MEDS: Enoxaparin 40 MG/0.4 ML SYR SUBCUT SCH (06:07)
[2022-11-30] MEDS: Aspirin EC 81 mg TAB.EC (enteric coated) PO SCH (08:20)
[2022-11-30] MEDS: Senna TAB 8.6 mg TAB PO SCH ×2 (08:25→20:46)
[2022-11-30] MEDS: Vancomycin 750 MG in NS 0.9% 250 ml 250 ML IVPB SCH (09:30)
[2022-11-30] MEDS: Polyethylene Glycol 3350 17 GM PACKET PO SCH ×2 (10:52→20:35)
[2022-11-30] MEDS: oxyCODONE SR 15 mg TAB PO SCH ×2 (12:14→20:46)
[2022-11-30] MEDS: cefTRIAXone 1 gm/50 mL D5W 1 GM/50 ML BAG IV SCH (12:16)
[2022-11-30] MEDS: Insulin GLARGINE 100 un/ml 10 ml VIAL SUBCUT SCH (20:47)
[2022-11-30] MEDS ORDERED: Morphine 2 MG/ML SYRINGE IV ONE (23:34)
[2022-11-30] MEDS ORDERED: Morphine 2 MG/ML SYRINGE ONE (23:36)
[2022-12-01] MEDS: Enoxaparin 40 MG/0.4 ML SYR SUBCUT SCH (05:11)
[2022-12-01] MEDS ORDERED: Vancomycin Trough Check NOTE FOLLOW UP ONE (08:30)
[2022-12-01] MEDS: Aspirin EC 81 mg TAB.EC (enteric coated) PO SCH (09:55)
[2022-12-01] MEDS: oxyCODONE SR 15 mg TAB PO SCH (09:55)
[2022-12-01 10:44] VITALS: BP 141/78
[2022-12-01] MEDS: Polyethylene Glycol 3350 17 GM PACKET PO SCH (10:56)
[2022-12-01] MEDS: Senna TAB 8.6 mg TAB PO SCH (10:57)
[2022-12-01 12:19] LABS: Creatinine, Serum 0.84 mg/dL (0.51-0.95); eGFR CKD-EPI 71.5 (>60)
[2022-12-01] MEDS ORDERED: Vancomycin 1,000 MG in NS 0.9% 250 ml 250 ML IVPB SCH (14:00)
== END 2022-12-01 14:15 | DRG 854 ==
LOC: ED 15:45 → SUATTDRO 19:26 → EDHOLD 19:26 → MED 11-20 15:59
PROVIDERS: ADMIT Internal Medicine; ATTEND Internal Medicine